=== PATIENT | female | born 1955 | race Caucasian/White ===

== ENCOUNTER 2018-10-11 22:30 | Emergency (ER) | payer BC, SELFPAY ==
--- NOTE | 2018-10-11 00:02 | DI.CT_ITS ---
SYMPTOM/DIAGNOSIS: RUQ PAIN CT ABDOMEN AND PELVIS: The study was carried out with intravenous administration of 87 cc Omnipaque 350. The liver is unremarkable. There is no evidence of cholelithiasis or cholecystitis. There is no evidence of ductal dilatation. The pancreas and spleen are intact. The kidneys are unremarkable. The adrenals are intact. There is no evidence of bowel obstruction. Note is made of diverticulosis. There is nothing to suggest an acute appendix. The bladder is unremarkable. The reproductive organs as visualized are unremarkable. There is no evidence of free air or fluid in the intraperitoneal space. Note is made of an L-5 on S-1 grade 1 listhesis. The soft tissues are unremarkable. There is no evidence of an aortic aneurysm. There is no evidence of lymphadenopathy. SUMMARY: No evidence of an acute abdomen.
[2018-10-11 22:33] VITALS: BP 137/52; PULSE 73; RESP 20; TEMP 36.3; O2SAT 100
--- NOTE | 2018-10-11 22:44 | ED.GENADUL_ITS ---
Discharge Plan Disposition Patient Disposition: HOME Condition: Good Discharge Details Chief Complaint: Abd Prob Clinical Impression: Abdominal pain Primary Care Provider: Lionel Andres ED Provider: Sean Salcedo Home Meds and New Rx's Prescriptions: Continued albuterol sulfate [ProAir HFA] 8.5 GM HFA aerosol inhaler 2 puff Inhalation Q6H PRN Qty: 1 RF: 4 Discharge Instructions Instructions: Abdominal Pain (ED) Additional Instructions: Your laboratory studies and CT scan were unremarkable tonight other than a low potassium. Please follow-up with primary care for further evaluation especially if intermittent pain. Return to ED if you develop persistent/worsening pain, fever, vomiting, chest pain, shortness of breath. Referrals: Lionel Andres MD [Primary Care Provider] - Medical Decision Making <Haroldo Chung NP - Last Filed: 10/12/18 00:54> Patient presenting to the emergency department for chief complaint of abdominal pain. Patient states approximately 15 minutes prior to arrival she was sitting on the couch watching TV when she had severe sudden right upper quadrant and epigastric pain. Patient states that this is similar to previous episodes of gallbladder attack that happened years ago but they did not remove her gallbladder at that time. Patient does state some nausea associated but otherwise denies any chest pain, shortness of breath, difficulty breathing change in bowel or bladder function. Physical exam shows guarding to the right upper quadrant and tenderness to the epigastrium otherwise unremarkable physical exam. Plan to check labs and CT image of the abdomen. Patient denies any need for pain medication at this time as she states that most of her symptoms have resolved. EKG performed with labs to rule out silent AR and shows sinus rhythm, rate of 61, no STEMI. Nondiagnostic EKG reviewed with attending physician Dr. Salcedo. Review of labs shows unremarkable CBC, CMP that shows slightly decreased potassium, mildly elevated BUN, and elevated AST of 67 otherwise normal bilirubin and other LFTs are within normal limits. <Sean Salcedo MD - Last Filed: 10/12/18 00:34> Patient signed out to me pending CT scan results. She had presented with mostly right upper quadrant abdominal pain which subsequently resolved after 15 to 20 minutes. She has had no recurrence. Her EKG and labs are unremarkable other than low potassium which I will replace. Her CT scan is unremarkable per preliminary radiology read. She has had an ultrasound about a year and a half ago which showed questionable cholelithiasis. She had not had any further episodes of pain like this since that time. Will refer to primary care for follow-up. Return to ED for recurrent/persistent abdominal pain, fever, chest pain, vomiting. Medical Records Medical records reviewed: Yes I reviewed the patient's medical records. Lab Data Lab results reviewed: Yes I reviewed the patient's lab results. HPI <Haroldo Chung NP - Last Filed: 10/12/18 00:54> General Mode of arrival: ambulatory . Date/Time Provider Initiated Documentation: 10/11/18 22:32 . Limitations to Documentation: no limitations . Information obtained by: patient and RN notes reviewed . History of Present Illness 62 year old F presents to the emergency department with the chief complaint of right upper quadrant epigastric pain, described as severe and similar to prior episodes, Quality is described as sharp, and is localized to the abdomen (Right upper quadrant and epigastric). Patient started experiencing this minute(s) (15) and it has been now resolved. No relieving factors improve symptom(s), No exacerbating factors reported . Patient did receive the following treatments prior to arrival, none Related Data Home Medications Medication Instructions Recorded Confirmed albuterol sulfate [ProAir HFA] 2 puff INHALATION Q6H PRN #1 04/12/16 10/11/18 inhaler Allergies Allergy/AdvReac Type Severity Reaction Status Date / Time cinoxate Allergy Mild Verified 10/11/18 22:37 homosalate Allergy Mild Verified 10/11/18 22:37 octinoxate Allergy Mild Verified 10/11/18 22:37 oxybenzone Allergy Mild Verified 10/11/18 22:37 padimate O Allergy Mild FROM Verified 10/11/18 22:37 SUNBLOCK titanium Allergy Mild Verified 10/11/18 22:37 ANIMAL DANDER Allergy Mild CONGESTION Uncoded 10/11/18 22:37 General Stated Complaint: Abd Prob MARAH: 3 Review of Systems <Haroldo Chung NP - Last Filed: 10/12/18 00:54> Constitutional Denies chills, Denies fever(s) and Denies poor appetite Cardiovascular Denies chest pain and Denies dyspnea Respiratory Denies cough and Denies dyspnea Gastrointestinal Reports as per HPI, Reports abdominal pain, Denies melena, Denies change in bowel habits, Denies constipation, Denies diarrhea, Reports nausea and Denies vomiting Genitourinary Denies hematuria, Denies urinary incontinence, Denies urinary hesitancy and Denies urinary urgency Integumentary/Breasts Denies rash PFSH <Haroldo Chung NP - Last Filed: 10/12/18 00:54> Surgical History Breast, Lumpectomy Breast, Mastectomy (12/03/02) Endometrial Biopsy Family History Mother Neoplasm Father Neoplasm Sister Heart disease Brother Lupus Neoplasm Brother No problems noted. Grandfather Neoplasm Grandfather Heart disease Grandmother Stroke Grandmother No problems noted. Maternal Aunt Neoplasm Son No problems noted. Son No problems noted. Daughter No problems noted. Social History Smoking/Tobacco Use Status: Never Alcohol Intake: never Drug use: Never Substance use type: does not use Do you feel safe at home: Yes Do you feel safe in your relationship?: Yes Exam <Haroldo Chung NP - Last Filed: 10/12/18 00:54> Const General: cooperative Orientation: alert, awake and oriented x3 Resp Effort & Inspection: normal respiratory effort and able to speak in complete sentences Auscultation: clear to auscultation bilaterally Cardio Rate: regular rate Rhythm: regular rhythm Heart Sounds: S1 normal and S2 normal GI Palpation: soft, no hepatosplenomegaly, not firm, guarding in the RUQ, no masses, no pulsatile masses, not rigid, no splenomegaly and tender in the epigastrum Auscultation: normal bowel sounds Back/Spine/Pelvis Back: no CVA tenderness Neuro General: alert, awake, oriented x3, gait normal and moves all extremities Course <Haroldo Chung NP - Last Filed: 10/12/18 00:54> Vital Signs Temperature 36.3 C L 10/11/18 22:33 Pulse 73 10/11/18 22:33 Respiratory Rate 20 10/11/18 22:33 Blood Pressure 137/52 L 10/11/18 22:33 Pulse Oximetry 100 10/11/18 22:33 Temperature 36.3 C L 10/11/18 22:33 Temperature Source Skin 10/11/18 22:33 Pulse 73 10/11/18 22:33 Respiratory Rate 20 10/11/18 22:33 Blood Pressure 137/52 L 10/11/18 22:33 Blood Pressure Position Sitting 10/11/18 22:33 Pulse Oximetry 100 10/11/18 22:33 Oxygen Delivery Method Room Air 10/11/18 22:33 Oxygen Flow Rate 0 10/11/18 22:33 Pain Level 2 10/11/18 22:33 Sign Out <Haroldo Chung NP - Last Filed: 10/12/18 00:54> Sign Out Data: Sign Out Comment: Pending CT imaging and results patient signed out to Dr. Salcedo for further disposition and treatment as needed. Last updated by Haroldo Chung NP at 10/11/18 23:52
[2018-10-11 23:12] LABS: Abs Immature Grans 0.01 k/cumm (0.0-0.09); Absolute Basophil Count 0.02 k/cumm (0.0-0.2); Absolute Eosinophil Count 0.11 k/cumm (0.0-0.7); Absolute Lymphocyte Count 2.21 k/cumm (1.2-3.4); Absolute Monocyte Count 0.62 k/cumm (0.11-0.7); Absolute Neutrophil Count 3.25 k/cumm (1.2-6.7); Basophils % 0.3; Eosinophils % 1.8; HCT 38.4 % (36.0-46.0); HGB 12.7 g/dL (12.0-15.5); Immature Grans % 0.2; Lymphocytes % 35.5; Mean Corp. HGB Concentration 33.1 g/dL (32.0-36.0); Mean Corpuscular Hemoglobin 30.3 pg (27.0-33.0); Mean Corpuscular Volume 91.6 fL (80-95); Mean Platelet Volume 9.2 fL (8.0-11.0); Neutrophils % 52.2; Platelet Count 287 x1000/uL (130-400); RBC 4.19 m/cumm (4.00-5.20); RBC Distribution Width 13.5 % (11.7-14.6); White Blood Cell Count 6.22 k/cumm (4.4-10.8)
[2018-10-11 23:33] LABS: ALT 48 U/L (12-78); AST 67 U/L (15-37); Albumin 3.5 g/dL (3.4-5.0); Alkaline Phosphatase 99 U/L (46-116); Anion Gap 5.9 mmol/L (3-11); BUN 19 mg/dL (7-18); Bilirubin, Total 0.2 mg/dL (0.2-1.0); CO2 31.1 mmol/L (21.0-32.0); CREATININE 0.78 mg/dL (0.55-1.02); Calcium 8.6 mg/dL (8.5-10.1); Chloride 102 mmol/L (98-107); Glucose 117 mg/dL (70-100); Lipase 174 U/L (73-393); Magnesium 2.1 mg/dL (1.8-2.4); Potassium 3.1 mmol/L (3.5-5.1); Sodium 139 mmol/L (136-145); Total Protein 6.9 g/dL (6.4-8.2); Troponin I < 0.02 ng/mL (0.00-0.06)
[2018-10-11 23:47] VITALS: BP 128/56; PULSE 73; RESP 18; TEMP 36.5; O2SAT 100
[2018-10-12] MEDS: Omnipaque 350 MG/ML 100 ML BTL IJ (00:02)
[2018-10-12] MEDS: Normal Saline 1,000 ML 1000 ML IV (00:15)
--- NOTE | 2018-10-12 00:17 | DI.VRAD_ITS ---
EXAM: CT Abdomen and Pelvis With Contrast EXAM DATE/TIME: 10/11/2018 10:43 PM CLINICAL HISTORY: 62 years old, female; Abdominal pain; Localized; Right upper quadrant (ruq); Prior surgery; Surgery date: 6+ months; Surgery type: RT breast mastectomy 16 years ago TECHNIQUE: Imaging protocol: Axial computed tomography images of the abdomen and pelvis with intravenous contrast. Coronal and sagittal reformatted images were created and reviewed. Radiation optimization: All CT scans at this facility use at least one of these dose optimization techniques: automated exposure control; mA and/or kV adjustment per patient size (includes targeted exams where dose is matched to clinical indication); or iterative reconstruction. Contrast material: [id number]; Contrast volume: 87 ml; Contrast route: IV 20G LT AC; COMPARISON: CT ABD PELVIS WITH CONTRAST 08/06/2016 8:39 AM FINDINGS: ABDOMEN: Liver: No suspicious lesions. Gallbladder and bile ducts: No acute or concerning findings. Pancreas: Unremarkable. No ductal dilation. Spleen: No suspicious lesions. Adrenals: Unremarkalbe. No suspicious mass. Kidneys and ureters: Unremarkable. No hydro. No suspicious lesions. Stomach and bowel: Colonic diverticulosis. Appendix: No evidence of appendicitis. PELVIS: Bladder: Unremarkable as visualized. Reproductive: Unremarkable as visualized. ABDOMEN and PELVIS: Intraperitoneal space: No free air. No significant fluid collection. Bones/joints: Bilateral L5 pars defects. Grade 1 anterior listhesis of L5 on S1. Soft tissues: Unremarkable. Vasculature: Unremarkable. No acute findings Lymph nodes: Unremarkable. IMPRESSION: No acute findings. Dictated and Authenticated by: Sky Villalpando MD. Ordering:RODRIGO Zarco MD
[2018-10-12 00:20] LABS: Bilirubin Negative (Negative); Blood Negative (Negative); Clarity Clear; Glucose Negative (Negative); Ketones Negative (Negative); Leukocyte Esterase Negative (Negative); Nitrite Negative (Negative); Urobilinogen 0.2 EU/dL (Up TO 0.2)
[2018-10-12] MEDS: Potassium Chloride 20 MEQ TABCR 40 MEQ PO (00:28)
[2018-10-12 00:54] VITALS: BP 134/51; PULSE 75; RESP 16; TEMP 36.5; O2SAT 99
== END 2018-10-12 00:59 | disposition home or self-care (01) ==
PROVIDERS: Nurse Practitioner Family; Emergency Provider Emergency Medicine; PCP Family Medicine
DX: R10.9 Unspecified abdominal pain (principal)
CPT/HCPCS: 36415; 80053; 83690; 93005; 96360; 99285; 74177; 81003; 83735; 84484; 85025; 93010; 99284; J3490

== ENCOUNTER 2018-11-20 13:47 | Outpatient (CLI) | payer BC, SELFPAY ==
[2018-11-20 14:57] LABS: BUN 14 mg/dL (7-18); CREATININE 0.81 mg/dL (0.55-1.02); Calcium 8.9 mg/dL (8.5-10.1); Chloride 102 mmol/L (98-107); Glucose 143 mg/dL (70-100); Potassium 3.9 mmol/L (3.5-5.1); Sodium 142 mmol/L (136-145)
== END 2018-11-20 14:07 ==
PROVIDERS: PCP Family Medicine; Visit Provider Family Medicine
DX: E87.6 Hypokalemia (principal)
CPT/HCPCS: 36415; 80048

== ENCOUNTER 2018-12-19 00:50 | Outpatient (CLI) | payer BC, SELFPAY ==
--- NOTE | 2018-12-19 07:30 | MERGE_ITS ---
*[facility]* *[facility]* [address] [place] [address] Date of study: 12/19/2018 Transthoracic Echocardiography M-mode, complete 2D, complete spectral Doppler, and color Doppler *STUDY CONCLUSIONS* Summary: 1. Left ventricle: The cavity size was normal. Wall thickness was normal. Systolic function was at the lower limits of normal. The estimated ejection fraction was 50-55%. Wall motion was normal; there were no regional wall motion abnormalities. 2. Aortic valve: There was mild to moderate stenosis. There was moderate to severe regurgitation. Peak velocity (S): 2.7m/sec. Mean gradient (S): 18.2mm Hg. Valve area (VTI): 1.2cm^2. Peak velocity ratio of LVOT to aortic valve: 0.37. 3. Mitral valve: There was mild regurgitation. 4. Right ventricle: The cavity size was normal. Wall thickness was normal. Systolic function was normal. *PATIENT PRESENTATION* Height: 162.6cm (64in ) S/D Pressure: 98 / 53 Weight: 60.3kg (132.7lb ) BSA: 1.66m^2 Test start time: 07:40 AM. Test stop time: 08:40 AM. PERFORMING Unknown CONSULTING Lionel Andres ORDERING Lionel Andres REFERRING Lionel Andres PERFORMING [facility] TRACK INSPECTOR RT Erich (R)(CARMINE), JOSE *PROCEDURE DATA* Procedure information: This study was interpreted by [facility]. Pertinent images and digital data are archived for permanent storage and are available for subsequent review. Comparison was made to the study of January 2013. Study status: Routine. Transthoracic echocardiography. M-mode, complete 2D, complete spectral Doppler, and color Doppler. A Transthoracic Echocardiogram was performed. Scanning was performed from the parasternal, apical, subcostal, and suprasternal notch acoustic windows. Images were obtained using an [id number] cardiac ultrasound machine. Image quality was good. Study completion: The patient tolerated the procedure well. There were no complications. History: PMH: AI I35.0. *CARDIAC ANATOMY* Left ventricle: The cavity size was normal. Wall thickness was normal. Systolic function was at the lower limits of normal. The estimated ejection fraction was 50-55%. Wall motion was normal; there were no regional wall motion abnormalities. Diastolic parameters were normal. Aortic valve: Trileaflet; mildly thickened, mildly calcified leaflets. Mobility was not restricted. Doppler: There was mild to moderate stenosis. There was moderate to severe regurgitation. VTI ratio of LVOT to aortic valve: 0.37. Valve area (VTI): 1.2cm^2. Indexed valve area (VTI): 0.7cm^2/m^2. Peak velocity ratio of LVOT to aortic valve: 0.37. Valve area (Vmax): 1.2cm^2. Indexed valve area (Vmax): 0.7cm^2/m^2. Mean velocity ratio of LVOT to aortic valve: 0.36. Valve area (Vmean): 1.2cm^2. Indexed valve area (Vmean): 0.7cm^2/m^2. Mean gradient (S): 18.2mm Hg. Peak gradient (S): 30mm Hg. Aorta: Aortic root: The aortic root was normal in size. Mitral valve: Mildly thickened leaflets. Mobility was not restricted. Doppler: Transvalvular velocity was within the normal range. There was no evidence for stenosis. There was mild regurgitation. Valve area by pressure half-time: 4.1cm^2. Indexed valve area by pressure half-time: 2.5cm^2/m^2. Left atrium: The atrium was normal in size. Right ventricle: The cavity size was normal. Wall thickness was normal. Systolic function was normal. Pulmonic valve: The pulmonary valve appears to be grossly normal. Doppler: Transvalvular velocity was within the normal range. There was no evidence for stenosis. There was mild regurgitation. Peak gradient (S): 1.6mm Hg. Tricuspid valve: Structurally normal valve. Doppler: Transvalvular velocity was within the normal range. There was no evidence for stenosis. There was trivial regurgitation. Pulmonary artery: Pulmonary systolic pressure was within the normal range. Right atrium: The atrium was normal in size. Pericardium: There was no pericardial effusion. Systemic veins: Inferior vena cava: Well visualized. The vessel was patent and normal in size. The respirophasic diameter changes were in the normal range (greater than or equal to 50%). Baseline ECG: Normal sinus rhythm. Measurements Left ventricle Value Reference LV ID, ED, PLAX 5.0 cm 3.5 - 6.0 LV ID, ES, PLAX 3.6 cm 2.1 - 4.0 LV PW thickness, ED, PLAX 1.0 cm LV end-diastolic volume, 1-p A2C 84 ml LV ejection fraction, 1-p A2C 64 % LV end-diastolic volume, 1-p A4C 89 ml LV ejection fraction, 1-p A4C 57 % LV e', lateral 0.082 m/sec LV E/e', lateral 8 LV e', medial 0.102 m/sec LV E/e', medial 6 LV e', average 0.092 m/sec LV E/e', average 7 Ventricular septum Value Reference IVS thickness, ED, PLAX 0.9 cm LVOT Value Reference LVOT ID, A-P 2.0 cm LVOT area 3.2 cm^2 LVOT peak velocity, S 1.01 m/sec LVOT mean velocity, S 0.74 m/sec LVOT VTI, S 26.6 cm LVOT peak gradient, S 4.1 mm Hg LVOT mean gradient, S 2.4 mm Hg Stroke volume (SV), LVOT DP 85 ml Stroke index (SV/bsa), LVOT DP 51 ml/m^2 Aortic valve Value Reference Aortic valve peak velocity, S 2.7 m/sec Aortic valve mean velocity, S 2.1 m/sec Aortic valve VTI, S 71.0 cm Aortic mean gradient, S 18.2 mm Hg Aortic peak gradient, S 30 mm Hg VTI ratio, LVOT/AV 0.37 Aortic valve area, VTI 1.2 cm^2 Velocity ratio, peak, LVOT/AV 0.37 Aortic valve area, peak velocity 1.2 cm^2 Velocity ratio, mean, LVOT/AV 0.36 Aortic valve area, mean velocity 1.2 cm^2 Aortic valve area/bsa, mean velocity 0.7 cm^2/m^2 Aortic regurg deceleration 418 cm/s^2 Aortic regurg pressure half-time 344 ms Aorta Value Reference Aortic root ID, ED 2.9 cm Ascending aorta ID, A-P, S 3.5 cm RVOT Value Reference RVOT VTI, S 10.0 cm Left atrium Value Reference LA volume/bsa, ES, 1-p A4C 44 ml/m^2 LA volume, ES, 2-p 51 ml LA volume/bsa, ES, 2-p 31 ml/m^2 Mitral valve Value Reference Mitral E-wave peak velocity 0.64 m/sec Mitral A-wave peak velocity 0.6 m/sec Mitral deceleration time 183 ms 150 - 230 Mitral pressure half-time 53 ms Mitral E/A ratio, peak 1.06 Mitral valve area, PHT, DP 4.1 cm^2 Pulmonary veins Value Reference Pulmonary vein peak velocity, S 0.44 m/sec Pulmonary vein peak velocity, D 0.48 m/sec Pulmonary vein velocity ratio, peak, 0.92 S/D Pulmonary vein A-wave reversal peak 0.31 m/sec velocity Tricuspid valve Value Reference Tricuspid regurg peak velocity 2.3 m/sec Tricuspid peak RV-RA gradient 21.4 mm Hg Right atrium Value Reference RA area, ES, A4C 15.8 cm^2 8.3 - 19.5 Pulmonic valve Value Reference Pulmonic peak gradient, S 1.6 mm Hg Legend: (L) and (H) tapan values outside specified reference range. I have personally reviewed the images and have reviewed and edited the reported findings. Electronically signed by Florentino Cabrera 12/19/2018 10:31
== END 2018-12-19 01:10 ==
PROVIDERS: PCP Family Medicine; Visit Provider Family Medicine
DX: I35.2 Nonrheumatic aortic (valve) stenosis with insufficiency (principal); I34.0 Nonrheumatic mitral (valve) insufficiency
CPT/HCPCS: 93306

== ENCOUNTER 2019-11-29 03:04 | Outpatient (CLI) | payer BC, SELFPAY ==
[2019-11-29 09:14] LABS: Anion Gap 5.3 mmol/L (3-11); BUN 11 mg/dL (7-18); CO2 29.7 mmol/L (21.0-32.0); CREATININE 0.84 mg/dL (0.55-1.02); Calcium 8.8 mg/dL (8.5-10.1); Calculated LDL 121 mg/dL (<100); Chloride 105 mmol/L (98-107); Cholesterol 199 mg/dL (<200); Glucose 107 mg/dL (74-106); HDL Cholesterol 59 mg/dL (40-60); Potassium 4.1 mmol/L (3.5-5.1); Sodium 140 mmol/L (136-145); Triglyceride 95 mg/dL (<150)
== END 2019-11-29 03:24 ==
PROVIDERS: PCP Family Medicine; Visit Provider Family Medicine
DX: Z00.00 Encounter for general adult medical examination without abnormal findings (principal)
CPT/HCPCS: 36415; 80048; 80061

== ENCOUNTER 2020-01-02 04:33 | Outpatient (CLI) | payer BC, SELFPAY ==
--- NOTE | 2020-01-02 07:28 | DI.US_ITS ---
APPROVED REPORT EXAM: Comprehensive 2D, Doppler, and color-flow Echocardiogram Patient Location: Out-Patient [facility] Preparer: Quin Mullins RDCS (AE) Indications: Aortic Insufficiency Other Information Study Quality: Good Conclusion Left ventricle is top normal in size. Normal wall thickness. Estimated ejection fraction is 60%. T here are no segmental wall motion abnormalities Normal right ventricular size and function Both the left atrium and right atrium are normal in size The aortic valve is sclerotic and trileaflet. There is mild to moderate aortic stenosis. Peak gradi ent is 29 mmHg, mean 16 mmHg, calculated aortic valve area 1.35 cm???. There is moderate aortic regu rgitation Mildly thickened mitral leaflets. Mild to moderate mitral regurgitation Structurally normal pulmonic valve with moderate regurgitation Structurally normal tricuspid valve. Trace to mild tricuspid regurgitation. Normal estimated right ventricular systolic pressure Normal size aortic root Mildly dilated ascending aorta measuring 3.63 cm Wall motion Left Ventricle The left ventricle is top normal size. The left ventricular systolic function is normal. The left jewel tricular ejection fraction is within the normal range. There is normal left ventricular wall thicknes s. There is normal LV segmental wall motion. There is no ventricular septal defect visualized. LVEF i s 60%. Right Ventricle The right ventricle is normal size. The right ventricular systolic function is normal. The RVSP is 17 .1 mmHg. Atria The left atrium size is normal. The right atrium size is normal. The interatrial septum is intact wit h no evidence for an atrial septal defect. Aortic Valve Aortic valve is calcified. Aortic valve is trileaflet. Mild to moderate aortic stenosis. Peak aortic valve gradient is 29.4mmHg. Highest mean aortic valve gradient is 16.3mmHg. Calculated ELLA by the con tinuity equation is 1.38cm2. Moderate aortic regurgitation. Mitral Valve Mildly thickened mitral leaflets No evidence of mitral valve stenosis. Mild to moderate mitral regurg itation. Tricuspid Valve The tricuspid valve is normal in structure. There is no tricuspid valve stenosis. Trace to mild tricu spid regurgitation. Pulmonic Valve The pulmonary valve is normal in structure. There is no pulmonic valvular stenosis. Moderate pulmonic regurgitation. Great Vessels The aortic root is normal in size. The ascending aorta is moderately dilated. Aortic arch is normal i n caliber. IVC is normal in size and collapses >50% with inspiration. Pericardium There is no pericardial effusion. 2D Dimensions IVSD d PLAX 0.73 cm F: 0.6-1.0 LV Vol A2C d MOD 97.9 mL LVPW d PLAX 0.74 cm F: 0.6 - 1.0 LV Vol A4C d MOD 121.4 mL LVID d PLAX 5.03 cm F: 3.8 - 5.2 LA vol/ BSA A2C s A-L 29.8 mL/m2 LVDs 3.65 cm F: 2.2 - 3.5 LA vol/ BSA A4C s A-L 29.8 mL/m2 Ao Root d 3.05 cm F: 2.7 - 3.3 LA Vol/ BSA Biplane s A-L 32.3 mL/m2 RA Area A4C 13.50 cm2 LA Area A4C s MOD 17.75 cm2 RA Vol/ BSA A4C s A-L 20.7 mL/m2 LA Area A2C s MOD 16.40 cm2 Ao Asc Diam d 3.63 cm F: 2.3 - 3.1 LV EF A4C MOD 50.1 % LV EF Teichholz 53.0 % LV EF A2C MOD 48.2 % LVEF (Lentz's) 48.60 % F: 54 - 74 LV EF Biplane MOD 48.6 % LV Volume 87.89 mL F: 46 - 106 SV 53.30 mL LV Volume Index 53.26 mL/m2 F: 29 - 61 SV Index 32.12 mL/m2 LV Vol Biplane MOD 109.7 mL FS 27.40 % M-Mode TAPSE 2.69 cm (M/F) >1.7 LV Diastology MV E' medial 0.093 (>0.07 m/s) E/A Ratio 1.2 LV E/e MED 9.15 (<14) MV E Vmax 0.85 (0.4-1.3 m/s) MV E' lateral 0.108 (>0.1 m/s) MV A Vmax 0.70 (0.4-1.3 m/s) LV E/e LAT 7.90 (<14) MV E/A Ratio 1.17 MV E/E' medial 9.19 MV E/E' lateral 7.94 Aortic Valve LVOT Area 3.13 cm2 AoV Area Vmax 1.38 cm2 LVOT Vmax 1.20 m/s AoV Area/ BSA (Vmax) 0.83 cm2/m2 LVOT Mean Saul. 0.83 m/s ELLA Mean Saul. 1.34 cm2 LVOT Peak Grad 5.7 mmHg ELLA Mean Saul. Index 0.81 cm2/m2 LVOT Mean Grad 3.1 mmHg AR DT 1595 msec LVOT VTI 0.326 m AR PHT 463 msec LVOT Diam s 1.95 cm AoV Vmax 2.71 m/s Velocity Ratio 0.44 AoV Mean Saul. 1.92 m/s AoV Peak Grad 29.4 mmHg LVOT SV 101.97 mL AoV Mean Grad 16.3 mmHg AoV VTI 0.653 m AoV Area VTI 1.56 cm2 AoV Area/ BSA (VTI) 0.94 cm/m2 Mitral Valve MV DT 204 (160-240 msec) MR Vmax 4.69 m/s MV PHT 59 msec MR VTI 1.182 m MV Area PHT 3.72 cm2 MR Peak Grad 88.1 mmHg MR Mean Grad 60.7 mmHg Pulmonary Valve PV Vmax 0.80 (0.5-1.5 m/s) RVOT Peak Gr. 1.22 mmHg PV Peak Grad 2.6 mmHg RVOT Mean Gr. 0.65 mmHg PV Mean Grad 1.3 mmHg RVOT VTI 0.138 m PV VTI 0.176 m RVOT Vmax 0.55 m/s Tricuspid Valve TR Peak Grad 14.0 mmHg TR Vmax 1.88 m/s RA Pressure 3.00 mmHg RVSP (TR) 17.1 mmHg
== END 2020-01-02 04:53 ==
PROVIDERS: PCP Nurse Practitioner; Visit Provider Internal Medicine Cardiovascular Disease
DX: I35.1 Nonrheumatic aortic (valve) insufficiency (principal); I08.3 Combined rheumatic disorders of mitral, aortic and tricuspid valves; I77.810 Thoracic aortic ectasia
CPT/HCPCS: 93306

== ENCOUNTER 2020-07-22 13:56 | Emergency (ER) | payer BC, SELFPAY ==
[2020-07-22 14:00] VITALS: BP 115/46; PULSE 58; RESP 20; TEMP 36.8; O2SAT 99
--- NOTE | 2020-07-22 14:00 | DI.CT_ITS ---
EXAM: CT ABDOMEN PELVIS W CLINICAL HISTORY: Midepigastric abd pain, Nausea vomiting TECHNIQUE: Imaging Protocol: Axial computed tomography images with coronal and sagittal reformatted images were created and reviewed CONTRAST MATERIAL: Intravenous: Omnipaque 350 Contrast volume:100 mL Oral: No COMPARISON: CT CT ABDOMEN PELVIS W from 10/11/2018 FINDINGS: ABDOMEN: Lung Bases: There is an infiltrate in the right middle lobe including a reticular nodular component i n the right middle and adjacent right lower lobe. Liver: Normal density. No measurable mass. Portal, Superior Mesenteric, and Splenic Veins: Unremarkable. Gallbladder and Biliary Tract: Cholelithiasis. The extrahepatic bile duct measures up to 0.8 cm. No pericholecystic fluid or gallbladder wall thickening is seen. Pancreas: Normal density, no abnormal calcifications or inflammatory process. Spleen: Normal. Adrenals: No masses seen. Kidneys: Normal size, contour and axis. No radiodense stones or obstructive uropathy. No masses seen. Abdominal Aorta: Abdominal portion non-dilated. Bowel: No obstruction or bowel wall thickening. No evidence of appendicitis. There is diverticulosis of the descending and sigmoid colon but no evidence of acute diverticulitis. Peritoneal Cavity: No ascites, collection or mesenteric inflammatory response. No free air. Lymph Nodes: Within normal limits. Bones: L5 spondylolysis and grade 1 spondylolisthesis of L5 on S1. Degenerative changes seen at L5-S 1. Soft Tissues: Unremarkable. PELVIS: Bladder: Symmetric distention, no gross wall thickening. Reproductive Organs: Unremarkable as visualized. Lymph Nodes: Within normal limits. Bones: Within normal limits for the patient's age. IMPRESSION: 1. Cholelithiasis. Mild extrahepatic biliary ductal dilatation. If further imaging is warranted a g allbladder ultrasound may be obtained to assess for evidence acute cholecystitis. 2. Colonic diverticulosis but no evidence of acute diverticulitis. 3. Right middle and right lower lobe infiltrates. This may represent scarring, atelectasis or pneumo zoran. Clinical correlation is recommended. 4. Results of this exam have been verbally communicated with provider. RADIATION DOSE DELIVERED: 719.01mGy.cm Total DLP DATA REPOSITORY: All CT scans at this facility are submitted to the National Radiology Data Registry (NRDR) Dose Index Registry (DIR) with the [employer] ([employer]). RADIATION OPTIMIZATION: All CT scans at this facility use at least one of these dose optimization te chniques: automated exposure control; mA and/or kV adjustment per patient size (includes targeted exa ms where dose is matched to clinical indication); or iterative reconstruction.
--- NOTE | 2020-07-22 14:00 | RT.EKG_ITS ---
APPROVED REPORT Exam: Resting ECG Patient Location: E HR:47 bpm ECG Measurements Heart Rate 47 AXIS TN 155 P 67 QRSd 102 QRS 64 QT 534 T 42 QTc 473 Conclusion Sinus bradycardia...rate< 60 Probable left atrial enlargement...P >50mS, <-0.10mV V1 Normal [place] Otherwise normal ECG
--- NOTE | 2020-07-22 14:15 | ED.GENADUL_ITS ---
Discharge Plan Disposition Patient Disposition: HOME Condition: Stable Discharge Details Clinical Impression: Cholelithiasis Primary Care Provider: Clara Garcia ED Provider: Apoorva Mariee Home Meds and New Rx's Prescriptions: New ondansetron 4 mg tablet,disintegrating 4 mg PO Q6H PRN (Reason: nausea and vomiting) Qty: 10 RF: 0 Continued albuterol sulfate [ProAir HFA] 90 mcg/actuation HFA aerosol inhaler 2 puff IH Q6H PRN (Reason: shortness of breath or wheezing) Qty: 8.5 RF: 4 fluticasone propionate [Flonase Allergy Relief] 50 mcg/actuation spray,suspension 1 spray MANDY DAILY RF: 0 Zyrtec 10 mg capsule 10 mg PO DAILY RF: 0 Discharge Instructions Instructions: Biliary Colic (ED), Gallstones (ED) Additional Instructions: As we discussed, you do have gallstones in your gallbladder. This is likely what caused your pain today. Please try to avoid fatty food as we discussed. You have an appointment with general surgery on at 1130. However, in the meantime if you develop any fever/chills, inability stay hydrated, patient pain or other new/worsening symptoms seek care urgently once again. You have been prescribed Zofran if you have recurrence of your nausea. Referrals: Clara Garcia, BRANDON [Primary Care Provider] - Germaine Garcia DO [OSTEOPATHIC DOCTOR] - 07/24/20 11:30 am Discharge Data Discharge Date/Time-TO BE ENTERED AT DEPARTURE: 07/22/20 17:37 Medical Decision Making <Ana Walton - Last Filed: 07/25/20 08:30> 54-year-old female presents to the ER chief complaint of midepigastric abdominal pain associated with nausea vomiting and loose stools. Patient reports that this began around noon. She reports that the pain radiates to the left side of her abdomen and chest. She does appear pale. She does have a past medical history of osteopenia, breast cancer, GI malignancy, asthma, aortic insufficiency, aortic stenosis, arthritis. She takes no prescription medications other than Flonase and albuterol. She denies any hematemesis or hematochezia. Denies any abdominal surgeries. She is a non-smoker does drink 1-2 drinks a day. EKG was reviewed by Nadeem Salcedo MD ER attending, please see his official report. Old EKG is available for review no significant change noted.. Work-up ordered including EKG, troponin, CBC, CMP, lipase, urinalysis, stool PCR, CT abdomen pelvis with IV contrast. White blood cell count is 14.83, absolute neutrophils 12.37, absolute monocytes 1.01, CMP is largely within normal limits, glucose 122, AST 93, initial troponin is within normal limits less than 0.05. Differential diagnosis includes but not limited to coronary artery disease, AAA, cholecystitis, gastroenteritis, small bowel obstruction. 1531: Patient returns from diagnostic imaging patient feels much better after the nausea medication, reports improvement in pain at this time. 1542: Spoke with radiologist Dr. Mathis regarding patient's CT results he reports positive gallstones with a common bile duct measuring approximately 8 mm. He reports no evidence for cholecystitis however, the patient's white blood cell count being elevated at 14.83 this could be a possibility. Care is to be handed off to oncoming provider DEBBIE Hurst pending surgery consult and ultrasound to rule out cholecystitis. <DEBBIE Pace - Last Filed: 07/22/20 17:56> Care transition myself from Belen Oliveira NP with ultrasound and disposition pending. Please see her note regarding initial presentation, history and exam. In brief, patient is a pleasant 54-year-old female who has had no gallstones historically. Presented today with severe abdominal pain. Pain came on after eating a very rich yogurt. Patient reports that this is atypical for her. Labs are significant for leukocytosis with a white count of 14. Lipase is normal. Cardiac work-up was normal. CT scan was initially obtained showing cholelithiasis with mild extrahepatic biliary ductal dilation. Advised gallbladder ultrasound if there was concern for acute cholecystitis. There was question if she may have a pneumonia on CT scan but this does not correlate clinically. Ultrasound was obtained and reviewed by radiologist: FINDINGS: Liver: Normal. No masses. Gallbladder: Cholelithiasis present. 4 mm stones present in the gallbladder neck and possibly cystic duct. Gallbladder wall thickness 1.5 mm. Negative sonographic Hahn sign. Common bile duct: 7.2 mm. Pancreas: Visualized pancreas is unremarkable. Right kidney: In the 8.7 cm. No nephrolithiasis or hydronephrosis. IMPRESSION: Cholelithiasis. 4 mm stone present in the gallbladder neck or proximal cystic duct. No gallbladder wall thickening or edema around the gallbladder. Consult with Dr. Oneil. She advised that the findings should be followed up electively in the office. She is able to make an appointment with another general surgeon this week on . Discussed these findings with the patient. She received Zofran when she was initially evaluated. Patient reports that her symptoms are resolved. She is resting comfortably. Patient I discussed dietary changes to help prevent recurrence of symptoms. She did have significant nausea initially, plan to prescribe Zofran if this works well for her. Strict return precautions were discussed. Also questions and concerns were addressed she is in agreement this plan. Patient will follow up with general surgery on . HPI <Ana Walton - Last Filed: 07/25/20 08:30> General Mode of arrival: ambulatory . Date/Time Provider Initiated Documentation: 07/22/20 13:59 . Limitations to Documentation: no limitations . Information obtained by: patient . HPI Narrative: 54-year-old female presents to the ER chief complaint of midepigastric abdominal pain associated with nausea vomiting and loose stools. Patient reports that this began around noon. She reports that the pain radiates to the left side of her abdomen and chest. She does appear pale. She does have a past medical history of osteopenia, breast cancer, GI malignancy, asthma, aortic insufficiency, aortic stenosis, arthritis. She takes no prescription medications other than Flonase and albuterol. She denies any hematemesis or hematochezia. Denies any abdominal surgeries. She is a non-smoker does drink 1-2 drinks a day. Related Data Home Medications Medication Instructions Recorded Confirmed cetirizine 10 mg capsule 10 mg PO DAILY 11/17/18 07/22/20 fluticasone propionate 50 1 spray MANDY DAILY 10/12/19 07/22/20 mcg/actuation nasal spray,suspension albuterol sulfate 90 mcg/actuation 2 puff IH Q6H PRN #8.5 gm 11/22/19 07/22/20 aerosol inhaler ondansetron 4 mg PO Q6H PRN #10 tab 07/22/20 Previous Rx's Medication Instructions Recorded albuterol sulfate 90 mcg/actuation 2 puff IH Q6H PRN #8.5 gm 11/22/19 aerosol inhaler ondansetron 4 mg PO Q6H PRN #10 tab 07/22/20 Allergies Allergy/AdvReac Type Severity Reaction Status Date / Time cinoxate Allergy Mild Verified 07/24/20 11:31 homosalate Allergy Mild Verified 07/24/20 11:31 octinoxate Allergy Mild Verified 07/24/20 11:31 oxybenzone Allergy Mild Verified 07/24/20 11:31 padimate O Allergy Mild FROM Verified 07/24/20 11:31 SUNBLOCK titanium Allergy Mild Verified 07/24/20 11:31 ANIMAL DANDER Allergy Mild CONGESTION Uncoded 07/24/20 11:31 General Stated Complaint: Abd Prob MARAH: 3 Review of Systems <Ana Walton - Last Filed: 07/25/20 08:30> Narrative: Constitutional: Negative for weight loss, alert and oriented, well groomed, normal body habitus, appears uncomfortable. Appears pale. HEENT: Denies trauma, headaches, blurry vision, nasal discharge, sore throat, trouble swallowing. Chest: Denies chest pain, palpitations, irregular rhythm, hypertension. Respiratory: Denies Shortness of breath, cough, hemoptysis. GI: Denies constipation. Positive midepigastric abdominal pain, nausea vomiting and loose stools x2 days. : Denies dysuria, hematuria, flank pain, rectal bleeding. Neuro: Denies dizziness, blurry vision, weakness, syncope, headache or facial numbness. Hematologic: Denies easy bruising, intolerance to heat or cold, hair loss. PFS <Ana Walton - Last Filed: 07/25/20 08:30> Medical History (Updated 07/24/20 @ 12:17 by Germaine Garcia DO) Pleural effusion Skin tag of vaginal mucosa (02/23/16) seen on speculum exam, friable. Surgical History Breast, Lumpectomy 1989,10/31/02 Breast, Mastectomy (12/03/02) Dr Polo Lopez Endometrial Biopsy 09/06/14; [facility] History of gynecological procedure History of mastectomy Status post breast lumpectomy Family History Mother , 43 Colon cancer Liver cancer Father , 80 Bile duct cancer Sister Heart disease Brother Lupus Prostate cancer Brother No problems noted. Maternal Grandfather , 80s Skin cancer Leukemia Paternal Grandfather , 65 Heart disease Maternal Grandmother , 96 Stroke Paternal Grandmother , 97 No problems noted. Maternal Aunt Breast cancer Pancreatic cancer Son No problems noted. Son No problems noted. Daughter No problems noted. Social History Smoking/Tobacco Use Status: Never Smoking risk assessment performed?: Yes Alcohol Intake: current Alcohol Intake frequency: 0-2 drinks per day Alcohol type: beer and wine Drug use: Never Substance use type: does not use Counseling given: No Counseling provided: none Caregiver/Support person: No Household members: spouse Housing: house Communication Needs: None Do you need help understanding health information?: Rarely Pets and animals: Yes Pets and animals: other Details: Rabbit Sexually active: No Do you think of yourself as: straight/heterosexual Current gender identity: female What is your relationship status?: How often do you talk on the phone with friends or family?: twice per week How often do you get together with friends or relatives?: three or more times per week How often do you attend confucianist or worship services?: 4 or more times per year Do you belong to any clubs or organized social groups?: yes Panel score (0-1 are the most socially isolated patients): 4 What type of physical activity do you participate in: walking Duration: 15-30 minutes/day Frequency: daily Melvina/Confucianism: Church Special melvina needs: No Seatbelt use: always Helmet use: Yes Helmet use: always Drive intox or ride w/intox 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 Appears stated age. Normal body habitus. Head: Normocephalic, no trauma. Eyes: Pupils PERRLA, Red reflex noted, EOM's intact. Eyelids symmetrical without lesions, discharge, or swelling. ENT: Bilateral TM's WNL, External ear normal to inspection, no mastoid TTP, swelling, or erythema, Nasal turbinates WNL, no nasal discharge. Normal dentition, Posterior pharynx WNL, no exudate. Chest: Slightly bradycardic at a rate of 58, normal S1, S2, distal pulses intact. Resp: Lungs clear to auscultation bilaterally, no wheezes, rales, or rhonchi. Abdomen: Generalized tenderness to left upper quadrant, midepigastricl left lower quadrant tenderness. Bowel sounds are diminished. GI: Negative guaiac stool. Patient did have a loose brown BM while here in depa rtment. Musculoskeletal: Normal gait, 5/5 strength to all four extremities. Skin: No suspicious rashes or lesions. Capillary refill less than 2 sec. pale. Neurologic: Cranial nerves II-XII intact. Alert and oriented x 3. DTR's intact. Hematologic/Lymphatic: No ecchymosis, no lymphadenopathy. Course <Ana Walton - Last Filed: 07/25/20 08:30> Vital Signs Vital signs: Vital Signs Temperature 36.8 C 07/22/20 14:00 Pulse 58 L 07/22/20 14:00 Respiratory Rate 20 07/22/20 14:00 Blood Pressure 115/46 L 07/22/20 14:00 Pulse Oximetry 99 07/22/20 14:00 Temperature 36.8 C 07/22/20 14:00 Temperature Source Skin 07/22/20 14:00 Pulse 58 L 07/22/20 14:00 Respiratory Rate 20 07/22/20 14:00 Blood Pressure 115/46 L 07/22/20 14:00 Blood Pressure Position Sitting 07/22/20 14:00 Pulse Oximetry 99 07/22/20 14:00 Oxygen Delivery Method Room Air 07/22/20 14:00 Oxygen Flow Rate 0 07/22/20 14:00 Pain Level 8 07/22/20 14:00 Procedures <Ana Walton - Last Filed: 07/25/20 08:30> Stool Hemoccult Procedural Steps Taken: stool placed in appropriate test area, developer placed on stool and control areas and controls appropriately positive and negative Hemoccult result: negative Sign Out <Ana Walton - Last Filed: 07/25/20 08:30> Sign Out Data: Sign Out Comment: Pending Surgery Consult and US to R/O cholecystitis Last updated by Ana Walton at 07/22/20 15:58
[2020-07-22] MEDS: Ondansetron 4 MG/2 ML VIAL IVP (14:37)
[2020-07-22] MEDS: Normal Saline 1,000 ML 125 ML IV (14:37)
[2020-07-22 14:38] LABS: Abs Immature Grans 0.08 10^3/uL (0.0-0.06); Absolute Basophil Count 0.06 10^3/uL (0.0-0.2); Absolute Eosinophil Count 0.09 10^3/uL (0.0-0.7); Absolute Lymphocyte Count 1.23 10^3/uL (1.2-3.4); Absolute Monocyte Count 1.01 10^3/uL (0.1-0.8); Basophils % 0.4; Eosinophils % 0.6; HCT 39.1 % (36.0-46.0); HGB 12.7 g/dL (11.2-15.7); Immature Grans % 0.5; Lymphocytes % 8.3; MCHC 32.5 % (32.0-36.0); MCV 92.2 fL (80-95); MPV 9.2 fL (8.0-11.0); Monocytes % 6.8; Neutrophils % 83.4; Nucleated RBC 0 %; Platelet Count 333 10^3/uL (130-400); RBC 4.24 10^6/uL (3.93-5.22); RDW 13.1 % (11.7-14.6); WBC 14.83 10^3/uL (4.4-10.8)
[2020-07-22] MEDS: Normal Saline Flush 10 ML SYR IVP (14:38)
[2020-07-22 14:41] LABS: Absolute Neutrophil Count 12.37 10^3/uL (1.2-6.7)
[2020-07-22 14:50] LABS: ALT 57 U/L (14-59); AST 93 U/L (15-37); Albumin 3.7 g/dL (3.4-5.0); Alkaline Phosphatase 91 U/L (46-116); BUN 17 mg/dL (7-18); Bilirubin, Total 0.8 mg/dL (0.2-1.0); CREATININE 0.9 mg/dL (0.55-1.02); Calcium 8.8 mg/dL (8.5-10.1); Chloride 101 mmol/L (98-107); Glucose 122 mg/dL (74-106); Lipase 139 U/L (73-393); Magnesium 2.1 mg/dL (1.8-2.4); Potassium 3.5 mmol/L (3.5-5.1); Sodium 140 mmol/L (136-145); Total Protein 7.4 g/dL (6.4-8.2); Troponin I < 0.05 ng/mL (<0.06)
[2020-07-22] MEDS: Omnipaque 350 MG/ML 100 ML BTL IJ (15:25)
[2020-07-22] MEDS: Normal Saline - Diluent 50 ML VIAL IV (15:26)
--- NOTE | 2020-07-22 15:45 | DI.US_ITS ---
EXAM: US ABDOMEN LIMITED CLINICAL HISTORY: Eval Gallbladder, R/O cholecystitis TECHNIQUE: Ultrasound of complete upper abdomen performed using standard protocol. COMPARISON: CT scan performed same date FINDINGS: There is no ascites evident. LIVER: There are no hepatic lesions evident nor obvious dilatation of intrahepatic ducts. GALLBLADDER/BILIARY: Gallstones are noted. There is small 4 millimeter calculi evident gallbladder n dagoberto and cystic duct. Gallbladder wall thickness is upper normal. The common hepatic duct isslightly dilated, measuring 7mm at the level of rodney hepatis. PANCREAS: There is no evidence of pancreatic mass nor dilatation of the pancreatic duct. RIGHT KIDNEY:normal size with no evidence of solid mass, calculus, nor hydronephrosis. No cortical cy sts evident. IMPRESSION: 1. Cholelithiasis. No gallbladder wall edema nor pericholecystic fluid. 2. Common hepatic duct is slightly dilated measuring 7 millimeters. 3. There is no ascites. DATA REPOSITORY:
--- NOTE | 2020-07-22 16:36 | DI.VRAD_ITS ---
PROCEDURE INFORMATION: Exam: US Abdomen, Limited; Right Upper Quadrant Exam date and time: 07/22/2020 3:53 PM Age: 64 years old Clinical indication: Abdominal pain; Acute TECHNIQUE: Imaging protocol: US abdomen. Real time ultrasound with image documentation. Limited exam focused on the right upper quadrant. COMPARISON: US ABDOMEN ULTRASOUND (P) 07/30/2016 3:12 PM FINDINGS: Liver: Normal. No masses. Gallbladder: Cholelithiasis present. 4 mm stones present in the gallbladder neck and possibly cystic duct. Gallbladder wall thickness 1.5 mm. Negative sonographic Hahn sign. Common bile duct: 7.2 mm. Pancreas: Visualized pancreas is unremarkable. Right kidney: In the 8.7 cm. No nephrolithiasis or hydronephrosis. IMPRESSION: Cholelithiasis. 4 mm stone present in the gallbladder neck or proximal cystic duct. No gallbladder wall thickening or edema around the gallbladder. Dictated and Authenticated by: En Pulido MD. Ordering:TAINA Perez MD
[2020-07-22 17:15] LABS: Bilirubin Negative (Negative); Blood Negative (Negative); Clarity Clear (Clear); Glucose Negative (Negative); Ketones 15 mg/dL (Negative); Leukocyte Esterase Negative (Negative); Nitrite Negative (Negative); Specific Gravity 1.015 (1.005-1.025); Urobilinogen 0.2 EU/dL (Up TO 0.2)
[2020-07-22 17:27] VITALS: BP 116/52; PULSE 94; RESP 18; O2SAT 95
--- NOTE | 2020-07-22 17:29 | NUR.NOTE ---
Referral [facility] Th[facility]. July 24, 2020 at 11:[address] Dr. Avila Note:
[2020-07-22 17:53] VITALS: BP 116/52; PULSE 94; RESP 18; O2SAT 95
[2020-07-23 11:26] LABS: Campylobacter PCR Negative (Negative); Salmonella PCR Negative (Negative); Shiga Toxin PCR Negative (Negative); Shigella/Enteroinvasive Ecoli Negative (Negative)
== END 2020-07-22 17:37 | disposition home or self-care (01) ==
PROVIDERS: Registered Nurse Emergency; Emergency Provider Physician Assistant; PCP Nurse Practitioner
DX: K80.20 Calculus of gallbladder without cholecystitis without obstruction (principal); R11.2 Nausea with vomiting, unspecified
CPT/HCPCS: 36415; 80053; 83690; 87505; 93005; 96361; 96374; 99285; 74177; 76705; 81003; 83735; 84484; 85025; 93010; J2405; J3490

== ENCOUNTER 2020-07-24 00:35 | Outpatient (REF) | payer BC, SELFPAY ==
[2020-07-24 19:19] LABS: ALT 45 U/L (14-59); AST 30 U/L (15-37); Albumin 3.6 g/dL (3.4-5.0); Alkaline Phosphatase 76 U/L (46-116); Anion Gap 5.5 mmol/L (3-11); BUN 13 mg/dL (7-18); Bilirubin, Total 0.5 mg/dL (0.2-1.0); CO2 31.5 mmol/L (21.0-32.0); CREATININE 0.8 mg/dL (0.55-1.02); Calcium 8.7 mg/dL (8.5-10.1); Chloride 102 mmol/L (98-107); Glucose 111 mg/dL (74-106); Potassium 3.6 mmol/L (3.5-5.1); Sodium 139 mmol/L (136-145); Total Protein 6.7 g/dL (6.4-8.2)
[2020-07-24 20:42] LABS: Abs Immature Grans 0.02 10^3/uL (0.0-0.06); Absolute Basophil Count 0.05 10^3/uL (0.0-0.2); Absolute Eosinophil Count 0.08 10^3/uL (0.0-0.7); Absolute Lymphocyte Count 1.73 10^3/uL (1.2-3.4); Absolute Monocyte Count 0.63 10^3/uL (0.1-0.8); Absolute Neutrophil Count 4.17 10^3/uL (1.2-6.7); Basophils % 0.7; Eosinophils % 1.2; HCT 36.7 % (36.0-46.0); HGB 11.9 g/dL (11.2-15.7); Immature Grans % 0.3; Lymphocytes % 25.9; MCH 30.4 pg (27.0-33.0); MCHC 32.4 % (32.0-36.0); MCV 93.9 fL (80-95); MPV 9.7 fL (8.0-11.0); Monocytes % 9.4; Neutrophils % 62.5; Nucleated RBC 0 %; Platelet Count 333 10^3/uL (130-400); RBC 3.91 10^6/uL (3.93-5.22); RDW 13.1 % (11.7-14.6); RDW-SD 44.7 fL; WBC 6.68 10^3/uL (4.4-10.8)
== END 2020-07-24 00:36 | disposition home or self-care (01) ==
LOC: LBN 00:35
PROVIDERS: PCP Nurse Practitioner; Visit Provider Surgery
DX: K80.20 Calculus of gallbladder without cholecystitis without obstruction (principal); K83.8 Other specified diseases of biliary tract; I35.0 Nonrheumatic aortic (valve) stenosis; Z85.3 Personal history of malignant neoplasm of breast; Z80.0 Family history of malignant neoplasm of digestive organs
CPT/HCPCS: 80053; 85025

== ENCOUNTER 2020-08-18 02:08 | Outpatient (CLI) | payer BC, SELFPAY ==
--- NOTE | 2020-08-18 07:12 | DI.MAMMO_ITS ---
EXAM: MG MAMMO SCREENING 60 MIN DUR CLINICAL HISTORY: breast cancer screening,PERSONAL H/O BREAST CA,Z85.3,Z12.39. TECHNIQUE: Bilateral full field digital CC and MLO mammographic images were obtained with 3D tomosyn thesis and utilizing computer aided detection (CAD). COMPARISON: Prior mammograms dating back to 2010, the most recent being 2016.. This patient has had prior right mastectomy for breast cancer. FINDINGS: There are no CAD designations in the left breast. Asymmetric density-nodule towards the upper outer quadrant is unchanged from 2011 and therefore benig n. There are no new spiculated masses nor malignant appearing microcalcification groups. Few benign microcalcifications are again noted centrally. There is no significant architectural distortion nor skin thickening-retraction. IMPRESSION: Stable benign findings. No radiographic evidence of malignancy in the left breast. There has been p revious right mastectomy BI-RADS Category 2 - Benign Findings Breast Density - Category B - Scattered areas of fibroglandular density Breast density Category C or D implies that the patient has dense breast tissue. Dense breast tissue can make it harder to find cancer on a mammogram. Dense breast tissue is also associated with an incr eased risk of breast cancer. This information about the result of the mammogram report was provided to the patient to raise their awareness. Use this report when you speak with the patient about their risks for breast cancer, which includes their family history. At that time, you may recommend additional screening tests (Ultrasoun d or MRI) as these tests may add significant information. A negative radiographic report should not delay biopsy if a dominant or clinically suspicious mass is present. Up to ten percent of cancers are not identified on mammography. A negative report may reinforce clinical impression. Adenosis and dense breasts may obscure an underlying neoplasm. False positive reports average 6 to 10%. Patient will receive a letter notifying them of these results.
== END 2020-08-18 02:28 ==
PROVIDERS: PCP Nurse Practitioner; Visit Provider Nurse Practitioner
DX: Z12.31 Encounter for screening mammogram for malignant neoplasm of breast (principal); Z85.3 Personal history of malignant neoplasm of breast
CPT/HCPCS: 77063; 77067

== ENCOUNTER 2020-08-25 02:43 | Outpatient (CLI) | payer BC, SELFPAY ==
--- NOTE | 2020-08-25 08:15 | DI.MRI_ITS ---
EXAM: MR ABDOMEN WO CLINICAL HISTORY: dilated common bile duct,CHOLELITHIASIS,H/O BREAST CA,K80.20,K83.8,Z85.3 TECHNIQUE: Multiplanar multisequence MRI was performed without contrast. COMPARISON: CT CT ABDOMEN PELVIS W from 07/22/2020 FINDINGS: VISUALIZED LUNG BASES: No pleural effusions evident. There is no ascites evident. LIVER: Liver size is normal. There are no discrete focal hepatic lesions evident. BILIARY: The in gallbladder is now surgically absent. Mild dilatation of the biliary tree. CBD diam eter is 9 millimeters. Minimal prominence of intrahepatic ducts. The pancreatic duct diameter is u pper normal. Mild prominence of intrahepatic ducts. PANCREAS: There is no evidence of pancreatic mass nor dilatation of the pancreatic duct.No peripancre atic fluid collections. SPLEEN: Spleen is not enlarged and there are no intrasplenic lesions.Splenic and portal veins are pat ent ADRENALS: There are no significant adrenal masses. KIDNEYS: No solid renal masses. No hydronephrosis.No cysts evident. ABDOMINAL AORTA: Not enlarged and there is no significant para-aortic adenopathy. ANTERIOR ABDOMINAL WALL/GI: There is no evidence of significant anterior abdominal wall hernia in the field of view of this study.Is no evidence of obvious bowel obstruction. OSSEOUS: There are no lytic osseous lesions in the field of view of this study. IMPRESSION: 1. There to recent CT scan the gallbladder is now surgically absent. CBD diameter is 9 millimeters. There is no obvious calculus nor mass within the CBD and there is no obvious pancreatic head mass. Pancreatic duct is not dilated. 2. 3. DATA REPOSITORY:
== END 2020-08-25 03:03 ==
PROVIDERS: PCP Nurse Practitioner; Visit Provider Surgery
DX: K80.20 Calculus of gallbladder without cholecystitis without obstruction (principal); K83.8 Other specified diseases of biliary tract; Z98.890 Other specified postprocedural states; Z85.3 Personal history of malignant neoplasm of breast; Z80.0 Family history of malignant neoplasm of digestive organs
CPT/HCPCS: 74181

== ENCOUNTER 2020-11-10 03:03 | Outpatient (CLI) | payer BC, SELFPAY ==
[2020-11-10 12:24] LABS: Source Nasal/Nares
[2020-11-10 16:02] LABS: COVID-19 PCR Negative (Negative)
== END 2020-11-10 03:04 | disposition home or self-care (01) ==
LOC: LBO 03:03
PROVIDERS: PCP Nurse Practitioner; Visit Provider Surgery
DX: Z20.822 Contact with and (suspected) exposure to COVID-19 (principal); Z01.818 Encounter for other preprocedural examination
CPT/HCPCS: 87635

== ENCOUNTER 2020-12-03 03:24 | Outpatient (CLI) | payer BC, SELFPAY ==
[2020-12-03 08:35] LABS: Hemoglobin A1C 5.8 % (<5.7)
== END 2020-12-03 03:25 | disposition home or self-care (01) ==
LOC: LBO 03:24
PROVIDERS: PCP Nurse Practitioner; Visit Provider Surgery
DX: Z13.1 Encounter for screening for diabetes mellitus (principal)
CPT/HCPCS: 36415; 80053; 83690; 83036

== ENCOUNTER 2020-12-05 04:07 | Outpatient (CLI) | payer BC, SELFPAY ==
--- NOTE | 2020-12-05 13:20 | DI.RAD_ITS ---
Exam(s) XR CHEST 2V PA LATERAL EXAM: XR CHEST 2V PA LATERAL CLINICAL HISTORY: cough, recent cholecystectomy,R05 TECHNIQUE: COMPARISON: CR CHEST 2 VIEWS PA,LAT from 05/27/2017 FINDINGS: There is a moderate right convex thoracic scoliosis. Heart is not enlarged. There is no pleural eff usion seen. There is a question of increased radiodensity in the lingula which could represent areas of atelectasis or consolidation. Otherwise the lungs appear clear. IMPRESSION: Possible lingular atelectasis and/or consolidation. Appropriate follow-up studies requested. RADIATION DOSE DELIVERED: Total DLP
== END 2020-12-05 04:27 ==
PROVIDERS: PCP Nurse Practitioner; Visit Provider Nurse Practitioner
DX: R05 Cough (principal); Z90.49 Acquired absence of other specified parts of digestive tract
CPT/HCPCS: 71046

== ENCOUNTER 2020-12-25 02:11 | Outpatient (CLI) | payer BC, SELFPAY ==
--- NOTE | 2020-12-25 07:30 | DI.DEXA_ITS ---
Exam(s) XR DEXA BONE DENSITY W/WO ZELDA EXAM: XR DEXA BONE DENSITY W/WO ZELDA CLINICAL HISTORY: osteopenia, M85.80 TECHNIQUE: Routine DEXA evaluation of the lumbar spine, hip, or forearm. COMPARISON: Prior DXA scans including 2005 and 2008 FINDINGS: Performed on a [facility] unit. Lateral image: No compression fracture evident. Lumbar Spine total T-score: -1.7 . Prior reading 2008 was -1.3 Hip total T-score:-2.2. Prior reading in 2008 was -1.3 Independent reading at the femoral neck yields a T-score of -2.7 Forearm total T-score: -2.8 IMPRESSION: Bone mineral density measures in the osteopenia-osteoporosis range. Fracture risk is moderate-high Note: Any spine fracture indicates 5x risk for subsequent spine fracture and 2x risk for subsequent h ip fracture. World Health Organization criteria for BMD interpretation classify patients: Normal...... T- Score at or above -1.0 Osteopenic... T- Score between -1.0 and -2.5 Osteoporosis... T-Score at or below -2.5
== END 2020-12-25 02:31 ==
PROVIDERS: PCP Nurse Practitioner; Visit Provider Nurse Practitioner
DX: M85.80 Other specified disorders of bone density and structure, unspecified site (principal); M81.0 Age-related osteoporosis without current pathological fracture
CPT/HCPCS: 77080

== ENCOUNTER 2021-06-22 01:51 | Outpatient (CLI) | payer MEDICARE, SELFPAY ==
--- NOTE | 2021-06-22 07:19 | DI.US_ITS ---
Exam(s) US THYROID EXAM: US THYROID CLINICAL HISTORY: 6 month f/u thyroid nodule,e04.1. TECHNIQUE: Ultrasound thyroid performed using standard protocol. COMPARISON: US US THYROID from 12/24/2020 FINDINGS: Both thyroid lobes as well as the isthmus appears slightly prominent, as previously described and wit h mildly heterogeneous echotexture. RIGHT THYROID LOBE: Again measures 1.5 cm AP x 2.1 cm wide x 5 cm craniocaudal There 2 nodules in the right lobe. One of these is new. Nodule #1 this is the nodule which was previously present. Size: Measures 1.3 cm craniocaudal by 0.9 cm by 1.0 cm Composition: Solid-2 points Echogenicity: Isoechoic to surrounding parenchyma-1 point Shape: Wider than taller-0 points Margin: Smooth-0 points Echogenic Foci: None-0 points Total Points for this nodule: 3 ACR Ti-Rads Category: TR3 This nodule can be followed. Nodule #2. This is a new nodule which is located more inferiorly Size: Measures 0.8 x 0.4 x 0.6 cm Composition: Solid-2 point Echogenicity: Isoechoic-1 point Shape: Wider than taller- 0 points Margin: Slightly irregular-2 points Echogenic Foci: Punctate echogenic foci noted-3 points Total points for this nodule: 8 ACR Ti-Rads Category: TR5 This nodule is somewhat suspicious but can be followed in 6 months given that it measures less than 1 cm. ISTHMUS: There are no nodules in the isthmus. LEFT THYROID LOBE: Measures 1.7 cm AP x 1.8 wide x 4.8 cm craniocaudal Is again noted to contain a single nodule in the superior aspect of the left lobe. Nodule #1 Size: Measures 1.4 by 0.7 x 1.2 cm Composition: Solid-2 points Echogenicity: Isoechoic-1 points Shape: Wider than taller--0 points Margin: Mfl-bdkgwft-6 points Echogenic Foci: None-0 points Total points for this nodule: 3 ACR Ti-Rads Category: 3 This nodule can be followed. LYMPH NODES: There is no significant adenopathy. IMPRESSION: 1. The 2 previously described nodules (November 2020), 1 in each lobe, remained relatively stable and c an be followed. 2. There is a new nodule in the inferior aspect of the right lobe, as described above, which is TiRad s 5 category. However, it can be followed given that it measures less than 1 cm. Recommend six-alli h follow-up ultrasound 3. There is no significant lymphadenopathy. DATA REPOSITORY:
== END 2021-06-22 02:11 ==
PROVIDERS: PCP Nurse Practitioner; Visit Provider Nurse Practitioner
DX: E04.2 Nontoxic multinodular goiter (principal)
CPT/HCPCS: 76536

== ENCOUNTER → 2021-06-26 08:58 | Outpatient (BNVA) | payer MEDICARE, SELFPAY | PROVIDERS: PCP Nurse Practitioner; Referring Provider Nurse Practitioner; Visit Provider Internal Medicine Cardiovascular Disease | DX: R07.89 Other chest pain (principal); Z82.49 Family history of ischemic heart disease and other diseases of the circulatory system; I35.0 Nonrheumatic aortic (valve) stenosis; I35.1 Nonrheumatic aortic (valve) insufficiency | CPT/HCPCS: 99443; 99213 ==

== ENCOUNTER 2021-07-07 02:35 | Outpatient (CLI) | payer MEDICARE, SELFPAY ==
--- NOTE | 2021-07-07 07:15 | DI.NM_ITS ---
APPROVED REPORT Exam: Exercise Treadmill Patient Location: Out-Patient Room/Bed: Stress Nurse: Nunu Zelaya RN Ordering Provider:MINNIE LOONEY, Contact Number: BMI: 21.28 Baseline Rhythm: Sinus Rhythm Comment: Prolonged QT interval Indications: Other chest pain, aortic stenosis, aortic insufficiency, family h/o ischemic heart disea se, evaluate exercise capacity Medical History Medical History: Aortic stenosis, atypical chest pain, asthma Cardiac Medications: Albuterol sulfate Allergies: Cinoxate, homosalate, octinoxate, oxybenzone, padimateo, titanium, animal dander Cardiac Risk Factors: Asthma, family hx Previous Cardiac Procedures: None Pretest Chest Pain Characteristics: None Exercise History: Physically active Physical Disabilities: None Lung Sounds: Clear to auscultation Heart Sounds: Murmur Stress Test Details Test: Exercise stress testing was performed using a Todd protocol. Nuclear Acquisition: Rest Tc-99m/Stress Tc-99m 1 day Rest Isotope: Tc-99m Sestamibi. Dose: 10.2 Date: 07/07/2021 Injection Time: 0930 Stress Isotope: Tc-99m Sestamibi. Dose: 31.5 Date: 07/07/2021 Injection Time: 1130 HR Resting HR Supine: 69 bpm Max Heart Rate (APMHR): 154.763712 bpm Resting HR Standin bpm Target HR (85% APMHR): 130.336898 bpm Max HR Achieved: 160 bpm % of APMHR: 103.90 Recovery HR: 90 bpm HR response to stress: Normal HR response to stress BP Resting BP Supine: 140/64 mmHg Resting BP Standin/64 mmHg Max BP: 180/72 mmHg Recovery BP: 120/68 mmHg BP response to stress: Normal blood pressure response to stress. ECG Resting ECG: Sinus Rhythm Ectopy: None Comment: Prolonged QT interval Stress ECG: Sinus Tachycardia ST Change: No significant ST segment changes noted Arrhythmia: Rare PVC Recovery ECG: Sinus Rhythm Recovery ST Change: No significant ST segment changes noted Recovery Arrhythmia: Rare PAC Clinical Reason for Termination: Fatigue Stress Symptoms: General Fatigue, Chest pain Exercise duration: 9 min17 sec Highest Stage Reached: Stage 4: 4.2 mph at 16% grade. Exercise capacity: 10.62 METs Burnette Treadmill Score: 8.3 Rate Pressure Product: [id number] Stress ECG Conclusion 1. Resting electrocardiogram showed right axis deviation 2. Patient exercised on the Todd protocol and completed a workload of 10.62 METS, stopping due to fa tigue and chest discomfort 3. Normal heart rate and blood pressure response to exercise. The patient achieved 103% of predicted heart rate for age 4. The electrocardiographic portion of the test was negative for myocardial ischemia 5. There were no significant dysrhythmias 6. See MPI report Burnette Treadmill Score is 8.3 which is Low risk. Stress Test Summary STAGE Time (mins) Speed (mph) Grade (%) HR BP SYMPTOMS METS Supine 69 140/64 Standing 88 124/64 SpO2 97% 1 3 1.7 10 117 138/68 SpO2 93% 4.6 2 6 2.5 12 141 144/72 SpO2 92% 7 3 9 3.4 14 156 180/72 CP L side 2/10, SpO2 92% 10.2 4 12 4.2 16 158 CP L side 2/10, SpO2 92% 12.9 1 min recovery 141 162/70 CP L side 2/10, SpO2 96% 3 min recovery 102 144/72 CP L side 1/10, SpO2 98% 6 min recovery 90 120/68 CP resolved, SpO2 97% MPI Conclusion Normal myocardial perfusion without evidence of ischemia or prior infarction EF 57%, normal wall motion Radiologist Interpretation Radiologist agrees with Unclaimed Property Officer's Interpretation. Radiologist Interpretation by: Jaime Mathis MD Interpretation Date/Time: 07/08/2021 08:17:22
== END 2021-07-07 02:55 ==
PROVIDERS: PCP Nurse Practitioner; Visit Provider Internal Medicine Cardiovascular Disease
DX: I35.0 Nonrheumatic aortic (valve) stenosis (principal); I35.1 Nonrheumatic aortic (valve) insufficiency; R07.89 Other chest pain; Z82.49 Family history of ischemic heart disease and other diseases of the circulatory system
CPT/HCPCS: 78452; 93016; 93018; 93017

== ENCOUNTER 2021-07-21 16:48 | Outpatient (REF) | payer MEDICARE, SELFPAY ==
[2021-07-23 12:03] LABS: COVID-19 RT-PCR UVMMC Result Negative (Negative)
== END 2021-07-21 16:49 | disposition home or self-care (01) ==
LOC: LBN 16:48
PROVIDERS: PCP Nurse Practitioner; Visit Provider Nurse Practitioner
DX: Z20.822 Contact with and (suspected) exposure to COVID-19 (principal)
CPT/HCPCS: U0003

== ENCOUNTER → 2021-07-28 01:52 | Outpatient (CLI) | payer MEDICARE, SELFPAY ==
--- NOTE | 2021-07-28 06:30 | DI.US_ITS ---
APPROVED REPORT EXAM: Comprehensive 2D, Doppler, and color-flow Echocardiogram Patient Location: Out-Patient Radial Drill Press Operator: Quin Mullins RDCS (AE) Indications: Aortic stenosis and regurgitation, Chest pain, Aortic insufficiency Other Information Study Quality: Adequate Conclusion Normal left ventricular wall thickness and chamber size. Estimated ejection fraction is 60%. Wall m otion is normal Normal right ventricular size and systolic function Both atria are normal in size The aortic valve is sclerotic and trileaflet. There is mild to moderate aortic regurgitation. There is moderate aortic stenosis. Peak gradient is 34, mean 21 mmHg. Calculated aortic valve area is 1. 06 cm?? Mitral valve is normal with mild regurgitation Normal tricuspid valve, to mild regurgitation, estimated right ventricular systolic pressure 35 mmHg Normal pulmonic valve with moderate regurgitation Dilated ascending aorta measuring 3.6 cm Wall motion Left Ventricle The left ventricle is normal size. The left ventricular systolic function is normal. The left ventric ular ejection fraction is within the normal range. There is normal left ventricular wall thickness. T here is normal LV segmental wall motion. There is no ventricular septal defect visualized. LVEF is 60 %. Right Ventricle The right ventricle is normal size. The right ventricular systolic function is normal. Atria The left atrium size is normal. The right atrium size is normal. The interatrial septum is intact wit h no evidence for an atrial septal defect. Aortic Valve Aortic valve is calcified. Aortic valve is trileaflet. Moderate aortic stenosis. Peak aortic valve gr adient is 34.8mmHg. Highest mean aortic valve gradient is 20.8mmHg. Calculated ELLA by the continuity equation is 1.06cm2. Mild to moderate aortic regurgitation. Mitral Valve The mitral valve is normal in structure. No evidence of mitral valve stenosis. Mild mitral regurgitat ion. Tricuspid Valve The tricuspid valve is normal in structure. There is no tricuspid valve stenosis. Trace to mild tricu spid regurgitation. Pulmonic Valve The pulmonary valve is normal in structure. There is no pulmonic valvular stenosis. Moderate pulmonic regurgitation. Great Vessels The aortic root is normal in size. The ascending aorta is mildly dilated.3.6 cm Aortic arch is normal in caliber. IVC is normal in size and collapses >50% with inspiration. Pericardium There is no pericardial effusion. 2D Dimensions IVSD d PLAX 0.78 cm F: 0.6-1.0 LV Vol A2C d MOD 90.3 mL LVPW d PLAX 0.82 cm F: 0.6 - 1.0 LV Vol A4C d MOD 79.2 mL LVID d PLAX 5.13 cm F: 3.8 - 5.2 LA vol/ BSA A4C s A-L 24.2 mL/m2 LVDs 3.50 cm F: 2.2 - 3.5 LA Area A4C s MOD 15.96 cm2 Ao Root d 3.04 cm F: 2.7 - 3.3 LV EF A4C MOD 60.7 % RA Area A4C 11.85 cm2 LV EF A2C MOD 62.2 % RA Vol/ BSA A4C s A-L 16.2 mL/m2 LV EF Biplane MOD 60.6 % Ao Asc Diam d 3.60 cm F: 2.3 - 3.1 SV 52.98 mL LV EF Teichholz 59.3 % SV Index 33.30 mL/m2 LVEF (Lentz's) 60.64 % F: 54 - 74 LV Volume 71.13 mL F: 46 - 106 LV Volume Index 44.73 mL/m2 F: 29 - 61 LV Vol Biplane MOD 87.4 mL FS 31.65 % M-Mode TAPSE 2.42 cm (M/F) >1.7 LV Diastology MV E' medial 0.094 (>0.07 m/s) E/A Ratio 1.5 LV E/e MED 8.90 (<14) MV E Vmax 0.84 (0.4-1.3 m/s) MV E' lateral 0.084 (>0.1 m/s) MV A Vmax 0.55 (0.4-1.3 m/s) LV E/e LAT 9.95 (<14) MV E/A Ratio 1.41 MV E/E' medial 8.92 MV E/E' lateral 9.95 Aortic Valve LVOT Area 2.88 cm2 AoV Area Vmax 1.06 cm2 LVOT Vmax 1.09 m/s AoV Area/ BSA (Vmax) 0.67 cm2/m2 LVOT Mean Saul. 0.74 m/s ELLA Mean Saul. 0.97 cm2 LVOT Peak Grad 4.8 mmHg ELLA Mean Saul. Index 0.61 cm2/m2 LVOT Mean Grad 2.5 mmHg AR DT 1992 msec LVOT VTI 0.267 m AR PHT 578 msec LVOT Diam s 1.90 cm AoV Vmax 2.95 m/s Velocity Ratio 0.36 AoV Mean Saul. 2.18 m/s AoV Peak Grad 34.8 mmHg LVOT SV 76.99 mL AoV Mean Grad 20.8 mmHg AoV VTI 0.685 m AoV Area VTI 1.12 cm2 AoV Area/ BSA (VTI) 0.71 cm/m2 Mitral Valve MV DT 198 (160-240 msec) MV PHT 57 msec MV Area PHT 3.84 cm2 MV VTI 0.319 m MV Area VTI 2.41 (4.0-6.0 cm2) Pulmonary Valve PV Vmax 0.64 (0.5-1.5 m/s) RVOT Peak Gr. 1.22 mmHg PV Peak Grad 1.6 mmHg RVOT Mean Gr. 0.60 mmHg PV Mean Grad 1.0 mmHg RVOT VTI 0.125 m PV VTI 0.170 m RVOT Vmax 0.55 m/s Tricuspid Valve TR Peak Grad 16.4 mmHg TR Vmax 2.03 m/s RA Pressure 3.00 mmHg RVSP (TR) 19.5 mmHg
== END ==
PROVIDERS: PCP Nurse Practitioner; Visit Provider Internal Medicine Cardiovascular Disease
DX: I35.0 Nonrheumatic aortic (valve) stenosis (principal); I35.1 Nonrheumatic aortic (valve) insufficiency; R07.89 Other chest pain; Z82.49 Family history of ischemic heart disease and other diseases of the circulatory system
CPT/HCPCS: 93306

== ENCOUNTER → 2021-08-04 12:55 | Outpatient (BNVA) | payer MEDICARE, SELFPAY | PROVIDERS: PCP Nurse Practitioner; Referring Provider Nurse Practitioner; Visit Provider Internal Medicine Cardiovascular Disease | DX: I35.1 Nonrheumatic aortic (valve) insufficiency (principal); I35.0 Nonrheumatic aortic (valve) stenosis; Z82.49 Family history of ischemic heart disease and other diseases of the circulatory system | CPT/HCPCS: 99214; 99213 ==

== ENCOUNTER → 2021-12-31 04:16 | Outpatient (CLI) | payer MEDICARE, SELFPAY ==
--- NOTE | 2021-12-31 07:30 | DI.MAMMO_ITS ---
Exam(s) MG MAMMO SCREENING 60 MIN DUR EXAM: MG MAMMO SCREENING 60 MIN DUR CLINICAL HISTORY: breast cancer screening, HX BREAST CANCER, Z85.3. TECHNIQUE: Bilateral full field digital CC and MLO mammographic images were obtained with 3D tomosyn thesis and utilizing computer aided detection (CAD). COMPARISON: Prior mammograms dating back to 2012 were reviewed, the most recent being July 2020. This patient has had prior right mastectomy. FINDINGS: There has been no significant change in the appearance and distribution of the fibroglandular tissue of the left breast. There are no CAD designations. There are no new spiculated masses nor malignant appearing microcalcification groups. Asymmetric density superolaterally is unchanged from 2013 and therefore benign. There is no significant architectural distortion nor skin thickening-retraction. IMPRESSION: No radiographic evidence of malignancy. Stable benign left breast findings. Previous right mastectomy. BI-RADS Category 2 - Benign Findings Breast Density - Category B - Scattered areas of fibroglandular density Breast density Category C or D implies that the patient has dense breast tissue. Dense breast tissue can make it harder to find cancer on a mammogram. Dense breast tissue is also associated with an incr eased risk of breast cancer. This information about the result of the mammogram report was provided to the patient to raise their awareness. Use this report when you speak with the patient about their risks for breast cancer, which includes their family history. At that time, you may recommend additional screening tests (Ultrasoun d or MRI) as these tests may add significant information. A negative radiographic report should not delay biopsy if a dominant or clinically suspicious mass is present. Up to ten percent of cancers are not identified on mammography. A negative report may reinforce clinical impression. Adenosis and dense breasts may obscure an underlying neoplasm. False positive reports average 6 to 10%. Patient will receive a letter notifying them of these results.
== END ==
PROVIDERS: PCP Nurse Practitioner; Visit Provider Nurse Practitioner
DX: Z12.31 Encounter for screening mammogram for malignant neoplasm of breast (principal); Z85.3 Personal history of malignant neoplasm of breast; Z90.11 Acquired absence of right breast and nipple
CPT/HCPCS: 77063; 77067

== ENCOUNTER → 2022-01-26 01:56 | Outpatient (CLI) | payer MEDICARE, SELFPAY ==
--- NOTE | 2022-01-26 07:15 | DI.US_ITS ---
Exam(s) US THYROID EXAM: US THYROID CLINICAL HISTORY: 6 month follow up,THYROID NODULE,E04.1. TECHNIQUE: Ultrasound thyroid performed using standard protocol. COMPARISON: US US THYROID from 06/22/2021 FINDINGS: ISTHMUS: 6 mm RIGHT LOBE: Size: 5.1 x 1.8 x 1.8 cm Echogenicity: Normal. Vascularity: Normal. Nodules: There are 2 nodules again seen. There has been no change in sonographic appearance of the 2 right thyroid nodules. The TIRADS levels remain the same. No new nodules are seen in the right lo be. LEFT LOBE: Size: 5.4 x 1.8 x 1.7 cm Echogenicity: Normal. Vascularity: Normal. Nodules: The solitary nodule seen in the left lobe is unchanged in size. It remains a TIRADS level 3 nodule. No new thyroid nodules are present. OTHER FINDINGS: None. IMPRESSION: Stable thyroid nodules. DATA REPOSITORY:
== END ==
PROVIDERS: PCP Nurse Practitioner; Visit Provider Nurse Practitioner
DX: E04.1 Nontoxic single thyroid nodule (principal)
CPT/HCPCS: 76536

== ENCOUNTER 2022-06-28 09:42 | Outpatient (CLI) | payer MEDICARE, SELFPAY ==
--- NOTE | 2022-06-28 09:45 | RT.EKG_ITS ---
APPROVED REPORT Exam: Resting ECG Reason for Exam: Chest discomfort Patient Location: O HR:71 bpm ECG Measurements Heart Rate 71 AXIS VT 117 P 71 QRSd 110 QRS 85 QT 424 T 9 QTc 461 Conclusion Sinus rhythm...normal P axis, V-rate 50- 99 Borderline short VT interval...VT int <120mS Left atrial enlargement...P, P'>60mS, <-0.15mV V1 Otherwise unremarkable
== END 2022-06-28 09:43 | disposition home or self-care (01) ==
LOC: DI.CARD 09:54
PROVIDERS: PCP Nurse Practitioner Family; Referring Provider Nurse Practitioner Family; Visit Provider Internal Medicine Cardiovascular Disease
DX: R07.89 Other chest pain (principal); R94.31 Abnormal electrocardiogram [ECG] [EKG]
CPT/HCPCS: 93010

== ENCOUNTER → 2022-06-28 09:42 | Outpatient (BNVA) | payer MEDICARE, SELFPAY | PROVIDERS: PCP Nurse Practitioner Family; Referring Provider Nurse Practitioner Family; Visit Provider Internal Medicine Cardiovascular Disease | DX: R07.89 Other chest pain (principal); I35.1 Nonrheumatic aortic (valve) insufficiency; I35.0 Nonrheumatic aortic (valve) stenosis; Z82.49 Family history of ischemic heart disease and other diseases of the circulatory system | CPT/HCPCS: 93005; 99213 ==

== ENCOUNTER 2022-08-24 17:43 | Outpatient (REF) | payer MEDICARE, SELFPAY | END 2022-08-24 17:44 | disposition home or self-care (01) | LOC: LBN 17:43 | PROVIDERS: PCP Nurse Practitioner Family; Visit Provider Physician Assistant Medical | DX: J02.9 Acute pharyngitis, unspecified (principal) | CPT/HCPCS: 87070 ==

== ENCOUNTER 2022-09-14 01:26 | Outpatient (CLI) | payer MEDICARE, SELFPAY ==
--- NOTE | 2022-09-14 06:30 | DI.US_ITS ---
APPROVED REPORT EXAM: Comprehensive 2D, Doppler, and color-flow Echocardiogram Patient Location: Out-Patient Follow Up Clerk: Quin Mullins RDCS (AE) Indications: Aortic stenosis, Chest pain Other Information Study Quality: Adequate Conclusion Normal left ventricular chamber size and wall thickness. Ejection fraction is 60%. Wall motion is n ormal Normal right ventricular size and systolic function Both atria are normal in size Aortic valve is sclerotic and probably trileaflet. There is moderate aortic regurgitation. There is mild aortic stenosis. Mean gradient is 22, peak 37 mmHg. Calculated aortic valve area is 1.8 cm?? Mildly thickened mitral leaflets with anterior leaflet prolapse. There is mild mitral regurgitation Normal tricuspid valve with mild regurgitation There is moderate to severe pulmonic regurgitation Dilated ascending aorta measuring 3.65 cm Wall motion Left Ventricle The left ventricle is normal size. The left ventricular systolic function is normal. The left ventric ular ejection fraction is within the normal range. There is normal left ventricular wall thickness. T here is normal LV segmental wall motion. There is no ventricular septal defect visualized. LVEF is 60 %. Right Ventricle The right ventricle is normal size. The right ventricular systolic function is normal. Atria The left atrium size is normal. The right atrium size is normal. The interatrial septum is intact wit h no evidence for an atrial septal defect. Aortic Valve The Aortic valve is sclerotic. Aortic valve is probably trileaflet. Mild aortic stenosis. Peak aortic valve gradient is 37.7mmHg. Highest mean aortic valve gradient is 22.4mmHg. Moderate aortic regurgi tation. Mitral Valve Mildly thickened mitral leaflets No evidence of mitral valve stenosis. Mild mitral regurgitation. Mil d prolapse of the anterior mitral valve leaflet. Tricuspid Valve The tricuspid valve is normal in structure. There is no tricuspid valve stenosis. Mild tricuspid regu rgitation. Pulmonic Valve The pulmonary valve is normal in structure. There is no pulmonic valvular stenosis. Moderate to sev ere pulmonic regurgitation. Great Vessels The aortic root is normal in size. The ascending aorta is mildly dilated. Aortic arch is not well vis ualized. IVC is normal in size and collapses >50% with inspiration. Pericardium There is no pericardial effusion. 2D Dimensions IVSD d PLAX 0.75 cm F: 0.6-1.0 LV Vol A2C d MOD 110.6 mL LVPW d PLAX 0.78 cm F: 0.6 - 1.0 LV Vol A4C d MOD 102.6 mL LVID d PLAX 5.10 cm F: 3.8 - 5.2 LA vol/ BSA A4C s A-L 28.7 mL/m2 LVDs 3.40 cm F: 2.2 - 3.5 LA Area A4C s MOD 16.69 cm2 Ao Root d 3.14 cm F: 2.7 - 3.3 LV EF A4C MOD 60.1 % RA Area A4C 11.40 cm2 LV EF A2C MOD 60.4 % RA Vol/ BSA A4C s A-L 16.4 mL/m2 LV EF Biplane MOD 59.0 % Ao Asc Diam d 3.65 cm F: 2.3 - 3.1 SV 64.40 mL LV EF Teichholz 61.2 % SV Index 39.93 mL/m2 LVEF (Lentz's) 58.97 % F: 54 - 74 LV Volume 88.46 mL F: 46 - 106 LV Volume Index 54.94 mL/m2 F: 29 - 61 LV Vol Biplane MOD 109.2 mL FS 32.95 % M-Mode TAPSE 1.92 cm (M/F) >1.7 LV Diastology MV E' medial 0.075 (>0.07 m/s) E/A Ratio 0.8 LV E/e MED 7.85 (<14) MV E Vmax 0.59 (0.4-1.3 m/s) MV E' lateral 0.100 (>0.1 m/s) MV A Vmax 0.70 (0.4-1.3 m/s) LV E/e LAT 5.85 (<14) MV E/A Ratio 0.79 MV E/E' medial 7.87 MV E/E' lateral 5.85 Aortic Valve LVOT Area 2.97 cm2 AoV Area Vmax 1.81 cm2 LVOT Vmax 1.87 m/s AoV Area/ BSA (Vmax) 1.12 cm2/m2 LVOT Mean Saul. 1.34 m/s ELLA Mean Saul. 1.77 cm2 LVOT Peak Grad 13.9 mmHg ELLA Mean Saul. Index 1.10 cm2/m2 LVOT Mean Grad 8.1 mmHg AR DT 1444 msec LVOT VTI 0.460 m AR PHT 419 msec LVOT Diam s 1.90 cm AoV Vmax 3.07 m/s Velocity Ratio 0.61 AoV Mean Saul. 2.25 m/s AoV Peak Grad 37.7 mmHg LVOT SV 136.81 mL AoV Mean Grad 22.4 mmHg AoV VTI 0.694 m AoV Area VTI 1.97 cm2 AoV Area/ BSA (VTI) 1.22 cm/m2 Mitral Valve MV DT 322 (160-240 msec) MV PHT 93 msec MV Area PHT 2.35 cm2 Pulmonary Valve PV Vmax 0.83 (0.5-1.5 m/s) RVOT Peak Gr. 1.77 mmHg PV Peak Grad 2.8 mmHg RVOT Mean Gr. 0.85 mmHg PV Mean Grad 1.2 mmHg RVOT VTI 0.148 m PV VTI 0.165 m RVOT Vmax 0.67 m/s Tricuspid Valve TR Peak Grad 15.1 mmHg TR Vmax 1.94 m/s RA Pressure 3.00 mmHg RVSP (TR) 18.1 mmHg
== END 2022-09-14 01:46 ==
LOC: DI 01:26
PROVIDERS: PCP Nurse Practitioner Family; Visit Provider Internal Medicine Cardiovascular Disease
DX: I35.0 Nonrheumatic aortic (valve) stenosis (principal)
CPT/HCPCS: 93306

== ENCOUNTER → 2022-09-20 13:12 | Outpatient (BNVA) | payer MEDICARE, SELFPAY | PROVIDERS: PCP Nurse Practitioner Family; Referring Provider Nurse Practitioner Family; Visit Provider Internal Medicine Cardiovascular Disease | DX: I35.0 Nonrheumatic aortic (valve) stenosis (principal); I35.1 Nonrheumatic aortic (valve) insufficiency | CPT/HCPCS: 99213 ==

== ENCOUNTER 2022-10-24 07:28 | Emergency (ER) | payer MEDICARE, SELFPAY ==
[2022-10-24 07:32] VITALS: BP 147/66; PULSE 85; RESP 18; TEMP 37.4; O2SAT 97
--- NOTE | 2022-10-24 07:43 | ED.GENADUL_ITS ---
Discharge Plan Disposition Patient Disposition: Home Condition: Good Discharge Details Chief Complaint: Allergic Clinical Impression: Contact dermatitis of face Primary Care Provider: Cass Rogers ED Provider: Marc Nation Home Meds and New Rx's Prescriptions: No Action fluticasone propionate [Flonase Allergy Relief] 50 mcg/actuation spray,suspension 1 spray MANDY DAILY Rx Instructions: administer into each nostril diphenhydramine HCl [Benadryl] 25 mg capsule 25 mg PO TID PRN prednisone 20 mg tablet 40 mg PO DAILY Qty: 10 0RF Zyrtec 10 mg capsule 10 mg PO DAILY multivitamin Tablet 1 tab PO DAILY calcium citrate 200 mg (950 mg) tablet 200 mg PO DAILY alendronate 70 mg tablet 70 mg PO QWEEK Qty: 30 4RF Rx Instructions: take with a full glass of water on an empty stomach, do nt lay down for 30 minutes after taking med albuterol sulfate 90 mcg/actuation HFA aerosol inhaler 2 puff inhalation Q6H PRN (Reason: shortness of breath or wheezing) Qty: 6.7 3RF Discharge Instructions Instructions: Dermatitis (ED) Additional Instructions: At this time you have a localized irritation on your face neck secondary to your recent exposure to the new sunscreen agent. Please take [id number] loratadine 10 mg every 24 hours for the next 5 days. This is okay to take with Zyrtec. You have been given a steroid which will last 2 to 3 days which should help as well. Avoid any new creams. If you notice any worsening of your symptoms, or any new symptoms such as vomiting, diarrhea, fever, chills, shortness of breath, chest pain, numbness, weakness, or fainting , please return immediately to the emergency department for reevaluation. Please follow up with your primary care provider as soon as possible for reassessment and reevaluation. As always, it was a pleasure participating in your medical care to day. Referrals: Cass Rogers NP [Primary Care Provider] - Medical Decision Making This is a pleasant 66-year-old female with a past medical history of breast cancer, psoriatic arthritis, and sensitive skin in general with contact dermatitis to various substances, who presents today for rash on her face. Patient noticed that this weekend/yesterday she utilized a new sunscreen that she had never used before on her face and neck and arms. Last night before bed she noticed some swelling in her face and some mild itchiness on her face and neck. She took Benadryl throughout the night which helped, but noticed this morning that there was slightly worsened mild swelling of her face compared to before and it was still notably itchy. She has had similar symptoms like this in the past to new creams or lotions. She has responded well to antihistamines and steroids. She denies any other complaints of oral lesions, difficulty swallowing or breathing, systemic symptoms of fever chills, ANKUSH inhibitor use, or other new medications. She had been on steroids 1 month ago but has subsequently stopped this. The patient's physical exam demonstrates Somewhat florentino appearance of the skin of the face. No focal hive-like lesions. Mild amount of similar ready appearance skin on the back of the neck. No hives on the arms neck chest or back. No oral lesions. No evidence of angioedema. Negative Nikolsky sign. No large vesicles or bulla. No palpable purpura. No oral lesions. No mucosal lesions. No evidence of severe cellulitis. No evidence of vaccine preventable rash. Symptoms appear clinically consistent at this time with contact dermatitis secondary to a new lotion. We will recommend avoidance of this. Will recommend loratadine on top of her daily Zyrtec for the next few days. We will give a small dose of Decadron 10 mg here for steroid related treatment as well. Discussed red flags for which to return. No current clinical evidence of staph scalded skin syndrome, erythema multiforme, erythema migrans, toxic epidermal necrolysis, Blankenship-Tee syndrome, Kawasaki-like rash, meningococce shameka, pemphigus vulgaris, or necrotizing fasciitis. No other evidence of angioedema or other concerning etiology. I have extensively reviewed the treatment plan and discharge instructions with the patient. I have addressed all patient concerns at this time. The patient was made aware of what symptoms to monitor for that would warrant a return to the emergency department. Discussed the plan with the patient, they demonstrate verbal understanding and agreement with our assessment and plan at this time. The documentation in this chart was dictated using [employer] dictation software. Please excuse any dictation errors. HPI General Date/Time Provider Initiated Documentation: 10/24/22 07:42 . HPI Narrative: This is a pleasant 66-year-old female with a past medical history of breast cancer, psoriatic arthritis, and sensitive skin in general with contact dermatitis to various substances, who presents today for rash on her face. Patient noticed that this weekend/yesterday she utilized a new sunscreen that she had never used before on her face and neck and arms. Last night before bed she noticed some swelling in her face and some mild itchiness on her face and neck. She took Benadryl throughout the night which helped, but noticed this morning that there was slightly worsened mild swelling of her face compared to before and it was still notably itchy. She has had similar symptoms like this in the past to new creams or lotions. She has responded well to antihistamines and steroids. She denies any other complaints of oral lesions, difficulty swallowing or breathing, systemic symptoms of fever chills, ANKUSH inhibitor use, or other new medications. She had been on steroids 1 month ago but has subsequently stopped this. Related Data Home Medications Medication Instructions Recorded Confirmed cetirizine 10 mg capsule (Zyrtec) 10 mg PO DAILY 11/17/18 10/24/22 fluticasone propionate 50 1 spray intranasal DAILY 10/12/19 10/24/22 mcg/actuation nasal spray,suspension (Flonase Allergy Relief) albuterol sulfate 90 mcg/actuation 2 puff inhalation Q6H PRN 05/11/22 10/24/22 aerosol inhaler shortness of breath or wheezing #6.7 grams alendronate 70 mg tablet 70 mg PO QWEEK #30 tabs 05/11/22 10/24/22 calcium citrate 200 mg (950 mg) 200 mg PO DAILY 09/20/22 10/24/22 tablet multivitamin 1 tab PO DAILY 09/20/22 10/24/22 diphenhydramine HCl 25 mg capsule 25 mg PO TID PRN 09/24/22 10/24/22 (Benadryl) prednisone 20 mg tablet 40 mg PO DAILY #10 tabs 09/24/22 10/24/22 Previous Rx's Medication Instructions Recorded albuterol sulfate 90 mcg/actuation 2 puff inhalation Q6H PRN 05/11/22 aerosol inhaler shortness of breath or wheezing #6.7 grams alendronate 70 mg tablet 70 mg PO QWEEK #30 tabs 05/11/22 prednisone 20 mg tablet 40 mg PO DAILY #10 tabs 09/24/22 Allergies Allergy/AdvReac Type Severity Reaction Status Date / Time cinoxate Allergy Mild Verified 10/24/22 07:37 homosalate Allergy Mild Verified 10/24/22 07:37 octinoxate Allergy Mild Verified 10/24/22 07:37 oxybenzone Allergy Mild Verified 10/24/22 07:37 padimate O Allergy Mild FROM Verified 10/24/22 07:37 SUNBLOCK titanium Allergy Mild Verified 10/24/22 07:37 ANIMAL DANDER Allergy Mild CONGESTION Uncoded 10/24/22 07:37 General Stated Complaint: Allergic MARAH: 3 Review of Systems All systems reviewed & are unremarkable except as noted in HPI and below PFSH All Active Problems Contact dermatitis of face (Acute) Chest pain (Acute) Left knee pain (Acute) Prediabetes (Acute) Osteoporosis (Chronic) Skin lesion (Acute) Thyroid nodule (Acute) 11/2020- rec repeat US in 6 months 06/2021- 2 on right, one left- rec US 6 months Aortic stenosis (Chronic) followed by cardiology [id number] , EF-60% Rhinitis (Acute) Asthma (Acute) Non-toxic multinodular goiter (Acute 12/05/12) Psoriatic arthritis (Acute 11/11/17) Minimal symptoms not seeing rheum regularly Medical History Aortic insufficiency Atrophic vaginitis (12/17/11) Cholelithiasis 11/19- cholecystectomy [facility] Family history of GI malignancy colon cancer in mother Family history of ischemic heart disease Hx of breast cancer (12/17/11) s/p tamoxifen [id number], per pt recollection right breast Idiopathic scoliosis Pleural effusion Skin tag of vaginal mucosa (02/23/16) seen on speculum exam, friable. Surgical History Breast, Lumpectomy 1989,10/31/02 Breast, Mastectomy (12/03/02) Dr Polo Lopez Endometrial Biopsy 09/06/14; [facility] History of gynecological procedure History of mastectomy Status post breast lumpectomy Family History Mother , 43 Colon cancer Liver cancer Father , 80 Bile duct cancer Sister Heart disease Heart-lung transplant recipient Brother Lupus Prostate cancer Stroke Heart disease stent to heart Brother , 60 Heart disease of massive PA at age 60, very active runner, autopsy showed Aorta with narrowing, CAD and valve disease Maternal Grandfather , 80s Skin cancer Leukemia Paternal Grandfather , 65 Heart disease Maternal Grandmother , 96 Stroke Paternal Grandmother , 97 No problems noted. Maternal Aunt Breast cancer Pancreatic cancer Son No problems noted. Son No problems noted. Daughter No problems noted. Social History Smoking/Tobacco Use Status: Never Second Hand Exposure: Yes Smoking risk assessment performed?: Yes Alcohol Intake: current Alcohol Intake frequency: a few times a week Alcohol type: beer and wine Drug use: Never Substance use type: does not use Counseling given: No Caregiver/Support person: No Household members: spouse Housing: house Communication Needs: Hard of Hearing Do you need help understanding health information?: Rarely Pets and animals: No Sexually active: No Do you think of yourself as: straight/heterosexual Current gender identity: female What is your relationship status?: How often do you talk on the phone with friends or family?: three or more times per week How often do you get together with friends or relatives?: three or more times per week How often do you attend jain or yazidism services?: 4 or more times per year Do you belong to any clubs or organized social groups?: no Panel score (0-1 are the most socially isolated patients): 3 What type of physical activity do you participate in: walking and irregular exercise Duration: decline to answer Frequency: 5-6 times per week Melvina/Hindu: Alevism Special melvina needs: No Seatbelt use: always Helmet use: Yes Helmet use: always Drive intox or ride w/intox 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 3.ENT: Atraumatic external nose and ears. Moist MM. Neck: Symmetric, trachea midline, No thyromegaly. 4.CVS: +S1/S2, No murmurs or gallops. Peripheral pulses 2+ and equal in all ex tremities. Brisk capillary refill in all extremities. 5.RESP: Unlabored respiratory effort. Clear to auscultation bilaterally. No wheezes rales or rhonchi 6.GI: Soft, Nontender/Nondistended, No hepatosplenomegaly. No guarding or rebound. 7.MSK: Normocephalic/Atraumatic, Extremities w/o deformity or ttp No cyanosis or clubbing, Normal movement of all extremities 8.Skin: Somewhat florentino appearance of the skin of the face. No focal hive-like lesions. Mild amount of similar ready appearance skin on the back of the neck. No hives on the arms neck chest or back. No oral lesions. No evidence of angioedema. Negative Nikolsky sign. No large vesicles or bulla. No palpable purpura. No oral lesions. No mucosal lesions. No evidence of severe cellulitis. No evidence of vaccine preventable rash. 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 Sensation grossly intact, no focal neurologic deficits. 10.Psych: (AAO) x3. Appropriate mood and affect Course Vital Signs Vital signs: Vital Signs Temperature 37.4 C 10/24/22 07:32 Pulse 85 10/24/22 07:32 Respiratory Rate 18 10/24/22 07:32 Blood Pressure 147/66 H 10/24/22 07:32 Pulse Oximetry 97 10/24/22 07:32 Temperature 37.4 C 10/24/22 07:32 Temperature Source Temporal Artery Scan 10/24/22 07:32 Pulse 85 10/24/22 07:32 Respiratory Rate 18 10/24/22 07:32 Respiratory Effort Normal, Non-Labored 10/24/22 07:41 Blood Pressure 147/66 H 10/24/22 07:32 Blood Pressure Position Sitting 10/24/22 07:32 Pulse Oximetry 97 10/24/22 07:32 Oxygen Delivery Method Room Air 10/24/22 07:32 Oxygen Flow Rate 0 10/24/22 07:32 PAWSS Have you Been Recently Intoxicated or Drunk Within the Last 30 days?: No Have you Ever Experienced Previous Episodes of Alcohol Withdrawal?: No Have you ever Experienced Withdrawal Seizures?: No Have you ever Experienced Delirium Tremens(DT)s?: No Have you ever undergone Alcohol Rehabilitation Treatment (i.e, inpt ot outpatient treatment programs)?: No Have you ever Experienced Blackouts?: No Have you ever Combined Alcohol with other Downers within the last 90 days?: No Have you ever Combined Alcohol with any other Substance of Abuse during the last 90 days?: No Positive Blood Alcohol level on Presentation? [PCS.BAL]: No Evidence of Increased Autonomic Activity (i.e. HR>120, tremor, sweating, agitation, nausea)?: No Result: 0
[2022-10-24] MEDS: Dexamethasone 4 MG TAB 10 MG PO (07:52)
[2022-10-24] MEDS: Loratidine 10 MG TAB PO (07:52)
== END 2022-10-24 08:03 | disposition home or self-care (01) ==
PROVIDERS: Emergency Provider Student in an Organized Health Care Education/Training Program; PCP Nurse Practitioner Family
DX: L24.3 Irritant contact dermatitis due to cosmetics (principal); L40.50 Arthropathic psoriasis, unspecified
CPT/HCPCS: 99283; J8540

== ENCOUNTER 2022-12-06 02:48 | Outpatient (CLI) | payer MEDICARE, SELFPAY ==
[2022-12-06 12:29] LABS: ESR 11 mm/hr (0-30)
[2022-12-06 12:43] LABS: Uric Acid 2.3 mg/dL (2.6-6.0)
[2022-12-06 21:53] LABS: Rheumatoid Factor <8.6 IU/mL (<12.0)
[2022-12-08 14:44] LABS: ANA Interpretation Positive (Negative)
== END 2022-12-06 02:49 | disposition home or self-care (01) ==
LOC: LOS 02:49
PROVIDERS: PCP Nurse Practitioner Family; Visit Provider Family Medicine
DX: L98.8 Other specified disorders of the skin and subcutaneous tissue (principal)
CPT/HCPCS: 36415; 85652; 84550; 86038; 86431

== ENCOUNTER 2022-12-31 03:31 | Outpatient (CLI) | payer MEDICARE, SELFPAY ==
[2022-12-31 10:27] LABS: Abs Immature Grans 0.01 10^3/uL (0.0-0.06); Absolute Basophil Count 0.06 10^3/uL (0.0-0.2); Absolute Eosinophil Count 0.13 10^3/uL (0.0-0.7); Absolute Lymphocyte Count 1.63 10^3/uL (1.2-3.4); Absolute Neutrophil Count 3.04 10^3/uL (1.2-6.7); Basophils % 1.1; Eosinophils % 2.3; HCT 40.8 % (36.0-46.0); HGB 13.6 g/dL (11.2-15.7); Immature Grans % 0.2; Lymphocytes % 29.3; MCH 30.6 pg (27.0-33.0); MCHC 33.3 % (32.0-36.0); MCV 92 fL (80-95); MPV 8.8 fL (8.0-11.0); Monocytes % 12.6; Neutrophils % 54.5; Platelet Count 353 10^3/uL (130-400); RBC 4.45 10^6/uL (3.93-5.22); RDW 12.5 % (11.7-14.6); RDW-SD 41.9 fL; WBC 5.57 10^3/uL (4.4-10.8)
[2022-12-31 10:35] LABS: Bilirubin Negative (Negative); Blood Negative (Negative); Clarity Clear (Clear); Glucose Negative (Negative); Ketones Negative (Negative); Leukocyte Esterase Negative (Negative); Nitrite Negative (Negative); Specific Gravity 1.015 (1.005-1.025); Urobilinogen 0.2 mg/dL (Up to 0.2)
[2022-12-31 11:06] LABS: Anion Gap 8.4 mmol/L (3-11); BUN 14 mg/dL (7-18); CO2 29.6 mmol/L (21.0-32.0); CREATININE 0.9 mg/dL (0.55-1.02); Calcium 8.8 mg/dL (8.5-10.1); Chloride 102 mmol/L (98-107); Estimated GFR 69.64 (mL/min/1.73m2); Glucose 96 mg/dL (74-106); Potassium 3.8 mmol/L (3.5-5.1); Sodium 140 mmol/L (136-145)
[2023-01-04 14:21] LABS: dsDNA Ab, IgG 55.1 IU/mL (<30.0)
[2023-01-04 14:29] LABS: Albumin 60.4 % (55.8-66.1); Albumin g/dL 4.3 g/dL (3.6-5.2); Comment (See Note); Total Protein 7.2 g/dL (6.3-8.2)
[2023-01-04 18:52] LABS: Complement, Total 62 U/mL (30-75)
[2023-01-04 19:19] LABS: Phospholipid Ab, IgG <9.4 GPL; Phospholipid Ab, IgM 14.8 MPL
[2023-02-10 07:53] LABS: Immunotyping, Serum (See Note)
== END 2022-12-31 03:32 | disposition home or self-care (01) ==
LOC: LBO 03:31
PROVIDERS: PCP Nurse Practitioner Family; Visit Provider Family Medicine
DX: R21 Rash and other nonspecific skin eruption (principal); R76.8 Other specified abnormal immunological findings in serum; R30.0 Dysuria; I10 Essential (primary) hypertension
CPT/HCPCS: 36415; 80048; 86147; 81003; 84165; 85025; 86162; 86225; 86320

== ENCOUNTER → 2023-01-28 02:29 | Outpatient (CLI) | payer MEDICARE, SELFPAY ==
--- NOTE | 2023-01-28 07:30 | DI.US_ITS ---
Exam(s) US THYROID EXAM: US THYROID CLINICAL HISTORY: follow up on thyroid nodule,e04.1. TECHNIQUE: Ultrasound thyroid performed using standard protocol. COMPARISON: US US THYROID from 01/26/2022 FINDINGS: ISTHMUS: 7 mm RIGHT LOBE: Size: 4.7 x 1.8 x 2.2 cm Echogenicity: Normal. Vascularity: Normal. Nodules: The solid isoechoic nodule in the right lobe measures 1.5 x 0.8 x 0.8 cm. This compares to 1.4 x 0.9 x 0.8 cm on the prior examination. It is consistent with a TI rads level 3 nodule. Due to its size, follow-up is recommended. The 2nd nodule seen in the right lobe is not visualized on the current examination. LEFT LOBE: Size: 4.8 x 1.9 x 1.7 cm Echogenicity: Normal. Vascularity: Normal. Nodules: The left thyroid nodule is not seen on the current examination. OTHER FINDINGS: None. IMPRESSION: Stable TI rads level 3 right thyroid nodule. DATA REPOSITORY:
== END ==
PROVIDERS: PCP Nurse Practitioner Family; Visit Provider Nurse Practitioner Family
DX: E04.1 Nontoxic single thyroid nodule (principal)
CPT/HCPCS: 76536

== ENCOUNTER → 2023-02-16 02:39 | Outpatient (CLI) | payer MEDICARE, SELFPAY ==
--- NOTE | 2023-02-16 07:00 | DI.MAMMO_ITS ---
Exam(s) MG MAMMO SCREENING 60 MIN DUR EXAM: MG MAMMO SCREENING 60 MIN DUR CLINICAL HISTORY: breast cancer screening,personal h/o breast ca,z85.3,z12.39 TECHNIQUE: Bilateral full field digital CC and MLO mammographic images were obtained with 3D tomosyn thesis and utilizing computer aided detection (CAD). COMPARISON: Available for comparison. FINDINGS: The patient is status post right mastectomy. Masses/Architectural Distortion: None seen. Microcalcifications: No suspicious pleomorphic-type are seen. Skin Thickening/Nipple Retraction: None. IMPRESSION: 1. No significant interval change with no specific features of malignancy noted. 2. Unless there is more urgent need, screening mammography is recommended, as per [place] [employer] guidelines. BI-RADS Category 1 - Negative Breast Density - Category B - Scattered areas of fibroglandular density Breast density category C or D implies that the patient has dense breast tissue. Dense breast tissue is very common and is not abnormal but dense breast tissue can make it harder to find cancer on a ma mmogram. Also, dense breast tissue may increase their breast cancer risk. This information about the result of the mammogram report was provided to the patient to raise their awareness. Use this report when you speak with the patient about their risks for breast cancer, which includes their family hist ory. At that time, you may recommend for more screening tests (Ultrasound or MRI) as they might be us eful based on their risk. A negative radiographic report should not delay biopsy if a dominant or clinically suspicious mass is present. Up to ten percent of cancers are not identified on mammography. A negative report may reinforce clinical impression. Adenosis and dense breasts may obscure an underlying neoplasm. False positive reports average 6 to 10%. Patient will receive a letter notifying them of these results.
== END ==
PROVIDERS: PCP Nurse Practitioner Family; Visit Provider Nurse Practitioner Family
DX: Z12.31 Encounter for screening mammogram for malignant neoplasm of breast (principal); Z85.3 Personal history of malignant neoplasm of breast; R92.323 Mammographic fibroglandular density, bilateral breasts
CPT/HCPCS: 77063; 77067

== ENCOUNTER 2023-05-05 17:24 | Emergency (ER) | payer MEDICARE, SELFPAY ==
[2023-05-05] VITALS (21 sets, daily range): BP systolic 89–136; BP diastolic 38–67; PULSE 94–115; RESP 15–29; TEMP 36.5; O2SAT 89–99
--- NOTE | 2023-05-05 17:45 | DI.RAD_ITS ---
Exam(s) XR CHEST 2V PA LATERAL EXAM: XR CHEST 2V PA LATERAL CLINICAL HISTORY: productive cough, flu positive TECHNIQUE: 2D digital imaging was performed. COMPARISON: CR XR CHEST 2V PA LATERAL from 12/05/[address] CHEST WO from 12/08/2020 FINDINGS: HEART: Mildly enlarged. Aorta: Not dilated. PULMONARY VASCULATURE: Normal. LUNGS: Lingular infiltrate. Patchy densities also noted in right leg middle lobe. PLEURAL SPACE: No pleural effusion or pneumothorax. BONE:Scoliosis. Soft tissues: Unremarkable. IMPRESSION: Lingular and right middle lobe infiltrates. DATA REPOSITORY: RADIATION DOSE DELIVERED:
--- NOTE | 2023-05-05 17:54 | ED.GENADUL_ITS ---
HPI General Stated Complaint: RespSymp MARAH: 3 Date/Time Provider Initiated Documentation: 05/05/23 17:37. HPI Narrative: 67-year-old female history of asthma presents with fevers productive cough for the last several weeks, was initially treated with prednisone and doxycycline earlier last month, recently diagnosed with influenza. Home O2 as low as 89% on pulse oximeter Related Data Home Medications Medication Instructions Recorded Confirmed cetirizine 10 mg capsule (Zyrtec) 10 mg PO DAILY 11/17/18 05/05/23 albuterol sulfate 90 mcg/actuation 2 puff inhalation Q6H PRN 05/11/22 05/05/23 aerosol inhaler shortness of breath or wheezing #6.7 grams alendronate 70 mg tablet 70 mg PO QWEEK #30 tabs 05/11/22 05/05/23 multivitamin 1 tab PO DAILY 09/20/22 05/05/23 calcium citrate 200 mg (950 mg) 600 mg PO BID 12/07/22 05/05/23 tablet fluticasone propionate 50 1 spray intranasal DAILY 04/01/23 05/05/23 mcg/actuation nasal spray,suspension (Flonase Allergy Relief) amoxicillin 875 mg-potassium 1 tab PO BID 7 days #14 tabs 05/05/23 clavulanate 125 mg tablet azithromycin 250 mg tablet 250 mg PO DAILY 4 days #4 tabs 05/05/23 Previous Rx's Medication Instructions Recorded albuterol sulfate 90 mcg/actuation 2 puff inhalation Q6H PRN 05/11/22 aerosol inhaler shortness of breath or wheezing #6.7 grams alendronate 70 mg tablet 70 mg PO QWEEK #30 tabs 05/11/22 amoxicillin 875 mg-potassium 1 tab PO BID 7 days #14 tabs 05/05/23 clavulanate 125 mg tablet azithromycin 250 mg tablet 250 mg PO DAILY 4 days #4 tabs 05/05/23 Allergies Allergy/AdvReac Type Severity Reaction Status Date / Time cinoxate Allergy Mild Verified 05/05/23 17:34 homosalate Allergy Mild Verified 05/05/23 17:34 octinoxate Allergy Mild Verified 05/05/23 17:34 oxybenzone Allergy Mild Verified 05/05/23 17:34 padimate O Allergy Mild FROM Verified 05/05/23 17:34 SUNBLOCK titanium Allergy Mild Verified 05/05/23 17:34 ANIMAL DANDER Allergy Mild CONGESTION Uncoded 05/05/23 17:34 Review of Systems Narrative: Review of Systems Constitutional: Fever Eyes: negative ENT: negative Cardiovascular: negative Respiratory: Cough Gastrointestinal: negative : negative Musculoskeletal: negative Skin: negative Neurologic: negative Psych: negative PFSH All Active Problems (Updated 05/05/23 @ 19:34 by Augustin Rico MD) Pneumonia (Acute) Elevated antinuclear antibody (BOB) level (Chronic) Elevated double-stranded DNA Contact dermatitis (Acute) Chest pain (Acute) Left knee pain (Acute) Prediabetes (Acute) Osteoporosis (Chronic) Skin lesion (Acute) Thyroid nodule (Acute) 11/2020- rec repeat US in 6 months 06/2021- 2 on right, one left- rec US 6 months Aortic stenosis (Chronic) followed by cardiology [id number] , EF-60% Rhinitis (Acute) Asthma (Acute) Non-toxic multinodular goiter (Acute 12/05/12) Psoriatic arthritis (Acute 11/11/17) Minimal symptoms not seeing rheum regularly Medical History Family history of ischemic heart disease Cholelithiasis 11/19- cholecystectomy [facility] Aortic insufficiency Pleural effusion Atrophic vaginitis (12/17/11) Family history of GI malignancy colon cancer in mother Hx of breast cancer (12/17/11) s/p tamoxifen [id number], per pt recollection right breast Idiopathic scoliosis Skin tag of vaginal mucosa (02/23/16) seen on speculum exam, friable. Surgical History History of gynecological procedure History of mastectomy Status post breast lumpectomy Endometrial Biopsy 09/06/14; [facility] Breast, Mastectomy (12/03/02) Dr Polo Lopez Breast, Lumpectomy 1989,10/31/02 Family History Mother , 43 Colon cancer Liver cancer Father , 80 Bile duct cancer Sister Heart disease Heart-lung transplant recipient Brother Lupus Prostate cancer Stroke Heart disease stent to heart Brother , 60 Heart disease of massive CA at age 60, very active runner, autopsy showed Aorta with narrowing, CAD and valve disease Maternal Grandfather , 80s Skin cancer Leukemia Paternal Grandfather , 65 Heart disease Maternal Grandmother , 96 Stroke Paternal Grandmother , 97 No problems noted. Maternal Aunt Breast cancer Pancreatic cancer Son No problems noted. Son No problems noted. Daughter No problems noted. Social History Smoking/Tobacco Use Status: Never Second Hand Exposure: Yes Smoking risk assessment performed?: Yes Alcohol Intake: current Alcohol Intake frequency: a few times a week Alcohol type: beer and wine Drug use: Never Substance use type: does not use Counseling given: No Caregiver/Support person: No Household members: spouse Housing: house Communication Needs: Hard of Hearing Do you need help understanding health information?: Rarely Pets and animals: No Sexually active: No Do you think of yourself as: straight/heterosexual Current gender identity: female What is your relationship status?: How often do you talk on the phone with friends or family?: three or more times per week How often do you get together with friends or relatives?: three or more times per week How often do you attend taoism or sikh services?: 4 or more times per year Do you belong to any clubs or organized social groups?: no Panel score (0-1 are the most socially isolated patients): 3 What type of physical activity do you participate in: walking and irregular exercise Duration: decline to answer Frequency: 5-6 times per week Melvina/Baptist: Sabianism Special melvina needs: No Seatbelt use: always Helmet use: Yes Helmet use: always Drive intox or ride w/intox local intermodal truck driver: No Do you feel safe at home: Yes Do you feel safe in your relationship?: Yes Exam Narrative Exam Narrative: Physical Examination General: alert, awake, cooperative, resting comfortably, no acute distress HEENT: normocephalic, atraumatic; PERRL, EOM intact, conjunctiva normal; no nasal discharge; moist mucous membranes, oral and pharyngeal mucosa normal, tolerating secretions Neck: supple, trachea midline; full ROM Chest: normal to inspection Respiratory: normal respiratory effort, speaking in full sentences, clear to auscultation, no wheezing, rales or rhonchi Cardiac: regular rate, regular rhythm, S1S2 intact, no murmurs rubs or gallops GI: abdomen soft, non-tender, non-distended; no palpable mass or hepatosplenomegaly Skin: no lesions, rashes or trauma appreciated Neuro: AAOx3, normal speech, moving all extremities Psych: Appropriate mood and affect Course Vital Signs Vital signs: Vital Signs Temperature 36.5 C 05/05/23 17:31 Pulse 99 H 05/05/23 17:31 Respiratory Rate 18 05/05/23 17:31 Blood Pressure 130/54 L 05/05/23 17:31 Pulse Oximetry 94 05/05/23 17:31 Temperature 36.5 C 05/05/23 17:31 Temperature Source Skin 05/05/23 17:31 Pulse 99 H 05/05/23 17:31 Respiratory Rate 18 05/05/23 17:31 Respiratory Effort Normal 05/05/23 17:41 Respiratory Depth Normal 05/05/23 17:41 Blood Pressure 130/54 L 05/05/23 17:31 Blood Pressure Position Sitting 05/05/23 17:31 Pulse Oximetry 94 05/05/23 17:31 Oxygen Delivery Method Room Air 05/05/23 17:31 Oxygen Flow Rate 0 05/05/23 17:31 Pain Level 0 05/05/23 17:31 Lab/Test Results Lab/Test Results: 05/05/23 17:50 Blood Blood Culture - Pending 05/05/23 17:50 Blood Blood Culture - Pending Medical Decision Making 67-year-old female recently diagnosed with influenza, recent course of steroid and doxycycline presents with productive cough fever hypoxia at home, persistent cough for the last several weeks, normotensive for line tachycardic here afebrile, normoxic saturating 94% on room air. Lungs largely clear possible slight expiratory wheeze bilaterally. Likely symptomatic influenza versus super imposed bacterial pneumonia lower suspicion for ACS PE CHF aortic pathology pneumothorax or pleural effusion. Will obtain screening labs, x-ray, nebs steroids, close reassessment of symptoms disposition pending reassessment and results. 19: 33 evidence of right middle lobe pneumonia, patient started on Augmentin and azithromycin, doing better after nebs and dexamethasone, maintaining oxygen satu ration 92 to 96% on room air. Home care instructions and return precautions given for any worsening symptoms. Quality:[facility] Health Related Social Needs: No Data to Display Discharge Plan Disposition Patient Disposition: Home Condition: Improving Discharge Details Clinical Impression: Pneumonia Primary Care Provider: Cass Rogers ED Provider: Augustin Rico Home Meds and New Rx's Prescriptions: New amoxicillin-pot clavulanate 875-125 mg tablet 1 tab PO BID 7 Days Qty: 14 0RF azithromycin 250 mg tablet 250 mg PO DAILY 4 Days Qty: 4 0RF Rx Instructions: start on day 2 of therapy No Action fluticasone propionate [Flonase Allergy Relief] 50 mcg/actuation spray,suspension 1 spray intranasal DAILY Rx Instructions: administer into each nostril Zyrtec 10 mg capsule 10 mg PO DAILY multivitamin Tablet 1 tab PO DAILY calcium citrate 200 mg (950 mg) tablet 600 mg PO BID alendronate 70 mg tablet 70 mg PO QWEEK Qty: 30 4RF Rx Instructions: take with a full glass of water on an empty stomach, do nt lay down for 30 minutes after taking med albuterol sulfate 90 mcg/actuation HFA aerosol inhaler 2 puff inhalation Q6H PRN (Reason: shortness of breath or wheezing) Qty: 6.7 3RF Discharge Instructions Instructions: Pneumonia (ED) Additional Instructions: Please take medications as prescribed. Consider using your albuterol inhaler every 4-6 hours as needed. Please return to the emergency department for any worsening symptoms. Otherwise follow-up closely with your primary care physician.
[2023-05-05] MEDS: Albuterol/Ipratropium 3 ML UPD VIAL UPD ×2 (17:59→19:04)
[2023-05-05] MEDS: Normal Saline 1,000 ML 1000 ML IV (17:59)
[2023-05-05] MEDS: Dexamethasone 10 MG/ML VIAL IVP (17:59)
[2023-05-05 18:13] LABS: Abs Immature Grans 0.07 10^3/uL (0.0-0.06); Absolute Eosinophil Count 2.34 10^3/uL (0.0-0.7); HGB 11.7 g/dL (11.2-15.7); MCH 29.4 pg (27.0-33.0); MCHC 33.4 % (32.0-36.0); MCV 88 fL (80-95); MPV 9.3 fL (8.0-11.0); Platelet Count 417 10^3/uL (130-400); RBC 3.98 10^6/uL (3.93-5.22); RDW 12.3 % (11.7-14.6); RDW-SD 39.8 fL; WBC 17.97 10^3/uL (4.4-10.8)
[2023-05-05 18:31] LABS: ALT 24 U/L (14-59); AST 23 U/L (15-37); Albumin 3.1 g/dL (3.4-5.0); Alkaline Phosphatase 55 U/L (46-116); Anion Gap 9.1 mmol/L (3-11); BUN 8 mg/dL (7-18); Bilirubin, Total 0.8 mg/dL (0.2-1.0); CO2 26.9 mmol/L (21.0-32.0); CREATININE 0.8 mg/dL (0.55-1.02); Calcium 8.5 mg/dL (8.5-10.1); Chloride 96 mmol/L (98-107); Estimated GFR 80.21 (mL/min/1.73m2); Glucose 123 mg/dL (74-106); Potassium 3.4 mmol/L (3.5-5.1); Sodium 132 mmol/L (136-145); Total Protein 7.2 g/dL (6.4-8.2)
[2023-05-05] MEDS: Amoxicillin 875/Clav. 125 TAB PO (18:36)
[2023-05-05] MEDS: Azithromycin 250 MG TAB 500 MG PO (18:36)
[2023-05-05 18:37] LABS: Absolute Lymphocyte Count 1.26 10^3/uL (1.2-3.4); Absolute Monocyte Count 1.62 10^3/uL (0.1-0.8); Absolute Neutrophil Count 12.76 10^3/uL (1.2-6.7)
[2023-05-05 18:38] LABS: Diff Comment Manual Differential; RBC Morphology Normal
== END 2023-05-05 19:56 | disposition home or self-care (01) ==
PROVIDERS: Emergency Provider Emergency Medicine; PCP Nurse Practitioner Family
DX: J18.9 Pneumonia, unspecified organism (principal); J45.909 Unspecified asthma, uncomplicated
CPT/HCPCS: 36415; 80053; 87040; 94640; 96361; 96374; 99284; 71046; 85025; J1100; J7620

== ENCOUNTER → 2023-05-31 01:29 | Outpatient (CLI) | payer MEDICARE, SELFPAY ==
--- NOTE | 2023-05-31 06:30 | DI.CT_ITS ---
Exam(s) CT CHEST W EXAM: CT CHEST W CLINICAL HISTORY: continued cough,low grade fevers,r05.9. TECHNIQUE: Multi planar reconstructions were performed. CONTRAST MATERIAL: Omnipaque 350; 75 cc COMPARISON: CT CT CHEST WO from 12/08/2020 FINDINGS: CHEST: Previous right mastectomy again noted. LUNGS: There is now significant prominent area of infiltrate in the right middle lobe, significantly increased from previous . mild infiltrate is noted medially in the right upper lobe. There is mild i nfiltrate in the right lower lobe. No pleural effusion. In the opposite-left lung there is some unchanged infiltrate in the lingular segment. Is a subtle sm all nodular infiltrates noted in the basal segments of the left lower lobe. No left pleural effusion . MEDIASTINUM: The esophagus contains fluid and food material which brings mind the possibility of aspi ration. There is no obvious hiatal hernia. There is no hilar nor mediastinal adenopathy. Mild subc arinal enlarged lymph nodes unchanged from previous.Partially visualized thyroid unremarkable. CARDIAC: Heart size is slightly prominent. There is no pericardial effusion. The diameter of the as cending thoracic aorta is upper normal, measuring 3.7 cm. Diameter of the descending thoracic aorta is upper normal. No evidence of dissection.. VISUALIZED UPPER ABDOMEN:There are no significant adrenal masses. Spleen size normal. OSSEOUS: No significant osseous lesions.No fractures.. IMPRESSION: 1. Significant right lung infiltrates which have increased when compared to prior CT scan of December 01, most prominent in the right middle lobe. Lesser amount of infiltrate in the left lung although there are few small nodular densities in the left lower lobe which also require follow-up given the b reast cancer history here. 2. There are no pleural effusions nor obvious increasing intrathoracic adenopathy. 3. The esophagus appears dilated and contains fluid and material. This brings to mind the possibilit y of aspiration as a possible cause for the increasing infiltrates. RADIATION DOSE DELIVERED: 309.2mGy.cm Total DLP DATA REPOSITORY: All CT scans at this facility are submitted to the National Radiology Data Registry (NRDR) Dose Index Registry (DIR) with the [employer] (A[employer]). RADIATION OPTIMIZATION: All CT scans at this facility use at least one of these dose optimization te chniques: automated exposure control; mA and/or kV adjustment per patient size (includes targeted exa ms where dose is matched to clinical indication); or iterative reconstruction.
[2023-05-31] MEDS: Normal Saline - Diluent 50 ML VIAL IJ (08:53)
[2023-05-31] MEDS: Omnipaque 350 MG/ML 100 ML BTL 70 ML IJ (08:54)
== END ==
PROVIDERS: PCP Nurse Practitioner Family; Visit Provider Nurse Practitioner Family
DX: R05.9 Cough, unspecified (principal); R91.8 Other nonspecific abnormal finding of lung field
CPT/HCPCS: 71260; J3490

== ENCOUNTER 2023-05-31 07:13 | Outpatient (CLI) | payer MEDICARE, SELFPAY ==
[2023-05-31 09:25] LABS: Abs Immature Grans 0.04 10^3/uL (0.0-0.06); Absolute Basophil Count 0.08 10^3/uL (0.0-0.2); Absolute Eosinophil Count 0.18 10^3/uL (0.0-0.7); Absolute Lymphocyte Count 1.56 10^3/uL (1.2-3.4); Absolute Monocyte Count 1.26 10^3/uL (0.1-0.8); Absolute Neutrophil Count 6.71 10^3/uL (1.2-6.7); Basophils % 0.8; Eosinophils % 1.8; HCT 35.4 % (36.0-46.0); HGB 11.4 g/dL (11.2-15.7); Immature Grans % 0.4; Lymphocytes % 15.9; MCH 28.7 pg (27.0-33.0); MCHC 32.2 % (32.0-36.0); MCV 89 fL (80-95); MPV 8.4 fL (8.0-11.0); Monocytes % 12.8; Neutrophils % 68.3; Platelet Count 489 10^3/uL (130-400); RBC 3.97 10^6/uL (3.93-5.22); RDW-SD 42.6 fL; WBC 9.83 10^3/uL (4.4-10.8)
[2023-05-31 10:03] LABS: ALT 14 U/L (14-59); AST 17 U/L (15-37); Albumin 2.8 g/dL (3.4-5.0); Alkaline Phosphatase 54 U/L (46-116); Anion Gap 5.5 mmol/L (3-11); BUN 11 mg/dL (7-18); Bilirubin, Total 0.4 mg/dL (0.2-1.0); CO2 29.5 mmol/L (21.0-32.0); CREATININE 0.8 mg/dL (0.55-1.02); Calcium 8.7 mg/dL (8.5-10.1); Chloride 101 mmol/L (98-107); Estimated GFR 80.21 (mL/min/1.73m2); Glucose 85 mg/dL (74-106); Potassium 3.9 mmol/L (3.5-5.1); Sodium 136 mmol/L (136-145); TSH (W/Ref FT4) 0.76 uIU/mL (0.36-3.74); Total Protein 6.8 g/dL (6.4-8.2)
[2023-06-02 11:47] LABS: TB Interpretation Negative (Negative); TB1 Ag minus Nil 0.02 IU/ml; TB2 Ag minus Nil 0.01 IU/mL
== END 2023-05-31 07:14 | disposition home or self-care (01) ==
LOC: LBO 07:13
PROVIDERS: PCP Nurse Practitioner Family; Visit Provider Nurse Practitioner Family
DX: E04.1 Nontoxic single thyroid nodule (principal); J31.0 Chronic rhinitis; J45.909 Unspecified asthma, uncomplicated; R05.9 Cough, unspecified
CPT/HCPCS: 36415; 80053; 84443; 85025; 86480

== ENCOUNTER → 2023-06-15 01:33 | Outpatient (CLI) | payer MEDICARE, SELFPAY ==
--- NOTE | 2023-06-15 07:00 | DI.RAD_ITS ---
Exam(s) RF BARIUM SWALLOW EXAM: RF BARIUM SWALLOW CLINICAL HISTORY: recurrent aspiration issues,ASPIRATION PNEUMONIA,J69.0 TECHNIQUE: 2D and realtime digital imaging was performed. CONTRAST MATERIAL: Thick and thin barium and barium tablet were administered. COMPARISON: CT CT CHEST W from 05/31/2023 FINDINGS: The PA and lateral chest films show shows persistent infiltrates in the right middle lobe and lingula . Scoliosis noted in the spine. The lateral drop press hand view of the neck is advanced degenerative changes. The airway appears normal. Esophagus: The patient swallowed barium without difficulty. No evidence of aspiration during the exa m. No significant pooling in the vallecula or piriform sinuses. Noevidence for mucosal erosions. N ofold thickening. No mass is visible. Nostricture. Motility: There is a normal primary stripping wave. Mild tertiary contractions were noted in the dist al esophagus.. There is no hiatal hernia. Nogastroesophageal reflux was observed during the exam. IMPRESSION: No evidence of aspiration. Evidence of reflux. Mild presbyesophagus. RADIATION DOSE DELIVERED: micaela Navarrete=10.5 mGy
[2023-06-15] MEDS: Simethicone/Sod Bicarb/Cit Ac, 4 gram PACKET 1 PACKET PO (09:23)
[2023-06-15] MEDS: Barium Sulfate 60% W/V 355 ML BTL PO (09:24)
[2023-06-15] MEDS: Barium Sulfate 700 MG TAB PO (09:24)
[2023-06-15] MEDS: Barium Sulfate 98% W/W 140 ML BTL PO (09:25)
== END ==
PROVIDERS: PCP Nurse Practitioner Family; Visit Provider Nurse Practitioner Family
DX: J69.0 Pneumonitis due to inhalation of food and vomit (principal)
CPT/HCPCS: 74221; J3490

== ENCOUNTER → 2023-06-17 09:32 | Outpatient (BNVA) | payer MEDICARE, SELFPAY | PROVIDERS: PCP Nurse Practitioner Family; Referring Provider Nurse Practitioner Family; Visit Provider Student in an Organized Health Care Education/Training Program | DX: R93.89 Abnormal findings on diagnostic imaging of other specified body structures (principal); Z87.01 Personal history of pneumonia (recurrent) | CPT/HCPCS: 99215 ==

== ENCOUNTER 2023-06-20 06:18 | Day surgery (SDC) | payer MEDICARE, SELFPAY ==
[2023-06-20] VITALS (10 sets, daily range): BP systolic 100–148; BP diastolic 55–78; PULSE 77–92; RESP 14–22; TEMP 36.3–37.2; O2SAT 92–100; BMI 20.7
--- NOTE | 2023-06-20 06:33 | W.ANESPRE ---
General Info Date of Service Date Performed: 06/20/23 Height: 5 ft 4.17 in Weight: 55.111 kg Body Mass Index (BMI): 20.7 Surgical Procedure: Operation Date: 06/20/23 07:40 Proposed Procedure Side Surgeon p Bronchoscopy w/BAL & Possible Endobronchial Brushing Lennie Foster MD Meds Allergies and Home Medications Allergies Allergy/AdvReac Type Severity Reaction Status Date / Time cinoxate Allergy Mild hives Verified 06/20/23 06:26 homosalate Allergy Mild Hives Verified 06/20/23 06:26 octinoxate Allergy Mild Hives Verified 06/20/23 06:26 oxybenzone Allergy Mild Hives Verified 06/20/23 06:26 padimate O Allergy Mild FROM Verified 06/20/23 06:26 SUNBLOCK titanium Allergy Mild Hives Verified 06/20/23 06:26 ANIMAL DANDER Allergy Mild CONGESTION Uncoded 06/20/23 06:26 Home Medication Medication Instructions Recorded cetirizine 10 mg capsule (Zyrtec) 10 mg PO DAILY 11/17/18 alendronate 70 mg tablet 70 mg PO QWEEK #30 tabs 05/11/22 multivitamin 1 tab PO DAILY 09/20/22 calcium citrate 200 mg (950 mg) 600 mg PO BID 12/07/22 tablet albuterol sulfate 90 mcg/actuation 2 puff inhalation Q6H PRN 06/06/23 aerosol inhaler shortness of breath or wheezing #6.7 grams dextromethorphan-guaifenesin 5 10 ml PO DAILY PRN 06/17/23 mg-100 mg/5 mL oral liquid (Robitussin Cough-Chest Congestion DM) Current Visit Medications: Current Medications Generic Name Dose Route Start Last Admin Trade Name Freq PRN Reason Stop Dose Admin Ringer's Solution 1,000 mls @ 80 mls/hr 06/20/23 06:00 IV 06/20/23 23:59 INFUSION MARCOS IV Miscellaneous Supplies 1 each 06/20/23 06:00 Iv Access IV 06/20/23 23:59 DIRECTED MARCOS Sodium Chloride 0 ml 06/20/23 06:00 Normal Saline Flush 10 Ml Syr IV 06/20/23 23:59 PRN PRN Sodium Chloride 0 ml 06/20/23 06:00 Normal Saline 10 Ml Vial IJ 06/20/23 23:59 DIRECTED PRN Sterile Water 0 ml 06/20/23 06:00 Water,Injection,Sterile 10 Ml Vial IJ 06/20/23 23:59 DIRECTED PRN PFSH Active Problems Active Problems: Problem Status Onset Code Recurrent pneumonia J18.[address] R93.89 Aspiration pneumonia J69.0 Elevated antinuclear antibody (BOB) level R76.8 Contact dermatitis L25.9 Chest pain R07.9 Left knee pain M25.562 Prediabetes R73.03 Osteoporosis M81.0 Skin lesion L98.9 Thyroid nodule E04.1 Aortic stenosis I35.0 Rhinitis J31.0 Asthma J45.909 Non-toxic multinodular goiter 12/05/12 E04.2 Psoriatic arthritis 11/11/17 L40.50 Medical History Medical History (Updated 06/17/23 @ 11:53 by Myron Boswell) Breast cancer Family history of ischemic heart disease Cholelithiasis 11/19- cholecystectomy [facility] Aortic insufficiency Pleural effusion Atrophic vaginitis (12/17/11) Family history of GI malignancy colon cancer in mother Hx of breast cancer (12/17/11) s/p tamoxifen [id number], per pt recollection right breast Idiopathic scoliosis Skin tag of vaginal mucosa (02/23/16) seen on speculum exam, friable. Medical History Comments:: BP Drops Surgical History Surgical History (Updated 06/17/23 @ 11:53 by Myron Boswell) History of gynecological procedure History of mastectomy Status post breast lumpectomy Endometrial Biopsy 09/06/14; [facility] Breast, Mastectomy (12/03/02) Dr Polo Lopez (R) Breast, Lumpectomy 1989,10/31/02 Tobacco Smoking/Tobacco Use Status: Never Passive smoking exposure: Yes (Not on a daily basis. ) Second hand exposure: Yes Alcohol Alcohol Intake: current Alcohol intake frequency: a few times a week Alcohol type: beer and wine Substance Use Substance use: Never Substance use type: does not use Vital Signs and Lab Results Lab Results Blood Type / Crossmatch: No Data to Display Complete Blood Count: White Blood Count 9.83 10^3/uL (4.4-10.8) 05/31/23 09:13 Red Blood Count 3.97 10^6/uL (3.93-5.22) 05/31/23 09:13 Hemoglobin 11.4 g/dL (11.2-15.7) 05/31/23 09:13 Hematocrit 35.4 % (36.0-46.0) L 05/31/23 09:13 Platelet Count 489 10^3/uL (130-400) H 05/31/23 09:13 Complete Metabolic Panel: Sodium 136 mmol/L (136-145) 05/31/23 09:13 Potassium 3.9 mmol/L (3.5-5.1) 05/31/23 09:13 Chloride 101 mmol/L (98-107) 05/31/23 09:13 Carbon Dioxide 29.5 mmol/L (21.0-32.0) 05/31/23 09:13 BUN 11 mg/dL (7-18) 05/31/23 09:13 Creatinine 0.8 mg/dL (0.55-1.02) 05/31/23 09:13 Est GFR (CKD-EPI 2020) 80.21 (mL/min/1.73m2) 05/31/23 09:13 Calcium 8.7 mg/dL (8.5-10.1) 05/31/23 09:13 Albumin 2.8 g/dL (3.4-5.0) L 05/31/23 09:13 Glucose 85 mg/dL (74-106) 05/31/23 09:13 Liver Function Panel: Alanine Aminotransferase (ALT/SGPT) 14 U/L (14-59) 05/31/23 09:13 Aspartate Amino Transf (AST/SGOT) 17 U/L (15-37) 05/31/23 09:13 Coagulation Panel: No Data to Display Cardiac Panel: No Data to Display Arterial Blood Gas: No Data to Display Venous Blood Gas: No Data to Display Pancreas Panel: No Data to Display Thyroid Panel: Thyroid Stimulating Hormone (TSH) 0.76 uIU/mL (0.36-3.74) 05/31/23 09:13 Infectious Disease: No Data to Display Blood Cultures: No Data to Display Toxicology Panel: No Data to Display Anesthesia Assessment and Plan Anesthesia History Personal History: No History of Anesthesia Complications and Other Family History: No Family History of Anesthesia Complications Exercise Tolerance Exercise Tolerance: Metabolic Equivalents>4 Pertinent Negatives Pertinent Negatives: No Symptoms of GERD (Diagnosed with reflux) Cardiac & Pulmonary Exam Cardiac Exam: Heart Murmur Present (Systolic) Pulmonary Exam: Clear Bilateral Breath Sounds Implantable Cardiac Device Does patient have a Pacemaker or an ICD?: No Airway Exam Known Difficult Airway: No Mallampati Class: 2 Mouth Opening: Normal (> 3cm) Thyromental Distance: Greater than 3 cm Neck Range of Motion: Full ROM Neck Circumference: Normal Teeth Condition: Normal Dentition ASA Classification ASA Score: ASA 3 Emergency Case?: No NPO Status NPO Status: NPO Clears >2 hours, Solids >8 hours Anesthesia Plan Resuscitation Status: Full Code Anesthesia Technique: General Anesthesia Airway Planned: Endotracheal Tube Monitors Used: Standard Monitors Preoperative Comments:: Patient Name: Maria E Barragan Unit #: [id number] Loc: DI Ordering Provider: Ilda Alonzo M.D. Status: REG [facility] Primary Care Provider: Cass Ortiz NP Date of Exam: 09/14/22 Sex: F Admission Date: 09/14/22 : 1955 Age: 66 APPROVED REPORT EXAM: Comprehensive 2D, Doppler, and color-flow Echocardiogram Patient Location: Out-Patient Tire Curer: Quin Mullins RDCS (AE) Indications: Aortic stenosis, Chest pain Other Information Study Quality: Adequate Conclusion Normal left ventricular chamber size and wall thickness. Ejection fraction is 60%. Wall motion is normal Normal right ventricular size and systolic function Both atria are normal in size Aortic valve is sclerotic and probably trileaflet. There is moderate aortic regurgitation. There is mild aortic stenosis. Mean gradient is 22, peak 37 mmHg. Calculated aortic valve area is 1.8 cm?? Mildly thickened mitral leaflets with anterior leaflet prolapse. There is mild mitral regurgitation Normal tricuspid valve with mild regurgitation There is moderate to severe pulmonic regurgitation Dilated ascending aorta measuring 3.65 cm Wall motion Left Ventricle The left ventricle is normal size. The left ventricular systolic function is normal. The left ventricular ejection fraction is within the normal range. There is normal left ventricular wall thickness. There is normal LV segmental wall motion. There is no ventricular septal defect visualized. LVEF is 60%. Right Ventricle The right ventricle is normal size. The right ventricular systolic function is normal. Atria The left atrium size is normal. The right atrium size is normal. The interatrial septum is intact with no evidence for an atrial septal defect. Aortic Valve The Aortic valve is sclerotic. Aortic valve is probably trileaflet. Mild aortic stenosis. Peak aortic valve gradient is 37.7mmHg. Highest mean aortic valve gradient is 22.4mmHg. Moderate aortic regurgitation. Mitral Valve Mildly thickened mitral leaflets No evidence of mitral valve stenosis. Mild mitral regurgitation. Mild prolapse of the anterior mitral valve leaflet. Tricuspid Valve The tricuspid valve is normal in structure. There is no tricuspid valve stenosis. Mild tricuspid regurgitation. Pulmonic Valve The pulmonary valve is normal in structure. There is no pulmonic valvular stenosis. Moderate to severe pulmonic regurgitation. Great Vessels The aortic root is normal in size. The ascending aorta is mildly dilated. Aortic arch is not well visualized. IVC is normal in size and collapses >50% with inspiration. Pericardium There is no pericardial effusion. 2D Dimensions IVSD d PLAX 0.75 cm F: 0.6-1.0LV Vol A2C d MOD 110.6 mL LVPW d PLAX 0.78 cm F: 0.6 - 1.0LV Vol A4C d MOD 102.6 mL LVID d PLAX 5.10 cm F: 3.8 - 5.2LA vol/ BSA A4C s A-L28.7 mL/m2 LVDs 3.40 cm F: 2.2 - 3.5LA Area A4C s MOD 16.69 cm2 Ao Root d 3.14 cm F: 2.7 - 3.3LV EF A4C MOD 60.1 % RA Area A4C11.40 cm2LV EF A2C MOD 60.4 % RA Vol/ BSA A4C s A-L 16.4 mL/m2LV EF Biplane MOD 59.0 % Ao Asc Diam d 3.65 cm F: 2.3 - 3.1SV64.40 mL LV EF Teichholz 61.2 %SV Index39.93 mL/m2 LVEF (Lentz's)58.97 % F: 54 - 74 LV Kvvbdl73.46 mL F: 46 - 106 LV Volume Index54.94 mL/m2 F: 29 - 61 LV Vol Biplane MOD 109.2 mL FS32.95 % M-Mode TAPSE 1.92 cm (M/F) >1.7 LV Diastology MV E' medial0.075 (>0.07 m/s)E/A Ratio 0.8 LV E/e MED7.85 (<14)MV E Vmax 0.59 (0.4-1.3 m/s) MV E' lateral0.100 (>0.1 m/s)MV A Vmax 0.70 (0.4-1.3 m/s) LV E/e LAT5.85 (<14)MV E/A Ratio 0.79 MV E/E' medial 7.87 MV E/E' lateral5.85 Aortic Valve LVOT Area2.97 cm2AoV Area Vmax1.81 cm2 LVOT Vmax 1.87 m/sAoV Area/ BSA (Vmax)1.12 cm2/m2 LVOT Mean Saul.1.34 m/sAVA Mean Saul.1.77 cm2 LVOT Peak Grad 13.9 mmHgAVA Mean Saul. Index1.10 cm2/m2 LVOT Mean Grad 8.1 mmHgAR DT 1444 msec LVOT VTI0.460 mAR PHT 419 msec LVOT Diam s 1.90 cm AoV Vmax3.07 m/s Velocity Ratio 0.61 AoV Mean Saul.2.25 m/s AoV Peak Grad37.7 mmHg LVOT SV 136.81 mL AoV Mean Grad22.4 mmHg AoV VTI0.694 m AoV Area VTI1.97 cm2 AoV Area/ BSA (VTI)1.22 cm/m2 Mitral Valve MV DT 322 (160-240 msec) MV PHT93 msec MV Area PHT 2.35 cm2 Pulmonary Valve PV Vmax 0.83 (0.5-1.5 m/s)RVOT Peak Gr.1.77 mmHg PV Peak Grad 2.8 mmHgRVOT Mean Gr.0.85 mmHg PV Mean Grad 1.2 mmHgRVOT VTI0.148 m PV VTI 0.165 mRVOT Vmax 0.67 m/s Tricuspid Valve TR Peak Grad 15.1 mmHgTR Vmax 1.94 m/s RA Pressure 3.00 mmHg RVSP (TR) 18.1 mmHg Ordered By: Ilda Alonzo M.D. EKG PATIENT NAME: Maria E Barragan UNIT #: [id number] ORDERING PROVIDER: Ilda Alonzo M.D. PRIMARY CARE PROVIDER: CASS ORTIZ NP DATE/TIME OF SERVICE: 06/28/22 0950 : 1955 PERFORMING LOCATION: .CARD APPROVED REPORT Exam: Resting ECG Reason for Exam: Chest discomfort Patient Location: O HR:71 bpm ECG Measurements Heart Rate 71 AXIS WV 117 P 71 QRSd 110 QRS 85 QT 424 T9 QTc 461 Conclusion Sinus rhythm...normal P axis, V-rate 50- 99 Borderline short WV interval...WV int <120mS Left atrial enlargement...P, P'>60mS, <-0.15mV V1 Otherwise unremarkable
[2023-06-20] MEDS: Lactated Ringers 1,000 ML 80 ML IV (07:18)
[2023-06-20] MEDS: Lidocaine 1% Pres-Free 5 ML VIAL (07:55)
--- NOTE | 2023-06-20 08:01 | PAPNONF_PTH ---
PATIENT: Maria E Barragan LOC: [facility] U#:[id number] AGE/SX: 67/F ROOM: RE06/20/[address]: Lennie Foster MD : 1955 BED: DIS: 06/20/2023 SPEC #: [id number] RECD: 06/20/23 13:23 STATUS: TEJAL REQ #: [id number] MARNI: 06/20/23 08:[address]: Lennie Foster DEPT: FOR[facility] Cytology RECD BY: Emilie Packer ENTERED: 06/20/23 13:23 SP TYPE: MARÍA GARCIA DR: Cass Rogers, HAND TENNIS BALL COVERER Tissues: 1 - BODY FLUID CYTO(NOT S/U/N/EM)[facility] Procedures: BODY FLUID CYTO(NOT SPU/UR/NIP/ENDOM)[facility] Comments: [id number] (TRV = 25 ml, SENT FRESH) (REFRIGERATED)
[2023-06-20] MEDS: Albuterol/Ipratropium 3 ML UPD VIAL UPD (08:25)
--- NOTE | 2023-06-20 09:01 | W.PM.OP ---
Date of service: 06/20/23 Time of Service: 07:30 Operative Note Operative Note Refer to Anesthesia Record Procedure Description: Bronchoscopy Indication:Bnormal chest CT Procedure performed: Flexible bronchoscopy with BAL Sedation plan: General anesthesia Informed consent was obtained after the risks and benefits or the procedure were discussed. The patient was sedated and intubated by anesthesia. A proper and complete OR compliant time out was performed. The therapeutic 6.2mm Olympus bronchoscope was inserted through the endotracheal tube. The bronchoscope was inserted into the airways through the endotracheal tube, where 3cc in total of 1% topical lidocaine was used the anesthetize the airways. The trachea was midline and without lesion or injury. The mucosa appeared normal and there were no signs of tracheomalacia. The susanne was sharp. All bronchial subsegments were visualized. There were moderate white, thick secretions present in the trachea and the left and right mainstem airways. The lingula appeared inflamed and had more significant white. thick secretions that were suctioned as able. The RML also had more significant secretions present than other subsegments. A bronchoalveolar lavage was performed in the RML. A total of 120cc of saline was administered with a return of 75cc. The fluid was slightly cloudy in appearance with visible mucus plugging. The bronchoscope was then removed and the case terminated. The patient experienced post operative bronchospasm and was given albuterol HFA x6 in the OR prior to PACU transport. The patient was taken to PACU in stable condition. Samples collected:RML BAL, bronchial washings Testing ordered:cell diff, bacterial, fungal and AFB cultures, cytopathology Complications: post operative bronchospasm which was resolved with albuterol given in the OR, nebulizer in PACU along with IV Decadron. Discussed with day surgery nurse and asked her to contact me with any concerns what continued bronchospasm. Lennie Foster MD Pulmonary & Critical Care Medicine
--- NOTE | 2023-06-20 10:15 | W.ANESPOSTOP ---
Postoperative Evaluation Date, Time and Location Date Performed: 06/20/23 Time Performed: 10:15 Patient Location: Day Surgery Unit Vital Signs Most Recent Imported Vital Signs: Most Recent Vital Signs Temp Pulse Resp BP Pulse Ox 36.4 C L 77 18 120/69 92 06/20/23 09:53 06/20/23 09:53 06/20/23 09:53 06/20/23 09:53 06/20/23 09:53 Pain Score Most Recent Pain Score: Most Recent Pain Score Pain Level 0 06/20/23 09:53 Assessment Mental Status: Awake (Alert & Oriented to Patient Baseline) Airway and Respiratory Function: Patent airway with normal (patient baseline) respiratory exam Cardiovascular Function: Hemodynamically Stable Hydration Status: Adequately Hydrated Nausea & Vomiting: No Nausea or Vomiting Pain: Pt. Denies Any Pain Peripheral Nerve Block: Patient did not receive a nerve block Postoperative Comments:: Pt had a protracted bronchialspasm on extubation that required positive pressure face mask and albuterol inhaler. Gustabo Naranjo, [employer] INSTALLER
[2023-06-20 10:29] LABS: Abs Immature Grans 0.09 10^3/uL (0.0-0.06); Absolute Basophil Count 0.04 10^3/uL (0.0-0.2); Basophils % 0.2; Eosinophils % 0.1; HCT 29.7 % (36.0-46.0); HGB 9.6 g/dL (11.2-15.7); Immature Grans % 0.5; MCH 28.8 pg (27.0-33.0); MCHC 32.3 % (32.0-36.0); MCV 89 fL (80-95); MPV 8.7 fL (8.0-11.0); Neutrophils % 95.2; Platelet Count 379 10^3/uL (130-400); RBC 3.33 10^6/uL (3.93-5.22); RDW 13.6 % (11.7-14.6); RDW-SD 44.3 fL
[2023-06-20 10:36] LABS: Absolute Eosinophil Count 0.02 10^3/uL (0.0-0.7); Absolute Lymphocyte Count 0.35 10^3/uL (1.2-3.4); Absolute Monocyte Count 0.35 10^3/uL (0.1-0.8); Absolute Neutrophil Count 16.76 10^3/uL (1.2-6.7)
[2023-06-20 18:15] LABS: IgE 2 IU/mL (<158)
[2023-06-21 09:44] LABS: C3 Complement 82 mg/dL (81-157); C4 Complement 19 mg/dL (13-39)
[2023-06-21 09:57] LABS: IgA 220 mg/dL (85-499); IgG 1072 mg/dL (610-1616); IgM 136 mg/dL (35-242)
[2023-06-21 10:03] LABS: RNP Ab, IgG <6.0 CU (<20.0); Ro60 Ab, IgG <7.0 CU (<20.0); SS-A/Ro, IgG <2.3 CU (<20.0); SS-B (La) Ab, IgG <3.3 CU (<20.0); Sm (Smith) Ab, IgG <8.0 CU (<20.0); dsDNA Ab, IgG <22.0 IU/mL (<27.0)
[2023-06-21 16:39] LABS: Neutrophils Fluid Relative 84 %
[2023-06-21 16:40] LABS: Mono/Macrophage Fluid Relative 16 %
[2023-06-22 10:49] LABS: Gram Smear Result Neutrophils Present
[2023-06-22 15:06] LABS: Fungitell Qualitative Negative (Negative); Fungitell Quantitative Value <31 pg/mL (<60 pg/mL)
[2023-06-23 09:06] LABS: Specimen Description BAL
[2023-07-11 12:03] LABS: Anti-SAE1 Ab, IgG <20 Units (<20)
[2023-07-11 12:19] LABS: Anti-EJ Ab Negative (Negative); Anti-Jo-1 Ab <20 Units (<20); Anti-Ku Ab Negative (Negative); Anti-MDA-5 Ab (CADM-140) <20 Units (<20); Anti-Mi-2-Ab Negative (Negative); Anti-NXP-2 (P140) Ab 48 Units (<20); Anti-OJ Ab Negative (Negative); Anti-PL-12 Ab Negative (Negative); Anti-PL-7 Ab Negative (Negative); Anti-PM/Scl-100 Ab <20 Units (<20); Anti-SRP Ab Negative (Negative); Anti-SS-A 52kD Ab, IgG <20 Units (<20); Anti-TIF-1gamma Ab <20 Units (<20); Anti-U1 RNP Ab <20 Units (<20); Anti-U2 RNP Ab Negative (Negative); Anti-U3 RNP (Fibrillarin) Negative (Negative)
== END 2023-06-20 10:38 | disposition home or self-care (01) ==
PROVIDERS: Internal Medicine Rheumatology; PCP Nurse Practitioner Family; Visit Provider Student in an Organized Health Care Education/Training Program
PROC: 0BJ08ZZ Inspection of Tracheobronchial Tree, Via Natural or Artificial Opening Endoscopic (ICD-10-PCS; CPT 31622; principal; 2023-06-20 07:30)
DX: J47.9 Bronchiectasis, uncomplicated (principal); R93.89 Abnormal findings on diagnostic imaging of other specified body structures; Z79.899 Other long term (current) drug therapy; R73.03 Prediabetes; Z85.3 Personal history of malignant neoplasm of breast
CPT/HCPCS: 31624; 36415; 80162; 82784; 83516; 83520; 86235; 87070; 87077; 87102; 87116; 87205; 87206; 87305; 87449; 82785; 82787; 85025; 86160; 86225; 86606; 88104; J1100; J2001; J2003; J2250; J2405; J2704; J3010; J7620

== ENCOUNTER 2023-06-24 02:59 | Outpatient (CLI) | payer MEDICARE, SELFPAY ==
[2023-06-24] MEDS: Levalbuterol HFA 15 GM INH 4 PUFF IH (14:43)
[2023-06-24] MEDS: Inhaler, Assist Device 1 EACH MC (14:43)
--- NOTE | 2023-06-24 14:46 | W.PFT ---
Date of service: 06/24/23 Time of Service: 13:06 Pulmonary Function Test Result Indications: Dyspnea Interpretation Spirometry: There is no airflow limitation. No bronchodilator response. Lung Volumes: Normal lung volumes Diffusion Capacity: Normal diffusion Airway Pressure: Normal airways resistance Impression Normal pulmonary function testing Clinical Correlation therefore is recommended.
== END 2023-06-24 03:00 | disposition home or self-care (01) ==
LOC: RT 02:59
PROVIDERS: PCP Nurse Practitioner Family; Visit Provider Student in an Organized Health Care Education/Training Program
DX: R06.00 Dyspnea, unspecified (principal)
CPT/HCPCS: 94060; 94726; 94729

== ENCOUNTER → 2023-07-08 14:24 | Outpatient (BNVA) | payer MEDICARE, SELFPAY | PROVIDERS: PCP Nurse Practitioner Family; Referring Provider Nurse Practitioner Family; Visit Provider Student in an Organized Health Care Education/Training Program | DX: J47.9 Bronchiectasis, uncomplicated (principal); J31.0 Chronic rhinitis; J18.9 Pneumonia, unspecified organism | CPT/HCPCS: 99214 ==

== ENCOUNTER → 2023-09-12 04:00 | Outpatient (CLI) | payer MEDICARE, SELFPAY ==
--- NOTE | 2023-09-12 09:30 | DI.US_ITS ---
APPROVED REPORT EXAM: Comprehensive 2D, Doppler, and color-flow Echocardiogram Patient Location: Out-Patient Dye[employer] Machine Feeder: Quin Mullins RDCS (AE) Indications: Aortic stenosis and regurgitation Other Information Study Quality: Adequate Conclusion Normal left ventricular wall thickness and chamber size. Ejection fraction is 60%. Wall motion is n ormal Normal right ventricular size and function Both atria are normal in size Aortic valve is sclerotic and trileaflet. There is moderate aortic stenosis. Peak gradient is 37, m ghazala 22 mmHg. Calculated aortic valve area is 1.2 cm??. There is moderate eccentric aortic regurgita tion Mild mitral valve prolapse, mild mitral regurgitation Ascending aorta measures 3.5 cm Wall motion Left Ventricle The left ventricle is normal size. The left ventricular systolic function is normal. The left ventric ular ejection fraction is within the normal range. There is normal left ventricular wall thickness. T here is normal LV segmental wall motion. There is no ventricular septal defect visualized. LVEF is 60 %. Right Ventricle The right ventricle is normal size. The right ventricular systolic function is normal. Atria The left atrium size is normal. The right atrium size is normal. The interatrial septum is intact wit h no evidence for an atrial septal defect. Aortic Valve Aortic valve is calcified. Aortic valve is trileaflet. Moderate aortic stenosis. Peak aortic valve gr adient is 36.72mmHg. Highest mean aortic valve gradient is 21.74mmHg. Calculated ELLA by the continuit y equation is 1.2cm2. Moderate eccentric aortic regurgitation. Mitral Valve The mitral valve is normal in structure. No evidence of mitral valve stenosis. Mild mitral regurgitat ion. Mild mitral valve prolapse. Tricuspid Valve The tricuspid valve is normal in structure. There is no tricuspid valve stenosis. Trace tricuspid reg urgitation. Pulmonic Valve The pulmonary valve is normal in structure. There is no pulmonic valvular stenosis. Mild pulmonic reg urgitation. Great Vessels The aortic root is normal in size. The ascending aorta is mildly dilated. Aortic arch is not well vis ualized. IVC is normal in size and collapses >50% with inspiration. Pericardium There is no pericardial effusion. 2D Dimensions IVSD d PLAX 0.70 cm F: 0.6-1.0 Ao Root d 3.07 cm F: 2.7 - 3.3 LVPW d PLAX 0.76 cm F: 0.6 - 1.0 Ao Asc Diam d 3.50 cm F: 2.3 - 3.1 LVID d PLAX 5.07 cm F: 3.8 - 5.2 LVDs 3.50 cm F: 2.2 - 3.5 LV EF Teichholz 58.3 % FS 30.94 % LV EDV (Teich) 122.2 mL LV ESV (Teich) 51.0 mL M-Mode TAPSE 2.24 cm (M/F) >1.7 Auto EF LV EDV A4C 110.9 mL LV EDV A2C 103.3 mL LV EDV BP 109.3 mL LV ESV A4C 47.8 mL LV ESV A2C 44.6 mL LV ESV BP 45.6 mL LVEF(%) A4C 56.9 % LVEF(%) A2C 56.8 % LVEF(%) BP 58.3 % LV SV A4C 63.1 ml LV SV A2C 58.7 ml LV SV BP 63.7 ml LV CO A4C 4.5 L/min LV CO A2C 3.3 L/min LV CO BP 3.9 L/min HR A4C 71.44 BPM HR A2C 56.96 BPM LV EDV Index (BP) LA Volume LA Length A4C 5.5 cm LA Length A2C 4.9 cm LA Area A4C s 19.57 cm2 LA Area A2C s 9.49 cm2 LA Vol A4C A-L 59.03 mL LA Vol A2C A-L 15.61 mL LA Vol Biplane A-L 32.2 mL LA Vol/BSA A4C A-L LA Vol/BSA A2C A-L LA Vol/BSA BP A-L 20.9 mL/m2 LA Vol A4C MOD 55.9 mL LA Vol A2C MOD 15.0 mL LA Vol BP MOD 29.2 mL RA Volume RA Area A4C 13.6 cm2 RA ESV A4C (A-L) 36.9mL RA Vol/BSA A4C A-L RA Length A4C 4.2 cm RA ESV A4C (MOD) 34.6mL LV Diastology MV E' medial 0.067 (>0.07 m/s) MV E Vmax 0.56 (0.4-1.3 m/s) MV E/E' MED 8.46 (<14) MV A Vmax 0.75 (0.4-1.3 m/s) MV E' lateral 0.056 (>0.1 m/s) E/A Ratio 0.7 MV E/E' LAT 10.09 (<14) MV E' Average 0.061 m/s MV E/E'(average) 9.20 Aortic Valve AoV Vmax 3.03 m/s LVOT Vmax 1.28 m/s AoV Peak Grad 55.7 mmHg LVOT Peak Grad 6.5 mmHg AoV Area (Vmax) 1.28 cm2 LVOT VTI 0.347 m AoV VTI 0.876 m LVOT Mean Grad 3.9 mmHg AoV Mean Saul. 2.19 m/s LVOT SV 105.57 mL AoV Mean Grad 21.7 mmHg LVOT Diam s 1.95 cm AoV Area (VTI) 1.20 cm2 AV Regurg Peak Gr. 74.70 mmHg Velocity Ratio 0.42 AR Decel [place] 2.9m/sec2 AR DT 1525 msec AR PHT 442 msec AR Vmax 4.31 m/s Mitral Valve MV DT 313 (160-240 msec) MV Vmax TIPS 0.71 m/s MV Mean Grad 0.8 (<2mmHg) MV VTI 0.212 m Pulmonary Valve PV Vmax 0.77 (0.5-1.5 m/s) RVOT Vmax 0.52 m/s PV Peak Grad 2.4 mmHg RVOT Peak Gr. 1.1 mmHg PV Mean Saul 0.52 m/s RVOT VTI 0.148 m PV Mean Grad 1.3 mmHg RVOT Mean Gr. 0.6 mmHg Tricuspid Valve RA Pressure 3.00 mmHg TR Vmax 2.26 m/s TR Peak Grad 20.3 mmHg RVSP (TR) 23.3 mmHg
== END ==
PROVIDERS: PCP Nurse Practitioner Family; Visit Provider Internal Medicine Cardiovascular Disease
DX: I35.0 Nonrheumatic aortic (valve) stenosis (principal); I34.0 Nonrheumatic mitral (valve) insufficiency; I36.1 Nonrheumatic tricuspid (valve) insufficiency; I37.1 Nonrheumatic pulmonary valve insufficiency
CPT/HCPCS: 93306

== ENCOUNTER 2023-09-19 13:43 | Outpatient (CLI) | payer MEDICARE, SELFPAY ==
--- NOTE | 2023-09-19 13:30 | RT.EKG_ITS ---
APPROVED REPORT Exam: Resting ECG Reason for Exam: Follow up needed Patient Location: O HR:80 bpm ECG Measurements Heart Rate 80 AXIS DE 146 P 66 QRSd 105 QRS 81 QT 419 T -31 QTc 484 Conclusion Sinus rhythm...normal P axis, V-rate 50- 99 Left atrial enlargement...P, P'>60mS, <-0.15mV V1 Nonspecific T abnormalities, inferior leads...T <-0.10mV, II III aVF
== END 2023-09-19 13:44 | disposition home or self-care (01) ==
LOC: DI.CARD 13:45
PROVIDERS: PCP Nurse Practitioner Family; Referring Provider Nurse Practitioner Family; Visit Provider Internal Medicine Cardiovascular Disease
DX: Z82.49 Family history of ischemic heart disease and other diseases of the circulatory system (principal); J90 Pleural effusion, not elsewhere classified
CPT/HCPCS: 93010

== ENCOUNTER → 2023-09-19 13:43 | Outpatient (BNVA) | payer MEDICARE, SELFPAY | PROVIDERS: PCP Nurse Practitioner Family; Referring Provider Nurse Practitioner Family; Visit Provider Internal Medicine Cardiovascular Disease | DX: R94.31 Abnormal electrocardiogram [ECG] [EKG] (principal); I35.1 Nonrheumatic aortic (valve) insufficiency; I35.0 Nonrheumatic aortic (valve) stenosis | CPT/HCPCS: 93005; 99213 ==

== ENCOUNTER → 2023-10-19 03:45 | Outpatient (CLI) | payer MEDICARE, SELFPAY ==
--- NOTE | 2023-10-19 07:15 | DI.CT_ITS ---
Exam(s) CT CHEST WO EXAM: CT CHEST WO CLINICAL HISTORY: assess improvement in consolidations, BRONCHIECTASIS, J47.9. TECHNIQUE: Imaging protocol: Axial computed tomography images were obtained and coronal and sagittal reformatted images were created and reviewed. CONTRAST MATERIAL: Noncontrast COMPARISON: CT CT CHEST W from 05/31/2023 FINDINGS: Pulmonary parenchyma: Scarring bilateral lung apices. No suspicious nodules. No mucous plugging. Stable areas of atelectasis and bronchiectasis in the right middle lobe and ling astrid. Mild bronchiectasis and scarring in the anterior right lower lobe adjacent to the major fissure . Improvement in right middle lobe infiltrate density seen medial right upper lobe no longer present . Patchy densities seen in the lower lobes are no longer present. Interstitial changes: None. Emphysema: None. Pleura: No effusion or pneumothorax. Heart: The heart is mildly dilated. The coronary arteries show mild calcifications. Aorta: Thoracic aorta non-dilated. Mild atherosclerotic changes. Lymph nodes: Stable small mediastinal nodes. Bones: Scoliosis and degenerative changes are seen. No evidence of compression fracture. Upper abdomen: Unremarkable. Soft tissues: Unremarkable. Soft tissues: Right mastectomy IMPRESSION: Significant interval improvement of bilateral infiltrates. Scarring and bronchiectasis remain present in the anterior lingula and medial right middle lobe. RADIATION DOSE DELIVERED: 338.04mGy.cm Total DLP 338.04mGy.cm Total DLP DATA REPOSITORY: All CT scans at this facility are submitted to the National Radiology Data Registry (NRDR) Dose Index Registry (DIR) with the [employer] (ACR). RADIATION OPTIMIZATION: All CT scans at this facility use at least one of these dose optimization te chniques: automated exposure control; mA and/or kV adjustment per patient size (includes targeted exa ms where dose is matched to clinical indication); or iterative reconstruction.
== END ==
PROVIDERS: PCP Nurse Practitioner Family; Visit Provider Student in an Organized Health Care Education/Training Program
DX: J47.9 Bronchiectasis, uncomplicated (principal)
CPT/HCPCS: 71250

== ENCOUNTER → 2023-11-22 13:27 | Outpatient (BNVA) | payer MEDICARE, SELFPAY | PROVIDERS: PCP Nurse Practitioner Family; Referring Provider Nurse Practitioner Family; Visit Provider Internal Medicine Critical Care Medicine | DX: J47.9 Bronchiectasis, uncomplicated (principal) | CPT/HCPCS: 99214 ==

== ENCOUNTER → 2023-11-22 15:55 | Outpatient (CLI) | payer MEDICARE, SELFPAY ==
--- NOTE | 2023-11-22 14:30 | DI.RAD_ITS ---
Exam(s) XR CHEST 2V PA LATERAL EXAM: XR CHEST 2V PA LATERAL CLINICAL HISTORY: productive cough, bronchiectasis, J47.9. TECHNIQUE: 2D digital imaging was performed. COMPARISON: CR,RF RF BARIUM SWALLOW from 06/15/[address] CHEST WO from 10/19/[address] scan 10/19/2023. FINDINGS: 2 views: Thoracic scoliosis convex right is again noted. Heart size is normal. The mediastinum is not widened. Further improvement in the left lung infiltrate when compared to 06/15/2023. Left lung presently mo ears relatively clear. There is some persistent infiltrate in the right middle lobe. This is best s een on the lateral view and corresponds to findings present on CT scan of 10/19/2023. No pleural eff usions. No pulmonary edema. IMPRESSION: Persistent right middle lobe infiltrate. Follow-up to resolution recommended. Left lung is presently clear. There are no pleural effusions on the present study DATA REPOSITORY: RADIATION DOSE DELIVERED:
== END ==
PROVIDERS: PCP Nurse Practitioner Family; Visit Provider Internal Medicine Critical Care Medicine
DX: J47.9 Bronchiectasis, uncomplicated (principal); M41.34 Thoracogenic scoliosis, thoracic region
CPT/HCPCS: 71046

== ENCOUNTER 2023-12-05 18:48 | Outpatient (REF) | payer MEDICARE, SELFPAY | END 2023-12-05 18:49 | disposition home or self-care (01) | LOC: LBN 18:48 | PROVIDERS: PCP Nurse Practitioner Family; Visit Provider Internal Medicine Critical Care Medicine | DX: J47.9 Bronchiectasis, uncomplicated (principal) | CPT/HCPCS: 87070; 87205 ==

== ENCOUNTER 2023-12-16 01:35 | Outpatient (CLI) | payer MEDICARE, SELFPAY ==
[2023-12-16 13:30] LABS: Hemoglobin A1C 5.9 % (<5.7)
[2023-12-16 13:32] LABS: Anion Gap 5.7 mmol/L (3-11); BUN 8 mg/dL (7-18); CO2 31.3 mmol/L (21.0-32.0); CREATININE 0.8 mg/dL (0.55-1.02); Calcium 8.7 mg/dL (8.5-10.1); Calculated LDL 125 mg/dL (<100); Chloride 101 mmol/L (98-107); Cholesterol 192 mg/dL (<200); Estimated GFR 79.71 (mL/min/1.73m2); Glucose 98 mg/dL (74-106); HDL Cholesterol 59 mg/dL (40-60); Sodium 138 mmol/L (136-145); Triglyceride 43 mg/dL (<150)
[2023-12-30 16:24] LABS: Histoplasma/Blastomyces Result Not Detected (NotDetected)
[2023-12-30 16:25] LABS: Histoplasma/Blastomyces Value Not Detected
== END 2023-12-16 01:36 | disposition home or self-care (01) ==
LOC: LOS 01:35
PROVIDERS: Student in an Organized Health Care Education/Training Program; PCP Nurse Practitioner Family; Visit Provider Nurse Practitioner Family
DX: R73.09 Other abnormal glucose (principal); L40.50 Arthropathic psoriasis, unspecified; Z00.00 Encounter for general adult medical examination without abnormal findings; J45.909 Unspecified asthma, uncomplicated; I35.0 Nonrheumatic aortic (valve) stenosis; E04.1 Nontoxic single thyroid nodule; M81.0 Age-related osteoporosis without current pathological fracture; R93.89 Abnormal findings on diagnostic imaging of other specified body structures
CPT/HCPCS: 36415; 80048; 80061; 87449; 83036; 87385

== ENCOUNTER → 2023-12-26 14:00 | Outpatient (BNVA) | payer MEDICARE, SELFPAY | PROVIDERS: PCP Nurse Practitioner Family; Referring Provider Nurse Practitioner Family; Visit Provider Internal Medicine Critical Care Medicine | DX: J47.9 Bronchiectasis, uncomplicated (principal) | CPT/HCPCS: 99215 ==

== ENCOUNTER 2023-12-27 17:46 | Outpatient (REF) | payer MEDICARE, SELFPAY | END 2023-12-27 17:47 | disposition home or self-care (01) | LOC: LBN 17:46 | PROVIDERS: PCP Nurse Practitioner Family; Visit Provider Internal Medicine Critical Care Medicine | DX: J47.9 Bronchiectasis, uncomplicated (principal) | CPT/HCPCS: 87077; 87070; 87205 ==

== ENCOUNTER 2023-12-29 02:38 | Outpatient (CLI) | payer MEDICARE, SELFPAY ==
--- NOTE | 2023-12-29 07:55 | DI.CT_ITS ---
Exam(s) CT CHEST WO EXAM: CT CHEST WO CLINICAL HISTORY: worsening TORRES, bronchiectasis, J47.9. TECHNIQUE: Imaging protocol: Axial computed tomography images were obtained and coronal and sagittal reformatted images were created and reviewed. CONTRAST MATERIAL: Noncontrast COMPARISON: CT CT CHEST WO from 10/19/2023 CR XR CHEST 2V PA LATERAL from 11/22/2023 FINDINGS: Pulmonary parenchyma: Stable biapical scarring. New infiltrate anterior medial left upper lobe. Sta ble atelectasis and bronchiectasis in the inferomedial lingula. Infiltrate now seen in anterior infe rior aspect right lower lobe. Infiltrate now present in right middle lobe. No suspicious nodules. Emphysema: None. Tracheobronchial tree: No mucous plugging. No bronchiectasis . Interstitial changes: None. Pleura: No effusion or pneumothorax. Heart: The heart is mildly dilated. The coronary arteries show mild calcifications. Aorta: Thoracic aorta non-dilated. Mild atherosclerotic changes. Lymph nodes: No enlarged lymph nodes. Bones: Scoliosis and degenerative changes are seen. No evidence of compression fracture. Upper abdomen: Unremarkable. Soft tissues: Right mastectomy. IMPRESSION: No new infiltrates in right middle lobe and lingula as well as anteroinferior right lower lobe. Stable appearance of bronchiectasis and atelectasis in the right middle lobe and lingula. RADIATION DOSE DELIVERED: 124.76mGy.cm Total DLP 124.76mGy.cm Total DLP DATA REPOSITORY: All CT scans at this facility are submitted to the National Radiology Data Registry (NRDR) Dose Index Registry (DIR) with the [employer] ([employer]). RADIATION OPTIMIZATION: All CT scans at this facility use at least one of these dose optimization te chniques: automated exposure control; mA and/or kV adjustment per patient size (includes targeted exa ms where dose is matched to clinical indication); or iterative reconstruction.
== END 2023-12-29 02:58 ==
LOC: DI 02:38
PROVIDERS: PCP Nurse Practitioner Family; Visit Provider Internal Medicine Critical Care Medicine
DX: J47.9 Bronchiectasis, uncomplicated (principal)
CPT/HCPCS: 71250

== ENCOUNTER 2023-12-30 08:32 | Outpatient (REF) | payer MEDICARE, SELFPAY ==
[2024-02-22 11:22] LABS: AFB Culture Result See Comments
== END 2023-12-30 08:33 | disposition home or self-care (01) ==
LOC: LBN 08:32
PROVIDERS: Internal Medicine Critical Care Medicine; PCP Nurse Practitioner Family; Visit Provider Student in an Organized Health Care Education/Training Program
DX: J47.9 Bronchiectasis, uncomplicated (principal)
CPT/HCPCS: 87116; 87206

== ENCOUNTER → 2024-01-10 12:56 | Outpatient (BNVA) | payer MEDICARE, SELFPAY | PROVIDERS: PCP Nurse Practitioner Family; Referring Provider Nurse Practitioner Family; Visit Provider Internal Medicine | DX: J44.9 Chronic obstructive pulmonary disease, unspecified (principal); J45.909 Unspecified asthma, uncomplicated; J47.9 Bronchiectasis, uncomplicated; L40.50 Arthropathic psoriasis, unspecified; J31.0 Chronic rhinitis; Z87.891 Personal history of nicotine dependence; Z87.01 Personal history of pneumonia (recurrent) | CPT/HCPCS: 99215 ==

== ENCOUNTER 2024-01-26 02:59 | Outpatient (CLI) | payer MEDICARE, SELFPAY ==
[2024-01-27 09:01] LABS: IgE 4 IU/mL (<158)
[2024-01-27 19:07] LABS: Myeloperoxidase Ab IgG 4.5 U (>=0.4); Proteinase 3 Ab (PR3) <0.2 U
[2024-02-11 03:02] LABS: Result Summary NEGATIVE; Specimen WB Whole Blood
== END 2024-01-26 03:00 | disposition home or self-care (01) ==
LOC: LBO 02:59
PROVIDERS: PCP Nurse Practitioner Family; Visit Provider Internal Medicine
DX: J47.9 Bronchiectasis, uncomplicated (principal); J45.909 Unspecified asthma, uncomplicated; Z87.891 Personal history of nicotine dependence; J44.9 Chronic obstructive pulmonary disease, unspecified
CPT/HCPCS: 36415; 81220; 81222; 82784; 82785; 82787; 83516

== ENCOUNTER 2024-01-30 02:28 | Outpatient (CLI) | payer MEDICARE, SELFPAY ==
--- NOTE | 2024-01-30 | DI.DEXA_ITS ---
Exam(s) XR DEXA BONE DENSITY W/WO ZELDA EXAM: XR DEXA BONE DENSITY W/WO ZELDA CLINICAL HISTORY: AGE RELATED OSTEOPOROSIS W/O FRACTURE, M81.8 TECHNIQUE: Hologic Horizon C densitometer analysis of left hip and lumbar spine. Lateral survey im age of the thoracic and lumbar spine. COMPARISON: CR XR DEXA BONE DENSITY W/WO ZELDA from 12/25/[address] CHEST WO from 10/19/2023, 2005 and 2008 FINDINGS: Lateral view of the thoracic and lumbar spine shows no evidence of compression fractures. Scoliosi s. Bone mineral density measurements of the lumbar spine correspond to a total T-score of -1.5, in the osteopenic range. This is not significantly changed from prior exams. Bone mineral density measurements of the left hip correspond to a total T-score of -2.0. This is no t significantly changed from 2020 but represents a 14.7 percent decrease when compared with 2005. Th e femoral neck T-score is -2.4, in the osteopenic range. . The forearm bone mineral density measurements are not performed due to history of bilateral wrist fra ctures. IMPRESSION: Osteopenia of the lumbar spine and left hip.
== END 2024-01-30 02:48 ==
LOC: DI 02:28
PROVIDERS: PCP Nurse Practitioner Family; Visit Provider Internal Medicine Rheumatology
DX: M81.8 Other osteoporosis without current pathological fracture (principal); Z13.820 Encounter for screening for osteoporosis
CPT/HCPCS: 77080

== ENCOUNTER 2024-02-16 03:04 | Outpatient (CLI) | payer MEDICARE, SELFPAY ==
[2024-02-16 09:11] LABS: Anion Gap 5.1 mmol/L (3-11); BUN 14 mg/dL (7-18); CO2 33.9 mmol/L (21.0-32.0); CREATININE 0.9 mg/dL (0.55-1.02); Calcium 8.6 mg/dL (8.5-10.1); Chloride 105 mmol/L (98-107); Glucose 99 mg/dL (74-106); Potassium 3.6 mmol/L (3.5-5.1); Sodium 144 mmol/L (136-145); Vitamin D 25 Total 35.1 ng/mL (30-100)
== END 2024-02-16 03:05 | disposition home or self-care (01) ==
LOC: LBO 03:04
PROVIDERS: PCP Nurse Practitioner Family; Visit Provider Internal Medicine Rheumatology
DX: M81.8 Other osteoporosis without current pathological fracture (principal)
CPT/HCPCS: 36415; 80048; 82306

== ENCOUNTER 2024-02-20 01:49 | Outpatient (CLI) | payer MEDICARE, SELFPAY ==
--- NOTE | 2024-02-20 06:45 | DI.MAMMO_ITS ---
Exam(s) MG MAMMO SCREENING 60 MIN DUR EXAM: MG MAMMO SCREENING 60 MIN DUR CLINICAL HISTORY: breast cancer screening,PERSONAL H/O BREAST CA,Z85.3,Z12.31. TECHNIQUE: Unilateral left full field digital CC and MLO mammographic images were obtained with 3D t omosynthesis and utilizing computer aided detection (CAD). Been prior right mastectomy. COMPARISON: Prior mammograms were reviewed. FINDINGS: There has been no significant change in the appearance and distribution of the fibroglandular tissue. There are no CAD designations. There are no new spiculated masses nor new malignant appearing microcalcification groups. Asymmetric density towards the upper outer unchanged least 2017. There is no significant architectural distortion nor skin thickening-retraction. IMPRESSION: No radiographic evidence of malignancy. BI-RADS Category 1 - Negative Breast Density - Category B - Scattered areas of fibroglandular density Breast density Category C or D implies that the patient has dense breast tissue. Dense breast tissue can make it harder to find cancer on a mammogram. Dense breast tissue is also associated with an incr eased risk of breast cancer. This information about the result of the mammogram report was provided to the patient to raise their awareness. Use this report when you speak with the patient about their risks for breast cancer, which includes their family history. At that time, you may recommend additional screening tests (Ultrasoun d or MRI) as these tests may add significant information. A negative radiographic report should not delay biopsy if a dominant or clinically suspicious mass is present. Up to ten percent of cancers are not identified on mammography. A negative report may reinforce clinical impression. Adenosis and dense breasts may obscure an underlying neoplasm. False positive reports average 6 to 10%. Patient will receive a letter notifying them of these results.
== END 2024-02-20 02:09 ==
LOC: DI 01:49
PROVIDERS: PCP Nurse Practitioner Family; Visit Provider Nurse Practitioner Family
DX: Z85.3 Personal history of malignant neoplasm of breast (principal); Z12.31 Encounter for screening mammogram for malignant neoplasm of breast
CPT/HCPCS: 77063; 77067

== ENCOUNTER 2024-03-02 01:26 | Outpatient (RCR) | payer MEDICARE, SELFPAY ==
[2024-03-02] MEDS: Denosumab 60 MG/ML SYR SC (11:01)
== END 2024-03-31 23:59 | disposition home or self-care (01) ==
LOC: INF 01:26
PROVIDERS: PCP Nurse Practitioner Family; Visit Provider Family Medicine
DX: M81.8 Other osteoporosis without current pathological fracture (principal)
CPT/HCPCS: 96372; J0897

== ENCOUNTER 2024-03-04 18:10 | Emergency (ER) | payer MEDICARE, SELFPAY ==
[2024-03-04 18:13] VITALS: BP 140/63; PULSE 90; RESP 16; TEMP 37.2; O2SAT 97
--- NOTE | 2024-03-04 18:30 | W.ED.GENAD ---
Discharge Plan Disposition Patient Disposition: Home Condition: Stable Discharge Details Clinical Impression: Concussion syndrome Primary Care Provider: Cass Rogers ED Provider: Marc Stern Home Meds and New Rx's Prescriptions: Continued fluticasone propionate [Flonase Allergy Relief] 50 mcg/actuation spray,suspension 1 spray intranasal DAILY Rx Instructions: administer into each nostril Zyrtec 10 mg capsule 10 mg PO DAILY multivitamin Tablet 1 tab PO DAILY calcium citrate 200 mg (950 mg) tablet 600 mg PO BID naproxen sodium [Aleve] 220 mg capsule 220 mg PO BID PRN albuterol sulfate 90 mcg/actuation HFA aerosol inhaler 2 puff inhalation Q6H PRN (Reason: shortness of breath or wheezing) Qty: 6.7 3RF sodium chloride [NebuSal] 3 % solution for nebulization 4 ml inhalation Q8H PRN (Reason: secretions) Qty: 750 2RF Prolia 60 mg/mL syringe 60 mg subcut ONCE Discharge Instructions Instructions: Concussion, Adult ED Additional Instructions: You were seen in the emergency department for hitting the top of your head on a delivery box, you have bit of a scalp hematoma that should improve with ice, you have some pain and strain behind the eyes consistent with a mild concussion, you have no risk factors for intracranial bleeding including anticoagulants or neurological abnormalities. Please observe behaviors for the next few hours for any coordination difficulties, acting intoxicated or memory issues repetitive questioning, return for CT at that time but I think you do have mild concussion. Please take 650 mg of Tylenol every 6 hours, avoid taking NSAIDs like Aleve and ibuprofen for the first 24 to 48 hours of concussion. Referrals: Cass Rogers NP [Primary Care Provider] - HPI General Date/Time Provider Initiated Documentation: 03/04/24 18:20. HPI Narrative: 68 year-old female presents to ED today by POV/ambulating with a chief complaint of blunt head injury- hit the top of her head on a delivery box while bending over- has an egg on top of her head with onset 2.5 hours prior to arrival. Quality described as feels a little bit of queasiness behind her eyes with a mild headache, no radiation to raccoon eyes, dizziness, post episode vomiting or seizure activity, repetitive questioning, alteration from baseline, visual changes. Severity is described as mild to moderate. Palliating factors include had some ice on her scalp hematoma with some relief. Provoking factors include nothing specific. Patient not anticoagulated. Related Data Home Medications ?Medication ?Instructions ?Recorded ?Confirmed cetirizine 10 mg capsule (Zyrtec) 10 mg PO DAILY 11/17/18 03/04/24 multivitamin 1 tab PO DAILY 09/20/22 03/04/24 calcium citrate 600 mg PO BID 12/07/22 03/04/24 naproxen sodium 220 mg capsule 220 mg PO BID PRN 10/10/23 03/04/24 (Aleve) albuterol sulfate 90 mcg/actuation 2 puff inhalation Q6H PRN 12/07/23 03/04/24 aerosol inhaler shortness of breath or wheezing #6.7 grams fluticasone propionate 50 1 spray intranasal DAILY 01/11/24 03/04/24 mcg/actuation nasal spray,suspension (Flonase Allergy Relief) sodium chloride 3 % for 4 ml inhalation Q8H PRN secretions 02/14/24 03/04/24 nebulization (NebuSal) #750 mL denosumab 60 mg/mL subcutaneous 60 mg subcut ONCE 03/04/24 03/04/24 syringe (Prolia) Previous Rx's ?Medication ?Instructions ?Recorded albuterol sulfate 90 mcg/actuation 2 puff inhalation Q6H PRN 12/07/23 aerosol inhaler shortness of breath or wheezing #6.7 grams sodium chloride 3 % for 4 ml inhalation Q8H PRN secretions 02/14/24 nebulization (NebuSal) #750 mL Allergies Allergy/AdvReac Type Severity Reaction Status Date / Time cinoxate Allergy Mild hives Verified 03/04/24 18:17 homosalate Allergy Mild Hives Verified 03/04/24 18:17 octinoxate Allergy Mild Hives Verified 03/04/24 18:17 oxybenzone Allergy Mild Hives Verified 03/04/24 18:17 padimate O Allergy Mild FROM Verified 03/04/24 18:17 SUNBLOCK titanium Allergy Mild Hives Verified 03/04/24 18:17 ANIMAL DANDER Allergy Mild CONGESTION Uncoded 03/04/24 18:17 General Stated Complaint: HeadInjury MARAH: 4 Review of Systems All systems reviewed & are unremarkable except as noted in HPI and below Exam Narrative Exam Narrative: GENERAL APPEARANCE: Well-nourished, non-toxic, awake and alert, atraumatic, no acute distress. SKIN: Warm, pink, dry, intact, without rashes/lesions/ulcerations. HEAD: Normocephalic, atraumatic, normal hair distribution for gender/age. EYES: Normal conjunctiva, no exudates on lids/lashes, EOMs intact without nystagmus. ENT: Nares patent, no circumoral cyanosis, no facial swelling NECK: Supple, trachea midline, painless cervical ROM. LUNGS/CHEST: Non-labored respirations, normal A/P diameter, symmetrical expansion, no chest wall deformity HEART (CV/PV): No peripheral edema, no JVD. ABDOMEN: Soft, non-distended, no guarding. MSK: Normal ROM, no swelling/deformity to bilateral UEs or LEs, moving all extremities without weakness, no cyanosis, spine midline without tenderness, normal curvature. NEURO: Mental Status AAOx4 - alert to person, place, time, events No facial droop, no forehead involvement. Motor: No focal weakness - strength 5/5 in bilateral UEs and LEs, proximal and distal, symmetric. Sensory: sensation intact to light touch globally. Gait normal: patient ambulated without ataxia into ED room. PSYCH: euthymic, cooperative, pleasant, appropriate speech Course Vital Signs Vital signs: Vital Signs Temperature 37.2 C 03/04/24 18:13 Pulse 90 03/04/24 18:13 Respiratory Rate 16 03/04/24 18:13 Blood Pressure 140/63 03/04/24 18:13 Pulse Oximetry 97 03/04/24 18:13 Temperature 37.2 C 03/04/24 18:13 Pulse 90 03/04/24 18:13 Respiratory Rate 16 03/04/24 18:13 Respiratory Effort Normal 03/04/24 18:19 Respiratory Depth Normal 03/04/24 18:19 Respiratory Pattern Normal 03/04/24 18:19 Blood Pressure 140/63 03/04/24 18:13 Pulse Oximetry 97 03/04/24 18:13 Pain Level 2 03/04/24 18:13 Medical Decision Making This dictation utilizes [id number] dictation software and may contain unedited grammatical errors. 68 year-old female presents to ED today by POV/ambulating with a chief complaint of blunt head injury- hit the top of her head on a delivery box while bending over- has an egg on top of her head with onset 2.5 hours prior to arrival. Quality described as feels a little bit of queasiness behind her eyes with a mild headache, no radiation to raccoon eyes, dizziness, post episode vomiting or seizure activity, repetitive questioning, alteration from baseline, visual changes. Severity is described as mild to moderate. Palliating factors include had some ice on her scalp hematoma with some relief. Provoking factors include nothing specific. Patients' medical history: Prediabetes, aortic insufficiency, history of breast cancer, asthma. Family and social history: Noncontributory. Pertinent exam findings / vital signs include minor scalp hematoma at the crown of the head, no nystagmus with EOM testing, no Head sign or raccoon eyes, mentating normally. Differential / pathologies of concern include concussion, unlikely intracranial hemorrhage. Diagnostic studies of: -Discussed Lebanese head CT rules, the only risk factors the patient's age over 65 and the mechanism was not severe and it has been over 2 hours since incident I do not feel it is warranted at this time. Interventions of: -650 mg Tylenol. ED Course/Assessment/Plan: 68-year-old female suffered a minor blow to the head while she was bending over and coming up and striking the top of her head on a delivery box, causing a small scalp hematoma. She has no neurologic abnormalities and has been about 2.5 hours since incident, no post episode vomiting and believes she has a mild concussion, I did provide Tylenol and counseled her on strict return criteria for any worsening neurological abnormalities. Findings not consistent with intracranial hemorrhage. Disposition of concussion syndrome. Patient verbalized understanding of the plan and return to ED criteria and engaged in shared decision making. Medical Records Medical records reviewed: Yes I reviewed the patient's medical records. Quality:SDOH Health Related Social Needs: No Data to Display PFSH All Active Problems (Updated 03/04/24 @ 18:32 by DEBBIE Gomez) Concussion syndrome (Acute) Sinus congestion (Acute) Bronchiectasis (Acute) Recurrent pneumonia (Acute) Abnormal chest CT (Acute) Aspiration pneumonia (Acute) Elevated antinuclear antibody (BOB) level (Chronic) Elevated double-stranded DNA Contact dermatitis (Acute) Chest pain (Acute) Left knee pain (Acute) Osteoporosis (Chronic) Skin lesion (Acute) Thyroid nodule (Acute) 11/2020- rec repeat US in 6 months 06/2021- 2 on right, one left- rec US 6 months Aortic stenosis (Chronic) followed by cardiology [id number] , EF-60% Rhinitis (Acute) Asthma (Acute) Non-toxic multinodular goiter (Acute 12/05/12) Psoriatic arthritis (Acute 11/11/17) Minimal symptoms not seeing rheum regularly Medical History Prediabetes Breast cancer Family history of ischemic heart disease Cholelithiasis 11/19- cholecystectomy [facility] Aortic insufficiency Pleural effusion Atrophic vaginitis (12/17/11) Family history of GI malignancy colon cancer in mother Hx of breast cancer (12/17/11) s/p tamoxifen [id number], per pt recollection right breast Idiopathic scoliosis Skin tag of vaginal mucosa (02/23/16) seen on speculum exam, friable. Surgical History History of gynecological procedure History of mastectomy Status post breast lumpectomy Endometrial Biopsy 09/06/14; [facility] Breast, Mastectomy (12/03/02) Dr Polo Lopez (R) Breast, Lumpectomy 1989,10/31/02 Family History (Updated 12/14/23 @ 14:39 by Rosalie Gale) Mother , 43 Colon cancer Liver cancer Father , 80 Bile duct cancer Sister Heart disease Heart-lung transplant recipient Cancer Brother Lupus Prostate cancer Stroke Heart disease stent to heart Cancer Lung Brother , 60 Heart disease of massive [place] at age 60, very active runner, autopsy showed Aorta with narrowing, CAD and valve disease Maternal Grandfather , 80s Skin cancer Leukemia Paternal Grandfather , 65 Heart disease Maternal Grandmother , 96 Stroke Paternal Grandmother , 97 No problems noted. Maternal Aunt Breast cancer Pancreatic cancer Son No problems noted. Son No problems noted. Daughter No problems noted. Social History (Updated 12/14/23 @ 14:36 by Rosalie Gale) Smoking/Tobacco Use Status: Never Second Hand Exposure: Yes Smoking risk assessment performed?: Yes Alcohol Intake: current Alcohol Intake frequency: a few times a week Alcohol type: beer and wine Drug use: Never Substance use type: does not use Counseling given: No Adopted: No Caregiver/Support person: No Household members: spouse and children Housing: house Number of Children: 3 number of grandchildren: 1 Communication Needs: Hard of Hearing Education Level: college Details: BS Do you need help understanding health information?: Rarely 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 Pets and animals: No Sexually active: No Do you think of yourself as: straight/heterosexual Current gender identity: female What is your relationship status?: How often do you talk on the phone with friends or family?: three or more times per week How often do you get together with friends or relatives?: twice per week How often do you attend anabaptist or sikh services?: 4 or more times per year Do you belong to any clubs or organized social groups?: yes Panel score (0-1 are the most socially isolated patients): 4 What type of physical activity do you participate in: walking, bicycling and other Details: Planks, Kay[employer] Duration: 45-60 minutes/day Frequency: 5-6 times per week Melvina/Gnosticist: Yazidi Special melvina needs: No Seatbelt use: always Helmet use: Yes Helmet use: always Drive intox or ride w/intox mobile lounge driver or operator: No Firearms in home: No Do you feel safe at home: Yes Do you feel safe in your relationship?: Yes Victim of physical abuse: No Victim of emotional abuse: No Victim of sexual abuse: No Would you like helpful sources: No
[2024-03-04] MEDS: Acetaminophen 325 MG TAB 650 MG PO (18:44)
== END 2024-03-04 18:53 | disposition home or self-care (01) ==
LOC: ER 18:55
PROVIDERS: Emergency Provider Physician Assistant; PCP Nurse Practitioner Family
DX: F07.81 Postconcussional syndrome (principal); S00.03XA Contusion of scalp, initial encounter; W22.09XA Striking against other stationary object, initial encounter; Y93.89 Activity, other specified; Y92.89 Other specified places as the place of occurrence of the external cause
CPT/HCPCS: 99283

== ENCOUNTER → 2024-03-12 08:46 | Outpatient (BNVA) | payer MEDICARE, SELFPAY | PROVIDERS: PCP Nurse Practitioner Family; Referring Provider Nurse Practitioner Family; Visit Provider Physician Assistant Surgical | DX: J47.9 Bronchiectasis, uncomplicated (principal); Z87.01 Personal history of pneumonia (recurrent) | CPT/HCPCS: 99214 ==

== ENCOUNTER 2024-04-30 14:00 | Outpatient (RCR) | payer MEDICARE, SELFPAY | END 2024-05-01 23:59 | disposition home or self-care (01) | LOC: PRC 14:00 | PROVIDERS: PCP Nurse Practitioner Family; Referring Provider Student in an Organized Health Care Education/Training Program; Visit Provider Student in an Organized Health Care Education/Training Program | DX: J47.0 Bronchiectasis with acute lower respiratory infection (principal) | CPT/HCPCS: 94626 ==

== ENCOUNTER 2024-05-25 14:00 | Outpatient (RCR) | payer MEDICARE, SELFPAY | END 2024-06-01 23:59 | disposition home or self-care (01) | LOC: PRC 14:00 | PROVIDERS: PCP Nurse Practitioner Family; Referring Provider Student in an Organized Health Care Education/Training Program; Visit Provider Student in an Organized Health Care Education/Training Program | DX: Z51.89 Encounter for other specified aftercare (principal); Z85.3 Personal history of malignant neoplasm of breast; U07.1 COVID-19; J47.0 Bronchiectasis with acute lower respiratory infection | CPT/HCPCS: 94626 ==

== ENCOUNTER 2024-06-25 14:00 | Outpatient (RCR) | payer MEDICARE, SELFPAY | END 2024-06-29 23:59 | disposition home or self-care (01) | LOC: PRC 14:00 | PROVIDERS: PCP Nurse Practitioner Family; Referring Provider Student in an Organized Health Care Education/Training Program; Visit Provider Student in an Organized Health Care Education/Training Program | DX: J47.0 Bronchiectasis with acute lower respiratory infection (principal); I35.1 Nonrheumatic aortic (valve) insufficiency; Z51.89 Encounter for other specified aftercare | CPT/HCPCS: 94626 ==

== ENCOUNTER 2024-07-02 15:56 | Emergency (ER) | payer MEDICARE, SELFPAY ==
[2024-07-02 16:00] VITALS: BP 135/72; PULSE 77; RESP 20; TEMP 36.2; O2SAT 97
[2024-07-02 16:04] VITALS: BP 135/72; PULSE 77; RESP 20; TEMP 36.2; O2SAT 97
--- NOTE | 2024-07-02 16:17 | ED.GENADUL_ITS ---
Discharge Plan Disposition Patient Disposition: Home Condition: Good Discharge Details Clinical Impression: Subconjunctival hemorrhage Primary Care Provider: Cass Rogers ED Provider: Kira Tierney Home Meds and New Rx's Prescriptions: No Action fluticasone propionate [Flonase Allergy Relief] 50 mcg/actuation spray,suspension 1 spray intranasal DAILY Qty: 16 12RF Rx Instructions: administer into each nostril Zyrtec 10 mg capsule 10 mg PO DAILY multivitamin Tablet 1 tab PO DAILY calcium citrate 200 mg (950 mg) tablet 600 mg PO BID naproxen sodium [Aleve] 220 mg capsule 220 mg PO BID PRN albuterol sulfate 90 mcg/actuation HFA aerosol inhaler 2 puff inhalation Q6H PRN (Reason: shortness of breath or wheezing) Qty: 6.7 3RF sodium chloride [NebuSal] 3 % solution for nebulization 4 ml inhalation Q8H PRN (Reason: secretions) Qty: 750 2RF Paxlovid 300 mg (150 mg x 2)-100 mg tablets,dose pack See Rx Instructions PO .COMPLEX Qty: 30 0RF Rx Instructions: take TWO 150 mg tablets of nirmatrelvir with ONE 100 mg tablet of ritonavir twice daily for 5 days PO Prolia 60 mg/mL syringe 60 mg subcut ONCE Discharge Instructions Instructions: Subconjunctival hemorrhage Additional Instructions: Please follow-up with Boris Van in [place] tomorrow morning at 8:40 AM. I have confirmed your appointment for you. Avoid rubbing at your eye. You may use a cool compress for comfort as needed. Return to emergency care if develop new vision changes, new change in eye pain, severe headache, new vomiting, or if you are very worried and need to be rechecked again immediately Referrals: [facility] [OTHER] - Discharge Data Discharge Date/Time-TO BE ENTERED AT DEPARTURE: 07/02/24 17:58 HPI General Date/Time Provider Initiated Documentation: 07/02/24 16:05 . HPI Narrative: Maria E is a 68 year old female who presents to the emergency department today for evaluation of subconjunctival hemorrhage in L eye. She reports that she was at a pulmonary appointment this afternoon, got out to the car and noticed a gritty/foreign body sensation in her eye. When she looked in the mirror she noticed a large area of bleeding, this is larger than previous subconjunctival hemorrhage that she has had in the past. No known trauma, vision changes, headache, other pain to the eye, unusual nosebleeds or rectal bleeding, palpitations, chest pain. She is not on any anticoagulation. Past medical history is significant for [] Physical exam remarkable for large subconjunctival hemorrhage to the medial aspect of the left eye covering approximately 50% of sclera. PERRL, EOMs intact. No photophobia. No pain with palpation around eye. Patient is no acute distress. Fluorescein stain performed, no fluorescein uptake noted; negative Rafi sign. Visual acuity performed, 20/25 bilaterally. Unclear etiology of subconjunctival hemorrhage, no red flags concerning for acute platelet dysfunction. No report of trauma. I was able to reach [facility], patient has a follow-up appointment scheduled for tomorrow morning at 8:40 AM. Reviewed discharge instructions with patient, including symptomatic management and red flags indicating need for return to emergency care. Related Data Home Medications ?Medication ?Instructions ?Recorded ?Confirmed cetirizine 10 mg capsule (Zyrtec) 10 mg PO DAILY 11/17/18 07/02/24 multivitamin 1 tab PO DAILY 09/20/22 07/02/24 calcium citrate 600 mg PO BID 12/07/22 07/02/24 naproxen sodium 220 mg capsule 220 mg PO BID PRN 10/10/23 07/02/24 (Aleve) albuterol sulfate 90 mcg/actuation 2 puff inhalation Q6H PRN 12/07/23 07/02/24 aerosol inhaler shortness of breath or wheezing #6.7 grams sodium chloride 3 % for 4 ml inhalation Q8H PRN secretions 02/14/24 07/02/24 nebulization (NebuSal) #750 mL denosumab 60 mg/mL subcutaneous 60 mg subcut ONCE 03/04/24 07/02/24 syringe (Prolia) fluticasone propionate 50 1 spray intranasal DAILY #16 grams 04/11/24 07/02/24 mcg/actuation nasal spray,suspension (Flonase Allergy Relief) nirmatrelvir 300 mg (150 mg See Rx Instructions PO .COMPLEX 05/09/24 07/02/24 x2)-ritonavir 100 mg tablet,dose #30 tabs pack (Paxlovid) Previous Rx's ?Medication ?Instructions ?Recorded albuterol sulfate 90 mcg/actuation 2 puff inhalation Q6H PRN 12/07/23 aerosol inhaler shortness of breath or wheezing #6.7 grams sodium chloride 3 % for 4 ml inhalation Q8H PRN secretions 02/14/24 nebulization (NebuSal) #750 mL fluticasone propionate 50 1 spray intranasal DAILY #16 grams 04/11/24 mcg/actuation nasal spray,suspension (Flonase Allergy Relief) nirmatrelvir 300 mg (150 mg See Rx Instructions PO .COMPLEX 05/09/24 x2)-ritonavir 100 mg tablet,dose #30 tabs pack (Paxlovid) Allergies Allergy/AdvReac Type Severity Reaction Status Date / Time cinoxate Allergy Mild hives Verified 07/02/24 16:05 homosalate Allergy Mild Hives Verified 07/02/24 16:05 octinoxate Allergy Mild Hives Verified 07/02/24 16:05 oxybenzone Allergy Mild Hives Verified 07/02/24 16:05 padimate O Allergy Mild FROM Verified 07/02/24 16:05 SUNBLOCK titanium Allergy Mild Hives Verified 07/02/24 16:05 ANIMAL DANDER Allergy Mild CONGESTION Uncoded 07/02/24 16:05 General Stated Complaint: EyeProblem MARAH: 3 Review of Systems Narrative: See HPI Exam Const General: cooperative, healthy appearing, comfortable, no acute distress and well developed Nutritional Appearance: average body habitus Orientation: alert and oriented x3 HENMT Head: normal to inspection, no Head's sign, no raccoon eyes and No periorbital ecchymosis Ears: hearing grossly normal bilaterally General nose exam: external nose normal Face and sinus: normal facial exam Eyes Eyelids: eyelids normal Sclera: scleral abnormality left hemorrhage (medial aspect) Pupils: PERRL EOM: EOM intact bilaterally Eyes/upper lids images: 2 1. subconjunctival hemorrhage Resp Effort & Inspection: normal respiratory effort and able to speak in complete sentences Skin General skin exam: no rashes or lesions noted Course Vital Signs Vital signs: Vital Signs Temperature 36.2 C L 07/02/24 16:00 Pulse 77 07/02/24 16:00 Respiratory Rate 20 07/02/24 16:00 Blood Pressure 135/72 07/02/24 16:00 Pulse Oximetry 97 07/02/24 16:00 Temperature 36.2 C L 07/02/24 16:04 Pulse 77 07/02/24 16:04 Respiratory Rate 20 07/02/24 16:04 Blood Pressure 135/72 07/02/24 16:04 Blood Pressure Position Sitting 07/02/24 16:04 Pulse Oximetry 97 07/02/24 16:04 Oxygen Delivery Method Room Air 07/02/24 16:04 Oxygen Flow Rate 0 07/02/24 16:04 Medical Decision Making Quality:SDOH Health Related Social Needs: 2 No Data to Display PFSH All Active Problems (Updated 07/02/24 @ 17:37 by Kira Avery) Subconjunctival hemorrhage (Acute) Sinus congestion (Acute) Bronchiectasis (Acute) Recurrent pneumonia (Acute) Abnormal chest CT (Acute) Aspiration pneumonia (Acute) Elevated antinuclear antibody (BOB) level (Chronic) Elevated double-stranded DNA Contact dermatitis (Acute) Chest pain (Acute) Left knee pain (Acute) Osteoporosis (Chronic) Skin lesion (Acute) Thyroid nodule (Acute) 11/2020- rec repeat US in 6 months 06/2021- 2 on right, one left- rec US 6 months Aortic stenosis (Chronic) followed by cardiology [id number] , EF-60% Rhinitis (Acute) Asthma (Acute) Non-toxic multinodular goiter (Acute 12/05/12) Psoriatic arthritis (Acute 11/11/17) Minimal symptoms not seeing rheum regularly Medical History Prediabetes Breast cancer Family history of ischemic heart disease Cholelithiasis 11/19- cholecystectomy [facility] Aortic insufficiency Pleural effusion Atrophic vaginitis (12/17/11) Family history of GI malignancy colon cancer in mother Hx of breast cancer (12/17/11) s/p tamoxifen [id number], per pt recollection right breast Idiopathic scoliosis Skin tag of vaginal mucosa (02/23/16) seen on speculum exam, friable. Surgical History History of gynecological procedure History of mastectomy Status post breast lumpectomy Endometrial Biopsy 09/06/14; [facility] Breast, Mastectomy (12/03/02) Dr Polo Lopez (R) Breast, Lumpectomy 1989,10/31/02 Family History (Updated 12/14/23 @ 14:39 by Rosalie Gale) Mother , 43 Colon cancer Liver cancer Father , 80 Bile duct cancer Sister Heart disease Heart-lung transplant recipient Cancer Brother Lupus Prostate cancer Stroke Heart disease stent to heart Cancer Lung Brother , 60 Heart disease of massive NM at age 60, very active runner, autopsy showed Aorta with narrowing, CAD and valve disease Maternal Grandfather , 80s Skin cancer Leukemia Paternal Grandfather , 65 Heart disease Maternal Grandmother , 96 Stroke Paternal Grandmother , 97 No problems noted. Maternal Aunt Breast cancer Pancreatic cancer Son No problems noted. Son No problems noted. Daughter No problems noted. Social History (Updated 12/14/23 @ 14:36 by Rosalie Gale) Smoking/Tobacco Use Status: Never Second Hand Exposure: Yes Smoking risk assessment performed?: Yes Alcohol Intake: current Alcohol Intake frequency: a few times a week Alcohol type: beer and wine Drug use: Never Substance use type: does not use Counseling given: No Adopted: No Caregiver/Support person: No Household members: spouse and children Housing: house Number of Children: 3 number of grandchildren: 1 Communication Needs: Hard of Hearing Education Level: college Details: BS Do you need help understanding health information?: Rarely 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 Pets and animals: No Sexually active: No Do you think of yourself as: straight/heterosexual Current gender identity: female What is your relationship status?: How often do you talk on the phone with friends or family?: three or more times per week How often do you get together with friends or relatives?: twice per week How often do you attend alevism or latter-day services?: 4 or more times per year Do you belong to any clubs or organized social groups?: yes Panel score (0-1 are the most socially isolated patients): 4 What type of physical activity do you participate in: walking, bicycling and other Details: Planks, [employer]ak Duration: 45-60 minutes/day Frequency: 5-6 times per week Melvina/Yazidism: Anglican Special melvina needs: No Seatbelt use: always Helmet use: Yes Helmet use: always Drive intox or ride w/intox 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 operator: No Firearms in home: No Do you feel safe at home: Yes Do you feel safe in your relationship?: Yes Victim of physical abuse: No Victim of emotional abuse: No Victim of sexual abuse: No Would you like helpful sources: No PAWSS Have you Been Recently Intoxicated or Drunk Within the Last 30 days?: No Have you Ever Experienced Previous Episodes of Alcohol Withdrawal?: No Have you ever Experienced Withdrawal Seizures?: No Have you ever Experienced Delirium Tremens(DT)s?: No Have you ever undergone Alcohol Rehabilitation Treatment (i.e, inpt ot outpatient treatment programs)?: No Have you ever Experienced Blackouts?: No Have you ever Combined Alcohol with other Downers within the last 90 days?: No Have you ever Combined Alcohol with any other Substance of Abuse during the last 90 days?: No Positive Blood Alcohol level on Presentation? [PCS.BAL]: No Evidence of Increased Autonomic Activity (i.e. HR>120, tremor, sweating, agitation, nausea)?: No Result: 0
[2024-07-02 17:52] VITALS: BP 147/72; PULSE 81; RESP 16; O2SAT 96
--- NOTE | 2024-07-02 18:45 | NUR.NOTE ---
Faxed Providers note to [facility] [place].
--- NOTE | 2024-07-03 01:04 | NUR.NOTE ---
Patient note faxed to [facility], patient has f/u 07/03/24.Nursing Note:
== END 2024-07-02 17:58 | disposition home or self-care (01) ==
PROVIDERS: Emergency Provider Nurse Practitioner Family; PCP Nurse Practitioner Family
DX: H57.12 Ocular pain, left eye (principal); H11.32 Conjunctival hemorrhage, left eye
CPT/HCPCS: 99283

== ENCOUNTER 2024-08-24 15:01 | Outpatient (RCR) | payer SELFPAY ==
[2024-08-01 15:15] VITALS: BP 141/63; PULSE 72; O2SAT 98
[2024-08-03 15:00] VITALS: BP 131/60; PULSE 90; O2SAT 95
[2024-08-08 15:53] VITALS: BP 117/64; PULSE 83; O2SAT 94
[2024-08-10 15:00] VITALS: BP 137/67; PULSE 88
[2024-08-17 15:09] VITALS: BP 118/62; PULSE 87; O2SAT 94
[2024-08-24 15:06] VITALS: BP 127/59; PULSE 85
== END 2024-08-29 23:59 | disposition home or self-care (01) ==
LOC: CR 15:01
PROVIDERS: PCP Nurse Practitioner Family; Visit Provider Internal Medicine Cardiovascular Disease
DX: R69 Illness, unspecified (principal)

== ENCOUNTER 2024-09-03 02:44 | Outpatient (CLI) | payer MEDICARE, SELFPAY ==
[2024-09-03 10:43] LABS: Anion Gap 6.2 mmol/L (3-11); BUN 14 mg/dL (7-18); CO2 30.8 mmol/L (21.0-32.0); CREATININE 0.8 mg/dL (0.55-1.02); Calcium 9.2 mg/dL (8.5-10.1); Chloride 103 mmol/L (98-107); Estimated GFR 79.71 (mL/min/1.73m2); Glucose 106 mg/dL (74-106); Potassium 4.2 mmol/L (3.5-5.1); Sodium 140 mmol/L (136-145)
== END 2024-09-03 02:45 | disposition home or self-care (01) ==
PROVIDERS: PCP Nurse Practitioner Family; Visit Provider Internal Medicine Rheumatology
DX: M81.0 Age-related osteoporosis without current pathological fracture (principal)
CPT/HCPCS: 36415; 80048

== ENCOUNTER 2024-09-05 01:28 | Outpatient (RCR) | payer MEDICARE, SELFPAY ==
[2024-09-05] MEDS: Denosumab 60 MG/ML SYR SC (13:14)
== END 2024-09-29 23:59 | disposition home or self-care (01) ==
LOC: INF 01:28
PROVIDERS: PCP Nurse Practitioner Family; Visit Provider Family Medicine
DX: M81.0 Age-related osteoporosis without current pathological fracture (principal)
CPT/HCPCS: 96372; J0897

== ENCOUNTER 2024-09-12 20:10 | Emergency (ER) | payer MEDICARE, SELFPAY ==
[2024-09-12 20:14] VITALS: BP 124/66; PULSE 82; RESP 18; TEMP 36.6; O2SAT 93
[2024-09-12 20:59] VITALS: BP 124/66; PULSE 82; RESP 18; TEMP 36.6; O2SAT 93
--- NOTE | 2024-09-12 21:03 | W.ED.GENAD ---
Discharge Plan Disposition Patient Disposition: Home Discharge Details Clinical Impression: CAP (community acquired pneumonia) Primary Care Provider: Cass Rogers ED Provider: Kira Tierney Home Meds and New Rx's Prescriptions: New amoxicillin-pot clavulanate 875-125 mg tablet 1 tab PO Q12H Qty: 10 0RF azithromycin 250 mg tablet 250 mg PO DAILY 4 Days Qty: 4 0RF Rx Instructions: start on day 2 of therapy No Action fluticasone propionate [Flonase Allergy Relief] 50 mcg/actuation spray,suspension 1 spray intranasal DAILY Qty: 16 12RF Rx Instructions: administer into each nostril budesonide-formoterol [Breyna] 80-4.5 mcg/actuation HFA aerosol inhaler 2 puff inhalation BID Qty: 10.2 6RF Zyrtec 10 mg capsule 10 mg PO DAILY multivitamin Tablet 1 tab PO DAILY calcium citrate 200 mg (950 mg) tablet 600 mg PO BID naproxen sodium [Aleve] 220 mg capsule 220 mg PO BID PRN sodium chloride [NebuSal] 3 % solution for nebulization 4 ml inhalation Q8H PRN (Reason: secretions) Qty: 750 2RF albuterol sulfate 90 mcg/actuation HFA aerosol inhaler See Rx Instructions .ROUTE .COMPLEX Qty: 8.5 3RF Dose Instruction: INHALE TWO PUFFS BY MOUTH EVERY 6 HOURS NEEDED FOR SHORTNESS OF BREATH OR WHEEZING Rx Instructions: INHALE TWO PUFFS BY MOUTH EVERY 6 HOURS NEEDED FOR SHORTNESS OF BREATH OR WHEEZING Prolia 60 mg/mL syringe 60 mg subcut ONCE Discharge Instructions Additional Instructions: Please call your primary care provider and carbon grinder first thing in the morning to schedule follow-up appointments. I would like you to be reassessed within the week to make sure you are responding well to antibiotics. You are being treated with 2 antibiotics, azithromycin and Augmentin. Please take both for the full course as prescribed. Continue to take your prescribed inhalers, including your steroid inhaler. Use nebulizers as needed. I recommend that you use Vicks VapoRub and cough drops to help soothe your cough reflex Return to emergency care if you develop new chest pains, difficulty breathing, feeling going to pass out, are unable to hold down your antibiotics, or if you are very worried you need to be rechecked again immediately. Referrals: [facility] [Provider Group] Cass Rogers NP [Primary Care Provider] - [facility] General Date/Time Provider Initiated Documentation: 09/12/24 20:14. [facility] Narrative: Maria E is a 68-year-old female who presents to the emergency department today for evaluation of persistent, convulsive cough. She reports that she has had similar coughs earlier when dealing with pneumonia, they resolved but reoccurred a week ago and has worsened since onset. The cough recurred a week ago and has worsened. The cough is severe and impedes her ability to breathe/catch her breath. Today, she experienced a brief episode of breathlessness with a whooping sound, unrelieved by her inhaler. She reports a fever of 101.6?F on Tuesday, decreased energy, nasal congestion for a week, and a sore throat since Tuesday or Tuesday. She also reports intermittent wheezing, nausea and posttussive emesis. Denies hemoptysis, chest pain, abdominal pain, or ankle swelling. No known recent ill contacts. She does have grandchildren who are vaccinated. Albuterol nebulizer provides some relief from wheezing; last used at 1500 hours today. No recent systemic steroids; previously prescribed prednisone, tolerated well. She is being followed by pulmonology at [facility], last appointment 1 week ago, during which she was prescribed ICS. Past medical history significant for asthma, osteoporosis, and bronchiectasis. Reports she is up-to-date for COVID-19 and flu vaccines. Related Data Home Medications ?Medication ?Instructions ?Recorded ?Confirmed cetirizine 10 mg capsule (Zyrtec) 10 mg PO DAILY 11/17/18 09/12/24 multivitamin 1 tab PO DAILY 09/20/22 09/12/24 calcium citrate 600 mg PO BID 12/07/22 09/12/24 naproxen sodium 220 mg capsule 220 mg PO BID PRN 10/10/23 09/12/24 (Aleve) sodium chloride 3 % for 4 ml inhalation Q8H PRN secretions 02/14/24 09/12/24 nebulization (NebuSal) #750 mL denosumab 60 mg/mL subcutaneous 60 mg subcut ONCE 03/04/24 09/12/24 syringe (Prolia) fluticasone propionate 50 1 spray intranasal DAILY #16 grams 04/11/24 09/12/24 mcg/actuation nasal spray,suspension (Flonase Allergy Relief) albuterol sulfate 90 mcg/actuation See Rx Instructions .Route 09/04/24 09/12/24 aerosol inhaler .COMPLEX #8.5 grams budesonide-formoterol HFA 80 2 puff inhalation BID #10.2 grams 09/04/24 09/12/24 mcg-4.5 mcg/actuation aerosol inhaler (Breyna) amoxicillin 875 mg-potassium 1 tab PO Q12H #10 tabs 09/12/24 clavulanate 125 mg tablet azithromycin 250 mg tablet 250 mg PO DAILY 4 days #4 tabs 09/12/24 Previous Rx's ?Medication ?Instructions ?Recorded sodium chloride 3 % for 4 ml inhalation Q8H PRN secretions 02/14/24 nebulization (NebuSal) #750 mL fluticasone propionate 50 1 spray intranasal DAILY #16 grams 04/11/24 mcg/actuation nasal spray,suspension (Flonase Allergy Relief) albuterol sulfate 90 mcg/actuation See Rx Instructions .Route 09/04/24 aerosol inhaler .COMPLEX #8.5 grams budesonide-formoterol HFA 80 2 puff inhalation BID #10.2 grams 09/04/24 mcg-4.5 mcg/actuation aerosol inhaler (Breyna) amoxicillin 875 mg-potassium 1 tab PO Q12H #10 tabs 09/12/24 clavulanate 125 mg tablet azithromycin 250 mg tablet 250 mg PO DAILY 4 days #4 tabs 09/12/24 Allergies Allergy/AdvReac Type Severity Reaction Status Date / Time cinoxate Allergy Mild hives Verified 09/12/24 20:21 homosalate Allergy Mild Hives Verified 09/12/24 20:21 octinoxate Allergy Mild Hives Verified 09/12/24 20:21 oxybenzone Allergy Mild Hives Verified 09/12/24 20:21 padimate O Allergy Mild FROM Verified 09/12/24 20:21 SUNBLOCK titanium Allergy Mild Hives Verified 09/12/24 20:21 ANIMAL DANDER Allergy Mild CONGESTION Uncoded 09/12/24 20:21 General Stated Complaint: RespSymp MARAH: 4 Review of Systems Narrative: see HPI Exam Narrative Exam Narrative: General Appearance: Normal. Patient is alert and oriented, in no acute distress. Vital signs: Within normal limits. Respiratory: Lungs auscultated. Easy work of breathing, lung sounds clear bilaterally with no rales/rhonchi/wheezes Cardiovascular: Heart examined. Normal heart sounds, regular rate and rhythm Skin: Warm and dry, no rash. Psychiatric: Normal. Course Vital Signs Vital signs: Vital Signs Temperature 36.6 C 09/12/24 20:14 Pulse 82 09/12/24 20:14 Respiratory Rate 18 09/12/24 20:14 Blood Pressure 124/66 09/12/24 20:14 Pulse Oximetry 93 09/12/24 20:14 Temperature 36.6 C 09/12/24 20:14 Temperature Source Oral 09/12/24 20:14 Pulse 82 09/12/24 20:14 Respiratory Rate 18 09/12/24 20:14 Blood Pressure 124/66 09/12/24 20:14 Blood Pressure Position Sitting 09/12/24 20:14 Pulse Oximetry 93 09/12/24 20:14 Oxygen Delivery Method Room Air 09/12/24 20:14 Oxygen Flow Rate 0 09/12/24 20:14 Pain Level 3 09/12/24 20:14 Medical Decision Making Initial Assessment: Maria E is a 68-year-old female presenting with a severe cough, wheezing, and difficulty breathing. She has a history of bronchiectasis and asthma, and recently experienced a fever and sore throat. Differential Diagnosis: - Viral illness: Suspected due to recent symptoms and history. Plan to test for COVID-19, influenza, and RSV. - Pneumonia: Considered due to cough and fever. Plan to order chest x-ray and blood work to rule out. - Asthma exacerbation - Pertussis based on inspiratory whooping and contact with young children Patient does not meet SIRS criteria. ED Course: - Blood work ordered - Chest x-ray ordered - COVID-19, influenza, and RSV tests ordered -Pertussis PCR ordered I independently interpreted the following tests: CBC and BMP reassuring. COVID/flu/RSV negative. Chest x-ray notable for right middle lobe and lingula pneumonia. I did review previous records, including previous pulmonology visits from 03/11/2024, 04/05/2024, and 09/03/2024. Patient does have a history of recurrent pneumonia with H. influenzae isolated. Clinical Impression: Community-acquired pneumonia; outpatient management is appropriate for this patient based on reassuring vital signs and labs. Will treat with Augmentin and azithromycin. As patient has a history of osteoporosis and is currently on ICS, we will hold off on oral steroids at this time and have her continue controller medications as prescribed. Recommend close follow-up with pulmonology Disposition: - Follow-Up: Maria E should follow up with her carbon grinder to discuss the potential need for oral steroids and establish a sick plan. Reviewed discharge instructions with patient, including symptomatic management, antibiotic use, and red flags indicate need for return to emergency care. She voiced agreement with plan of care MDM Components Evaluation: - Number of Differential Diagnoses or Management Options: Viral illness, pneumonia - Amount and Complexity of Data Reviewed: Blood work, chest x-ray, COVID-19, influenza, and RSV tests - Risk of Complication and Morbidity or Mortality: Moderate risk due to history of bronchiectasis and asthma, potential for pneumonia Patient consented to the use of [facility] Imaging Data Radiologic Study: Radiologist's impression: PROCEDURE INFORMATION: Exam: XR Chest Exam date and time: 09/12/2024 9:25 PM Age: 68 years old Clinical indication: Cough TECHNIQUE: Imaging protocol: Radiologic exam of the chest. Views: 2 views. COMPARISON: CT CHEST WO 12/29/2023 7:50 AM FINDINGS: Lungs: Right middle lobe and lingular infiltrates are identified consistent with a pneumonia. Pleural spaces: Unremarkable. No pleural effusion. No pneumothorax. Heart/Mediastinum: Unremarkable. No cardiomegaly. Bones/joints: Dextroscoliosis of thoracic spine. IMPRESSION: Right middle lobe and lingular pneumonia. Continued follow-up to resolution is recommended. Quality:SDOH Health Related Social Needs: No Data to Display PFSH All Active Problems (Updated 09/12/24 @ 22:59 by Kira Avery) CAP (community acquired pneumonia) (Acute) Sinus congestion (Acute) Bronchiectasis (Acute) Recurrent pneumonia (Acute) Abnormal chest CT (Acute) Aspiration pneumonia (Acute) Elevated antinuclear antibody (BOB) level (Chronic) Elevated double-stranded DNA Contact dermatitis (Acute) Chest pain (Acute) Left knee pain (Acute) Osteoporosis (Chronic) Skin lesion (Acute) Thyroid nodule (Acute) 11/2020- rec repeat US in 6 months 06/2021- 2 on right, one left- rec US 6 months Aortic stenosis (Chronic) followed by cardiology [id number] , EF-60% Rhinitis (Acute) Asthma (Acute) Non-toxic multinodular goiter (Acute 12/05/12) Psoriatic arthritis (Acute 11/11/17) Minimal symptoms not seeing rheum regularly Medical History Prediabetes Breast cancer Family history of ischemic heart disease Cholelithiasis 11/19- cholecystectomy [facility] Aortic insufficiency Pleural effusion Atrophic vaginitis (12/17/11) Family history of GI malignancy colon cancer in mother Hx of breast cancer (12/17/11) s/p tamoxifen [id number], per pt recollection right breast Idiopathic scoliosis Skin tag of vaginal mucosa (02/23/16) seen on speculum exam, friable. Surgical History History of gynecological procedure History of mastectomy Status post breast lumpectomy Endometrial Biopsy 09/06/14; [facility] Breast, Mastectomy (12/03/02) Dr Polo Lopez (R) Breast, Lumpectomy 1989,10/31/02 Family History (Updated 12/14/23 @ 14:39 by Rosalie Gale) Mother , 43 Colon cancer Liver cancer Father , 80 Bile duct cancer Sister Heart disease Heart-lung transplant recipient Cancer Brother Lupus Prostate cancer Stroke Heart disease stent to heart Cancer Lung Brother , 60 Heart disease of massive [place] at age 60, very active runner, autopsy showed Aorta with narrowing, CAD and valve disease Maternal Grandfather , 80s Skin cancer Leukemia Paternal Grandfather , 65 Heart disease Maternal Grandmother , 96 Stroke Paternal Grandmother , 97 No problems noted. Maternal Aunt Breast cancer Pancreatic cancer Son No problems noted. Son No problems noted. Daughter No problems noted. Social History (Updated 12/14/23 @ 14:36 by Rosalie Gale) Smoking/Tobacco Use Status: Never Second Hand Exposure: Yes Smoking risk assessment performed?: Yes Alcohol Intake: current Alcohol Intake frequency: a few times a week Alcohol type: beer and wine Drug use: Never Substance use type: does not use Counseling given: No Adopted: No Caregiver/Support person: No Household members: spouse and children Housing: house Number of Children: 3 number of grandchildren: 1 Communication Needs: Hard of Hearing Education Level: college Details: BS Do you need help understanding health information?: Rarely 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 Pets and animals: No Sexually active: No Do you think of yourself as: straight/heterosexual Current gender identity: female What is your relationship status?: How often do you talk on the phone with friends or family?: three or more times per week How often do you get together with friends or relatives?: twice per week How often do you attend zoroastrian or faith services?: 4 or more times per year Do you belong to any clubs or organized social groups?: yes Panel score (0-1 are the most socially isolated patients): 4 What type of physical activity do you participate in: walking, bicycling and other Details: Planks, Kayak Duration: 45-60 minutes/day Frequency: 5-6 times per week Melvina/Hinduism: Holiness Special melvina needs: No Seatbelt use: always Helmet use: Yes Helmet use: always Drive intox or ride w/intox paratransit driver: No Firearms in home: No Do you feel safe at home: Yes Do you feel safe in your relationship?: Yes Victim of physical abuse: No Victim of emotional abuse: No Victim of sexual abuse: No Would you like helpful sources: No
--- NOTE | 2024-09-12 21:30 | DI.RAD_ITS ---
Exam(s) XR CHEST 2V PA LATERAL EXAM: XR CHEST 2V PA LATERAL CLINICAL HISTORY: cough TECHNIQUE: 2D digital imaging was performed of the chest. Two images were obtained. PA and lateral views were obtained. COMPARISON: CR XR CHEST 2V PA LATERAL from 05/05/2023 CR XR CHEST 2V PA LATERAL from 11/22/2023 FINDINGS: MEDIASTINUM: Normal. HEART: Normal. PULMONARY VASCULATURE: Normal. LUNGS: There are persistent bilateral right middle lobe and left lingular opacities. The lungs appea r hyperinflated. PLEURAL SPACE: No pleural effusion or pneumothorax. BONE:Within normal limits for the patient's age. There is a right convex thoracic scoliosis again no padmini. OTHER FINDINGS:Normal. IMPRESSION: 1. Persistent right middle lobe and left lingular opacities. Recurrent pneumonia versus scarring/ate lectasis. Please correlate clinically. 2. The preliminary [facility] report was reviewed. DATA REPOSITORY: RADIATION DOSE DELIVERED:
[2024-09-12 22:18] LABS: COVID-19 PCR Negative (Negative); Influenza A PCR Negative (Negative); Influenza B PCR Negative (Negative); RSV PCR Negative (Negative)
[2024-09-12 22:20] LABS: Abs Immature Grans 0.02 10^3/uL (0.0-0.06); HCT 37.4 % (36.0-46.0); HGB 12.5 g/dL (11.2-15.7); MCH 29.6 pg (27.0-33.0); MCHC 33.4 % (32.0-36.0); MCV 88 fL (80-95); MPV 8.8 fL (8.0-11.0); Platelet Count 306 10^3/uL (130-400); RBC 4.23 10^6/uL (3.93-5.22); RDW 12.3 % (11.7-14.6); WBC 7.07 10^3/uL (4.4-10.8)
[2024-09-12 22:33] LABS: Anion Gap 7.1 mmol/L (3-11); BUN 11 mg/dL (7-18); CO2 29.9 mmol/L (21.0-32.0); CREATININE 0.8 mg/dL (0.55-1.02); Calcium 8.9 mg/dL (8.5-10.1); Chloride 98 mmol/L (98-107); Estimated GFR 79.71 (mL/min/1.73m2); Glucose 99 mg/dL (74-106); Potassium 3.6 mmol/L (3.5-5.1); Sodium 135 mmol/L (136-145)
--- NOTE | 2024-09-12 22:34 | DI.[facility]_ITS ---
PROCEDURE INFORMATION: Exam: XR Chest Exam date and time: 09/12/2024 9:25 PM Age: 68 years old Clinical indication: Cough TECHNIQUE: Imaging protocol: Radiologic exam of the chest. Views: 2 views. COMPARISON: CT CHEST WO 12/29/2023 7:50 AM FINDINGS: Lungs: Right middle lobe and lingular infiltrates are identified consistent with a pneumonia. Pleural spaces: Unremarkable. No pleural effusion. No pneumothorax. Heart/Mediastinum: Unremarkable. No cardiomegaly. Bones/joints: Dextroscoliosis of thoracic spine. IMPRESSION: Right middle lobe and lingular pneumonia. Continued follow-up to resolution is recommended. Dictated and Authenticated by: Waldo Loene MD. Orderin Jose Guadalupe Malone MD
[2024-09-12 22:38] LABS: Absolute Basophil Count 0.07 10^3/uL (0.0-0.2); Absolute Lymphocyte Count 2.69 10^3/uL (1.2-3.4); Absolute Monocyte Count 0.64 10^3/uL (0.1-0.8); Absolute Neutrophil Count 3.68 10^3/uL (1.2-6.7); Atypical Lymphocytes % 3 %; Diff Comment Manual Differential; RBC Morphology Normal
[2024-09-12] MEDS: Amoxicillin 875/Clav. 125 TAB PO (23:21)
[2024-09-12] MEDS: Azithromycin 250 MG TAB 500 MG PO (23:21)
[2024-09-12 23:22] LABS: Source Nasopharynx
[2024-09-20 13:38] LABS: B. pertussis IgG Negative (Negative); B. pertussis Value 5.39 IU/mL
== END 2024-09-12 23:33 | disposition home or self-care (01) ==
PROVIDERS: Emergency Provider Nurse Practitioner Family; PCP Nurse Practitioner Family
DX: J18.9 Pneumonia, unspecified organism (principal); R05.1 Acute cough
CPT/HCPCS: 99284 ×2; 80048; 86615; 87637; 71046; 85025

== ENCOUNTER 2024-09-28 15:08 | Outpatient (RCR) | payer SELFPAY ==
[2024-08-30 00:02] VITALS: BP 127/59; PULSE 85
[2024-08-31 15:48] VITALS: BP 121/57; PULSE 78
[2024-09-05 15:21] VITALS: BP 138/65; PULSE 77; O2SAT 97
[2024-09-07 15:21] VITALS: BP 123/57; PULSE 95; O2SAT 96
[2024-09-19 15:18] VITALS: BP 141/71; PULSE 76; O2SAT 98
[2024-09-21 15:22] VITALS: BP 120/63; PULSE 89; O2SAT 96
[2024-09-28 15:19] VITALS: BP 122/65; PULSE 91; O2SAT 97
== END 2024-09-29 23:59 | disposition home or self-care (01) ==
LOC: CR 15:08
PROVIDERS: PCP Nurse Practitioner Family; Visit Provider Internal Medicine Cardiovascular Disease
DX: R69 Illness, unspecified (principal)

== ENCOUNTER 2024-10-26 15:00 | Outpatient (RCR) | payer SELFPAY ==
[2024-09-30 00:04] VITALS: BP 127/59; PULSE 85
[2024-10-05 15:28] VITALS: BP 128/69; PULSE 87
[2024-10-10 15:09] VITALS: BP 129/64; PULSE 76; O2SAT 97
[2024-10-12 15:20] VITALS: BP 124/61; PULSE 83; O2SAT 97
[2024-10-17 15:11] VITALS: BP 117/63; PULSE 67; O2SAT 96
== END 2024-10-29 23:59 | disposition home or self-care (01) ==
LOC: CR 15:00
PROVIDERS: PCP Nurse Practitioner Family; Visit Provider Internal Medicine Cardiovascular Disease
DX: R69 Illness, unspecified (principal)

== ENCOUNTER 2024-11-28 15:00 | Outpatient (RCR) | payer SELFPAY ==
[2024-11-16 15:08] VITALS: BP 125/61; PULSE 84; O2SAT 96
[2024-11-23 15:20] VITALS: BP 137/72; PULSE 82; O2SAT 98
[2024-11-28 15:07] VITALS: BP 115/60; PULSE 84; O2SAT 96
== END 2024-11-29 23:59 | disposition home or self-care (01) ==
LOC: CR 15:00
PROVIDERS: PCP Nurse Practitioner Family; Visit Provider Internal Medicine Cardiovascular Disease
DX: R69 Illness, unspecified (principal)

== ENCOUNTER 2024-12-20 01:00 | Outpatient (CLI) | payer MEDICARE, SELFPAY ==
[2024-12-20 09:29] LABS: ALT 19 U/L (14-59); AST 20 U/L (15-37); Albumin 3.5 g/dL (3.4-5.0); Alkaline Phosphatase 69 U/L (46-116); Anion Gap 6.1 mmol/L (3-11); BUN 15 mg/dL (7-18); Bilirubin, Total 0.8 mg/dL (0.2-1.0); CO2 31.9 mmol/L (21.0-32.0); Calcium 8.9 mg/dL (8.5-10.1); Calculated LDL 141 mg/dL (<100); Chloride 102 mmol/L (98-107); Cholesterol 217 mg/dL (<200); Estimated GFR 79.22 (mL/min/1.73m2); Glucose 102 mg/dL (74-106); HDL Cholesterol 64 mg/dL (>or=50); Potassium 4.2 mmol/L (3.5-5.1); Sodium 140 mmol/L (136-145); TSH (W/Ref FT4) 1.08 uIU/mL (0.36-3.74); Total Protein 7.3 g/dL (6.4-8.2); Triglyceride 60 mg/dL (<150)
[2024-12-20 13:08] LABS: Hemoglobin A1C 5.7 % (<5.7)
== END 2024-12-20 01:01 | disposition home or self-care (01) ==
LOC: LBO 01:00
PROVIDERS: PCP Nurse Practitioner Family; Visit Provider Nurse Practitioner Family
DX: E04.2 Nontoxic multinodular goiter (principal); Z00.00 Encounter for general adult medical examination without abnormal findings; M81.0 Age-related osteoporosis without current pathological fracture; R73.03 Prediabetes; L40.50 Arthropathic psoriasis, unspecified; M25.562 Pain in left knee; J45.909 Unspecified asthma, uncomplicated
CPT/HCPCS: 36415; 80053; 80061; 83036; 84443

== ENCOUNTER 2024-12-27 03:03 | Outpatient (CLI) | payer MEDICARE, SELFPAY ==
--- NOTE | 2024-12-27 07:55 | DI.US_ITS ---
Exam(s) US ABDOMEN PELVIS EXAM: US ABDOMEN PELVIS CLINICAL HISTORY: diffuse abd pain, worse on the lower left side,r10.9 TECHNIQUE: Ultrasound abdomen performed using standard protocol. Transabdominal pelvic ultrasound was performed. COMPARISON: US PELVIS TRANSVAG from 02/19/2016 US US ABDOMEN LIMITED from 07/22/2020 FINDINGS: ABDOMEN ABDOMINAL AORTA AND IVC: Visualized portions normal caliber. PANCREAS: Normal where visualized. LIVER: Normal. Hepatopetal flow in the Portal Vein. No evidence of a hepatic mass. The liver measures 15.2cm long. GALLBLADDER:Status post cholecystectomy. BILIARY SYSTEM: Common bile duct measures 8. No intrahepatic biliary ductal dilation. KIDNEYS: Kidneys are symmetric in size. No evidence of renal calculi. No evidence of hydronephrosis. No renal mass or cyst identified. SPLEEN: Not enlarged. ASCITES: None seen. The left lower quadrant was evaluated sonographically and is unremarkable. PELVIC: UTERUS: Position: Anteverted. Size: 6.4 long by 4.6 AP by 5.2 transverse cm Endometrium: The endometrial stripe was not well seen on the transabdominal examination. Myometrium: Unremarkable. Cervix: Unremarkable. OVARIES: Right: 1.6 x 1.1 x 1.5 cm Cyst or mass: No suspicious cystic or solid masses are present. Left: 2.1 x 1.2 x 2.0 cm Cyst or mass: No suspicious cystic or solid masses are present. DOPPLER: Color: Symmetric and uniform flow to both ovaries. No hyperemia. CUL-DE-SAC: Free fluid: None. IMPRESSION: No acute abnormality is appreciated. DATA REPOSITORY:
== END 2024-12-27 03:23 ==
LOC: DI 03:03
PROVIDERS: PCP Nurse Practitioner Family; Visit Provider Nurse Practitioner Family
DX: R10.9 Unspecified abdominal pain (principal)
CPT/HCPCS: 76700; 76856

== ENCOUNTER 2024-12-28 14:00 | Outpatient (RCR) | payer SELFPAY ==
[2024-12-07 15:05] VITALS: BP 116/55; PULSE 74; O2SAT 93
[2024-12-14 15:00] VITALS: BP 110/58; PULSE 85; O2SAT 95
[2024-12-28 15:43] VITALS: BP 121/60; PULSE 75
== END 2024-12-30 23:59 | disposition home or self-care (01) ==
LOC: CR 14:00
PROVIDERS: PCP Nurse Practitioner Family; Visit Provider Internal Medicine Cardiovascular Disease
DX: R69 Illness, unspecified (principal)

== ENCOUNTER 2025-01-07 07:45 | Outpatient (CLI) | payer MEDICARE, SELFPAY ==
--- NOTE | 2025-01-07 06:30 | DI.US_ITS ---
Exam(s) US THYROID EXAM: US THYROID CLINICAL HISTORY: Monitoring thyroid nodule,e04.1. TECHNIQUE: Ultrasound thyroid performed using standard protocol. COMPARISON: US US ABDOMEN PELVIS from 12/27/2024 FINDINGS: There is a solitary similar appearing nodule in each lobe. Details as below: RIGHT THYROID LOBE: Measures 1.6 cm AP x 1.8 cm wide x 4.9 cm craniocaudal The previously described nodule in the lateral aspect of the right thyroid lobe measures 1.5 cm x 0.9 cm x 0.9 cm , Similar to the prior study of December 2022. Composition: Solid-2 points Echogenicity: Slightly hyperechoic compared to surrounding gland parenchyma-1 point Shape: Wider than taller-0 points Margin: Smooth- 0 points Echogenic Foci: None-0 points Total Points for this nodule: 3 ACR Ti-Rads Category: TR3 This TR 3 level nodule does not require biopsy as it measures less than 2.5 cm ISTHMUS: The isthmus is again noted be somewhat thick, measuring 7 mm. LEFT THYROID LOBE: Measures 1.8 cm AP x 1.7 wide x 6 cm craniocaudal There is an isoechoic nodule noted in the medial aspect of the left lobe adjacent to the isthmus. Details as follows: The size of this nodule measures 1.2 x 0.8 x 1.3 cm Composition: Solid-2 points Echogenicity: Isoechoic compared to surrounding gland-1 points Shape: Wider than taller in the transverse plane-0 points Margin: Smooth-0 points Echogenic Foci: None-0 points Total points for this nodule: 3 ACR Ti-Rads Category: 3 This TR 3 level nodule does not require biopsy as it measures less than 2.5 cm. LYMPH NODES: There is no significant adenopathy. IMPRESSION: 1. Single TR 3 level nodule noted in each thyroid lobe as described above. These do not require biopsy at this time as they are TR 3 level nodules measuring less than 2.5 cm 2. There is no significant lymphadenopathy. DATA REPOSITORY:
== END 2025-01-07 08:05 ==
PROVIDERS: PCP Nurse Practitioner Family; Visit Provider Nurse Practitioner Family
DX: E04.1 Nontoxic single thyroid nodule (principal)
CPT/HCPCS: 76536

== ENCOUNTER 2025-01-23 15:00 | Outpatient (RCR) | payer SELFPAY ==
[2025-01-02 16:04] VITALS: BP 124/63; PULSE 86; O2SAT 95
[2025-01-04 15:00] VITALS: BP 118/57; PULSE 80; O2SAT 98
[2025-01-11 15:00] VITALS: BP 127/60; PULSE 77; O2SAT 95
[2025-01-16 15:05] VITALS: BP 128/62; PULSE 88
[2025-01-18 14:51] VITALS: BP 120/63; PULSE 77; O2SAT 98
[2025-01-18 15:00] VITALS: BP 120/63; PULSE 77; O2SAT 96
[2025-01-23 15:16] VITALS: BP 134/64; PULSE 78
== END 2025-01-29 23:59 | disposition home or self-care (01) ==
LOC: CR 15:00
PROVIDERS: PCP Nurse Practitioner Family; Visit Provider Internal Medicine Cardiovascular Disease
DX: R69 Illness, unspecified (principal)

== ENCOUNTER 2025-02-22 15:00 | Outpatient (RCR) | payer MEDICARE, SELFPAY ==
[2025-01-30 15:07] VITALS: BP 115/61; PULSE 91; O2SAT 96
[2025-02-01 15:42] VITALS: BP 135/64; PULSE 64
[2025-02-06 15:21] VITALS: BP 121/56; PULSE 78; O2SAT 99
[2025-02-08 15:15] VITALS: BP 117/60; PULSE 89; O2SAT 97
[2025-02-13 15:37] VITALS: BP 131/62; PULSE 85; O2SAT 98
[2025-02-22 15:15] VITALS: BP 131/59; PULSE 88; O2SAT 97
== END 2025-03-01 23:59 | disposition home or self-care (01) ==
LOC: CR 15:00
PROVIDERS: PCP Nurse Practitioner Family; Visit Provider Internal Medicine Cardiovascular Disease
DX: R69 Illness, unspecified (principal)

== ENCOUNTER 2025-03-06 03:14 | Outpatient (CLI) | payer MEDICARE, SELFPAY ==
[2025-03-06 08:33] LABS: Anion Gap 4.7 mmol/L (3-11); BUN 15 mg/dL (7-18); CO2 33.3 mmol/L (21.0-32.0); Calcium 8.6 mg/dL (8.5-10.1); Chloride 102 mmol/L (98-107); Glucose 100 mg/dL (74-106); Potassium 4.0 mmol/L (3.5-5.1); Sodium 140 mmol/L (136-145)
== END 2025-03-06 03:15 | disposition home or self-care (01) ==
LOC: LBO 03:14
PROVIDERS: PCP Nurse Practitioner Family; Visit Provider Internal Medicine Rheumatology
DX: M81.0 Age-related osteoporosis without current pathological fracture (principal)
CPT/HCPCS: 36415; 80048

== ENCOUNTER 2025-03-13 01:38 | Outpatient (RCR) | payer MEDICARE, SELFPAY ==
[2025-02-27 15:45] VITALS: BP 127/64; PULSE 84
[2025-03-13] MEDS: Denosumab 60 MG/ML SYR SC (13:18)
== END 2025-03-31 23:59 | disposition home or self-care (01) ==
LOC: INF 01:38
PROVIDERS: PCP Nurse Practitioner Family; Visit Provider Family Medicine
DX: M81.0 Age-related osteoporosis without current pathological fracture (principal)
CPT/HCPCS: 96372; J0897

== ENCOUNTER 2025-03-22 15:00 | Outpatient (RCR) | payer SELFPAY ==
[2025-03-06 15:14] VITALS: BP 137/67; PULSE 87; O2SAT 98
[2025-03-08 15:04] VITALS: BP 124/61; PULSE 82; O2SAT 96
[2025-03-13 15:14] VITALS: BP 138/59; PULSE 88; O2SAT 98
[2025-03-15 15:32] VITALS: BP 127/57; PULSE 76; RESP 97
[2025-03-20 15:23] VITALS: BP 130/59; PULSE 77
[2025-03-22 15:05] VITALS: BP 115/59; PULSE 81; O2SAT 98
== END 2025-03-31 23:59 | disposition home or self-care (01) ==
LOC: CR 15:00
PROVIDERS: PCP Nurse Practitioner Family; Visit Provider Internal Medicine Cardiovascular Disease
DX: R69 Illness, unspecified (principal)

== ENCOUNTER 2025-03-25 03:36 | Outpatient (CLI) | payer MEDICARE, SELFPAY ==
[2025-03-25] MEDS: Inhaler, Assist Device 1 EACH MC (14:08)
[2025-03-25] MEDS: Levalbuterol HFA 15 GM INH 4 PUFF IH (14:08)
--- NOTE | 2025-03-25 14:49 | W.PFT ---
Date of service: 03/25/25 Time of Service: 12:58 Pulmonary Function Test Result Indications: Bronchiectasis Impression 1. Good patient effort was noted. ATS standards for reproducibility were met. 2. Spirometry showed a reduced FEV1:FVC ratio and a reduction on midflows, consistent wiht mild obstructive lung disease. FEV1 was 93% predicted (1.88L) 3. Following the administration of a bronchodilator there was not a significant response 4. DLCO was normal at 91%
== END 2025-03-25 03:37 | disposition home or self-care (01) ==
LOC: RT 03:36
PROVIDERS: PCP Nurse Practitioner Family; Visit Provider Internal Medicine Rheumatology
DX: J47.9 Bronchiectasis, uncomplicated (principal); J44.9 Chronic obstructive pulmonary disease, unspecified
CPT/HCPCS: 94060; 94729

== ENCOUNTER 2025-04-03 15:08 | Outpatient (RCR) | payer SELFPAY ==
[2025-04-03 15:10] VITALS: BP 129/63; PULSE 88; O2SAT 96
== END 2025-05-01 23:59 | disposition home or self-care (01) ==
LOC: CR 15:08
PROVIDERS: PCP Nurse Practitioner Family; Visit Provider Internal Medicine Cardiovascular Disease
DX: R69 Illness, unspecified (principal)